=== PATIENT | female | born 1975 | race Caucasian/White ===

== ENCOUNTER → 2017-10-11 | Outpatient (CLI) | payer MEDICARE, MEDICAID | LOC: RAD 09:51 | PROVIDERS: ATTEND Nurse Practitioner Family | DX: Z12.31 Encounter for screening mammogram for malignant neoplasm of breast (principal) | CPT/HCPCS: 77067 ==

== ENCOUNTER → 2018-07-22 | Outpatient (CLI) | payer MEDICARE, MEDICAID ==
[~2018-07-22] MED LIST: ACHD5005 PO; METR500T PO
[2018-07-22 18:05] LABS: BASOPHILS % (AUTO) 0 % (0-10); EOSINOPHILS % (AUTO) 0 % (0-10); HEMATOCRIT 36 % (35-52); HEMOGLOBIN 12.6 G/DL (11.5-16.0); LYMPHOCYTES # (AUTO) 0.3 X 10^3 (1.0-4.0); LYMPHOCYTES % (AUTO) 6 % (12-44); MEAN CORPUSCULAR HEMOGLOBIN 31 PG (25-34); MEAN CORPUSCULAR HGB CONC 35 G/DL (32-36); MEAN CORPUSCULAR VOLUME 89 FL (80-99); MEAN PLATELET VOLUME 9.1 FL (7.4-10.4); MONOCYTES # (AUTO) 0.1 X 10^3 (0.0-1.0); MONOCYTES % (AUTO) 3 % (0-12); NEUTROPHILS # (AUTO) 4.3 X 10^3 (1.8-7.8); NEUTROPHILS % (AUTO) 91 % (42-75); PLATELET COUNT 385 10^3/uL (130-400); RED BLOOD COUNT 4.07 10^6/uL (4.35-5.85); RED CELL DISTRIBUTION WIDTH 13.8 % (10.0-14.5); WHITE BLOOD COUNT 4.7 10^3/uL (4.3-11.0)
[2018-07-22 18:24] LABS: ALANINE AMINOTRANSFERASE 38 U/L (0-55); ALBUMIN 3.5 GM/DL (3.2-4.5); ALKALINE PHOSPHATASE 68 U/L (40-136); AMYLASE 37 U/L (25-125); BILIRUBIN,TOTAL 0.4 MG/DL (0.1-1.0); BUN/CREATININE RATIO 10; CALCIUM 8.8 MG/DL (8.5-10.1); CARBON DIOXIDE 22 MMOL/L (21-32); CHLORIDE 104 MMOL/L (98-107); CREATININE SERUM 0.84 MG/DL (0.60-1.30); GFR ESTIMATED > 60; GLUCOSE 110 MG/DL (70-105); LIPASE 9 U/L (8-78); POTASSIUM 3.1 MMOL/L (3.6-5.0); SODIUM 137 MMOL/L (135-145); TOTAL PROTEIN 6.7 GM/DL (6.4-8.2)
[2018-07-22 18:52] LABS: EOSINOPHILS % (MANUAL) 0 %
[2018-07-22 18:53] LABS: BAND NEUTROPHILS 4 %; BASOPHILS % (MANUAL) 0 %; LYMPHOCYTES % (MANUAL) 5 %; MONOCYTES % (MANUAL) 1 %; NEUTROPHILS % (MANUAL) 90 %; RBC MORPH NORMAL
== END ==
LOC: LAB 17:44
PROVIDERS: ATTEND Nurse Practitioner Family
DX: R50.9 Fever, unspecified (principal); R10.11 Right upper quadrant pain
CPT/HCPCS: 36415; 80053; 82150; 83690; 85007; 85027; 87088

== ENCOUNTER 2018-07-23 19:12 | Emergency (ER) | payer MEDICARE, MEDICAID ==
[~2018-07-23] VITALS: Ht 157.5 cm; Wt 99.8 kg
--- OUTSIDE RECORDS SUMMARY | 2018-07-23 19:20 | XMS REPORT | Continuity of Care Document ---
Author Author [facility] Organization [facility] Address Unknown Phone Unavailable Allergies There is no data. Medications There is no data. Problems Date Dx Coded Attending Type Code Diagnosis Diagnosed By 05/07/2015 JEANA AUGUSTIN MUD CLEANER OPERATOR Ot V76.12 05/26/2015 JEANA AUGUSTIN MUD CLEANER OPERATOR Ot V76.12 10/01/2017 JEANA AUGUSTIN MUD CLEANER OPERATOR Ot Z12.31 ENCNTR SCREEN MAMMOGRAM FOR MALIGNANT NE 10/11/2017 JEANA AUGUSTIN MUD CLEANER OPERATOR Ot Z12.31 ENCNTR SCREEN MAMMOGRAM FOR MALIGNANT NE 10/11/2017 JEANA AUGUSTIN MUD CLEANER OPERATOR Ot Z12.31 ENCNTR SCREEN MAMMOGRAM FOR MALIGNANT NE 11/01/2017 JEANA AUGUSTIN MUD CLEANER OPERATOR Ot Z12.31 ENCNTR SCREEN MAMMOGRAM FOR MALIGNANT NE 11/13/2017 JEANA AUGUSTIN MUD CLEANER OPERATOR Ot Z12.31 ENCNTR SCREEN MAMMOGRAM FOR MALIGNANT NE Procedures There is no data. Results Test Result Range Bacterial urine culture - 07/22/18 17:00 Bacterial urine culture SEE COMMEN NRG COLONY COUNT . NRG Complete blood count (CBC) with automated white blood cell (WBC) differential - 07/22/18 18:00 Blood leukocytes automated count (number/volume) 4.7 10*3/uL 4.3-11.0 Blood erythrocytes automated count (number/volume) 4.07 10*6/uL 4.35-5.85 Venous blood hemoglobin measurement (mass/volume) 12.6 g/dL 11.5-16.0 Blood hematocrit (volume fraction) 36 % 35-52 Automated erythrocyte mean corpuscular volume 89 [foz_us] 80-99 Automated erythrocyte mean corpuscular hemoglobin (mass per erythrocyte) 31 pg 25-34 Automated erythrocyte mean corpuscular hemoglobin concentration measurement ( mass/volume) 35 g/dL 32-36 Automated erythrocyte distribution width ratio 13.8 % 10.0-14.5 Automated blood platelet count (count/volume) 385 10*3/uL 130-400 Automated blood platelet mean volume measurement 9.1 [foz_us] 7.4-10.4 Automated blood neutrophils/100 leukocytes 91 % 42-75 Automated blood lymphocytes/100 leukocytes 6 % 12-44 Blood monocytes/100 leukocytes 3 % 0-12 Automated blood eosinophils/100 leukocytes 0 % 0-10 Automated blood basophils/100 leukocytes 0 % 0-10 Blood neutrophils automated count (number/volume) 4.3 10*3 1.8-7.8 Blood lymphocytes automated count (number/volume) 0.3 10*3 1.0-4.0 Blood monocytes automated count (number/volume) 0.1 10*3 0.0-1.0 Automated eosinophil count 0.0 10*3/uL 0.0-0.3 Automated blood basophil count (count/volume) 0.0 10*3/uL 0.0-0.1 Comprehensive metabolic panel - 07/22/18 18:00 Serum or plasma sodium measurement (moles/volume) 137 mmol/L 135-145 Serum or plasma potassium measurement (moles/volume) 3.1 mmol/L 3.6-5.0 Serum or plasma chloride measurement (moles/volume) 104 mmol/L 98-107 Carbon dioxide 22 mmol/L 21-32 Serum or plasma anion gap determination (moles/volume) 11 mmol/L 5-14 Serum or plasma urea nitrogen measurement (mass/volume) 8 mg/dL 7-18 Serum or plasma creatinine measurement (mass/volume) 0.84 mg/dL 0.60-1.30 Serum or plasma urea nitrogen/creatinine mass ratio 10 NRG Serum or plasma creatinine measurement with calculation of estimated glomerular filtration rate > NRG Serum or plasma glucose measurement (mass/volume) 110 mg/dL 70-105 Serum or plasma calcium measurement (mass/volume) 8.8 mg/dL 8.5-10.1 Serum or plasma total bilirubin measurement (mass/volume) 0.4 mg/dL 0.1-1.0 Serum or plasma alkaline phosphatase measurement (enzymatic activity/volume) 68 U/L 40-136 Serum or plasma aspartate aminotransferase measurement (enzymatic activity/ volume) 56 U/L 5-34 Serum or plasma alanine aminotransferase measurement (enzymatic activity/volume ) 38 U/L 0-55 Serum or plasma protein measurement (mass/volume) 6.7 g/dL 6.4-8.2 Serum or plasma albumin measurement (mass/volume) 3.5 g/dL 3.2-4.5 CALCIUM CORRECTED 9.2 mg/dL 8.5-10.1 Serum or plasma amylase measurement (enzymatic activity/volume) - 07/22/18 18: 00 Serum or plasma amylase measurement (enzymatic activity/volume) 37 U /L 25-125 Lipase - 07/22/18 18:00 Lipase 9 U/L 8-78 Blood manual differential performed detection - 07/22/18 18:00 Blood monocytes/100 leukocytes 1 % NRG Manual blood segmented neutrophils/100 leukocytes 90 % NRG Blood band neutrophils/100 leukocytes 4 % NRG Manual blood lymphocytes/100 leukocytes 5 % NRG Manual eosinophils/100 leukocytes in nose 0 % NRG Manual blood basophils/100 leukocytes 0 % NRG Blood erythrocyte morphology finding identification NORMAL NRG Encounters ACCT No. Visit Date/Time Discharge Status Pt. Type Provider Facility Loc./Unit Complaint [id number] 10/11/2017 09:51:00 10/11/2017 23:59:59 CLS Outpatient JEANA AUGUSTIN [facility] RAD SCREENING [id number] 04/16/2015 07:19:00 04/16/2015 23:59:59 CLS Outpatient JEANA AUGUSTIN [facility] RAD [id number] 07/23/2018 19:13:00 ACT Emergency REYMUNDO MENDOZA MD [facility] ER ABD PAIN [id number] 07/22/2018 17:44:00 ACT Outpatient CYNTHIA GUZMAN APRN [facility] LAB FEVER,ABD PAIN [id number] 04/16/2015 07:19:47 ACT Document Registration
--- OUTSIDE RECORDS SUMMARY | 2018-07-23 19:20 | XMS REPORT | CCD ---
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 Name Role Phone Mildred Saunders PP Unavailable CCM Unavailable Summary Purpose Interface Exchange Insurance Providers Payer name Policy type / Coverage type Covered democrat ID Effective Begin Date Effective End Date WPS Medicare Part B Medicare Part B [id number] 2012 Unknown [facility] Medicare Part B [id number] 2012 Unknown Family history Mother Diagnosis Age At Onset No Family Disease Entered N/A Father Diagnosis Age At Onset No Family Disease Entered N/A Brother Diagnosis Age At Onset No Family Disease Entered N/A Social History Social History Element Codes Description Effective Dates Living arrangements Unknown House 07/13/2011 Employment Unknown Currently employed [employer]) 07/06/[address]: 733691054 Nonsmoker 07/06/[address]: 390507179 Never drinks alcohol 07/06/2011 Has the patient ever used illegal drugs? Unknown Has never used illegal drugs 07/06/2011 Allergies, Adverse Reactions, Alerts Allergies, Adverse Reactions, Alerts data not found Past Medical History Illness Codes Condition Status Onset Date Resolved Date Cerebral palsy, unspecified ICD-9: 343.9 ICD-10: G80.9 Active 06/22/2017 Unknown Encounter for general adult medical examination without abnormal findings ICD-9: V70.0 ICD-10: Z00.00 Active 05/26/2014 Unknown Encounter for screening mammogram for malignant neoplasm of breast ICD-9: V76.10 ICD-10: Z12.31 Active 09/27/2017 Unknown Iliotibial band syndrome, left leg ICD-9: 728.89 ICD-10: M76.32 Active 06/22/2017 Unknown Acute pharyngitis due to other specified organisms ICD-9: 462 ICD-10: J02.8 Active 06/11/2017 Unknown Cough ICD-9: 786.2 ICD-10: R05 Active 06/11/2017 Unknown Enlarged lymph nodes, unspecified ICD-9: 785.6 ICD-10: R59.9 Active 06/11/2017 Unknown Other muscle spasm ICD -9: 728.85 ICD-10: M62.838 Active 04/11/2017 Unknown ROUTINE GYNE EXAM ICD- 9: V72.31 Active 05/20/2012 Unknown Encounter for long-term (current) use of other medications ICD-9: V58.69 Active 06/01/2014 Unknown Encounter for therapeutic drug level monitoring ICD-9: V58.83 Active 06/01/2014 Unknown Visit for TB skin test ICD-9: V74.1 Active 05/28/2014 Unknown Routine medical exam ICD-9: V70.0 Active 05/26/2014 Unknown Seizure disorder ICD-9 : 345.90 Active 05/26/2014 Unknown ACUTE SINUSITIS ICD-9 : 461.9 Active 08/07/2013 Unknown Acute maxillary sinusitis ICD-9: 461.0 Active 11/18/2012 Unknown BPPV (benign paroxysmal positional vertigo) ICD-9: 386.11 Active 11/18/2012 Unknown Chronic rhinitis ICD-9 : 472.0 Active 12/18/2011 Unknown COUGH ICD-9: 786.2 Active 12/18/2011 Unknown Muscle spasm, nocturnal ICD-9: 728.85 Active 07/10/2011 Unknown Cerebral palsy Unknown Active 07/06/2011 Unknown Seizures Unknown Active 07/06/2011 Unknown Problems Condition Codes Effective Dates Condition Status Cerebral palsy, unspecified ICD-9: 343.9 ICD-10: G80.9 06/22/2017 Active Encounter for general adult medical examination without abnormal findings ICD-9: V70.0 ICD-10: Z00.00 05/26/2014 Active Encounter for screening mammogram for malignant neoplasm of breast ICD-9: V76.10 ICD-10: Z12.31 09/27/2017 Active Iliotibial band syndrome, left leg ICD-9: 728.89 ICD-10: M76.32 06/22/2017 Active Acute pharyngitis due to other specified organisms ICD-9: 462 ICD-10: J02.8 06/11/2017 Active Cough ICD-9: 786.2 ICD-10: R05 06/11/2017 Active Enlarged lymph nodes, unspecified ICD-9: 785.6 ICD-10: R59.9 06/11/2017 Active Other muscle spasm ICD -9: 728.85 ICD-10: M62.838 04/11/2017 Active ROUTINE GYNE EXAM ICD- 9: V72.31 05/20/2012 Active Encounter for long-term (current) use of other medications ICD-9: V58.69 2013 Active Encounter for therapeutic drug level monitoring ICD-9: V58.83 06/01/2014 Active Visit for TB skin test ICD-9: V74.1 05/28/2014 Active Routine medical exam ICD-9: V70.0 05/26/2014 Active Seizure disorder ICD-9 : 345.90 05/26/2014 Active ACUTE SINUSITIS ICD-9 : 461.9 08/07/2013 Active Acute maxillary sinusitis ICD-9: 461.0 11/18/2012 Active BPPV (benign paroxysmal positional vertigo) ICD-9: 386.11 11/18/2012 Active Chronic rhinitis ICD-9 : 472.0 12/18/2011 Active COUGH ICD-9: 786.2 12/18/2011 Active Muscle spasm, nocturnal ICD-9: 728.85 07/10/2011 Active Cerebral palsy Unknown 07/06/2011 Active Seizures Unknown 07/06/2011 Active Medications Medication Codes Instructions Start Date Stop Date Status Fill Instructions Ortho Tri-Cyclen (28) 0.18 mg(7)/0.215 mg(7)/0.25 mg(7)-35 mcg tablet RxNorm: 918781 TAKE ONE TABLET BY MOUTH ONCE DAILY AT BEDTIME 11/12/2017 No Stop Date Active Zithromax Z-Juaquin 250 mg tablet RxNorm: 771611 1 Tablet(s) PO UD 10/16/2017 No Stop Date Active cephalexin 500 mg tablet RxNorm: 786679 1 Tablet(s) PO TID 06/17/2017 Inactive Keppra 500 mg tablet RxNorm: 427371 TAKE ONE-HALF TABLET BY MOUTH TWICE DAILY 05/21/2017 11/16/2017 Active Kenalog 40 mg/mL suspension for injection RxNorm: 0341761 Milliliter(s) Inj 04/11/2017 04/11/2017 Inactive Keppra 500 mg tablet RxNorm: 802428 TAKE ONE-HALF TABLET BY MOUTH TWICE DAILY 11/20/2016 05/18/2017 Inactive Ortho Tri-Cyclen (28) 0.18 mg(7)/0.215 mg(7)/0.25 mg(7)-35 mcg tablet RxNorm: 319916 TAKE ONE TABLET BY MOUTH ONCE DAILY AT BEDTIME 09/19/2016 11/11/2017 Inactive Ortho Tri-Cyclen (28) 0.18 mg(7)/0.215 mg(7)/0.25 mg(7)-35 mcg tablet RxNorm: 510891 1 Tablet(s) PO daily TAKE ONE TABLET BY MOUTH AT BEDTIME 04/03/2016 09/17/2016 Inactive Fill when patient requests a refill Keppra 500 mg tablet RxNorm: 277797 TAKE ONE-HALF TABLET BY MOUTH TWICE DAILY 02/07/2016 11/02/2016 Inactive Ortho Tri-Cyclen (28) 0.18 mg(7)/0.215 mg(7)/0.25 mg(7)-35 mcg tablet RxNorm: 093119 1 Tablet(s) PO daily TAKE ONE TABLET BY MOUTH AT BEDTIME 08/23/2015 04/02/2016 Inactive Calcium 500 + D 500 mg (1,250 mg)-200 unit tablet RxNorm: 648046 1 Tablet(s) PO BID 06/02/2015 No Stop Date Active Keppra 500 mg tablet RxNorm: 719862 Tablet(s) TAKE ONE-HALF TABLET BY MOUTH TWICE DAILY 05/13/2015 02/06/2016 Inactive Keppra 500 mg tablet RxNorm: 235286 Tablet(s) TAKE ONE-HALF TABLET BY MOUTH TWICE DAILY 02/25/2015 05/12/2015 Inactive [SAVINGS FOR NON-COVERED DRUGS -- BIN:[id number], PCN: [id number], Group: [id number], ID# [id number], Questions: . THIS IS NOT INSURANCE.] Ortho Tri-Cyclen (28) 0.18 mg(7)/0.215 mg(7)/0.25 mg(7)-35 mcg tablet RxNorm: 012113 TAKE ONE TABLET BY MOUTH AT BEDTIME 07/09/2014 08/22/2015 Inactive Keppra 500 mg tablet RxNorm: 290952 TAKE ONE-HALF TABLET BY MOUTH TWICE DAILY 06/08/2014 02/24/2015 Inactive azithromycin 500 mg tablet RxNorm: 166822 1 Tablet(s) PO 2013 No Stop Date Active give zpak as directed Kenalog 40 mg/mL suspension for injection RxNorm: 4038470 Milliliter(s) Inj 08/07/2013 08/07/2013 Inactive Ortho Tri-Cyclen (28) 0.18 mg(7)/0.215 mg(7)/0.25 mg(7)-35 mcg tablet RxNorm: 228512 Tablet(s) PO TAKE ONE TABLET BY MOUTH AT BEDTIME 201207/08/2014 Inactive Keppra 500 mg tablet RxNorm: 255392 Tablet(s) PO TAKE ONE-HALF TABLET BY MOUTH TWICE DAILY 05/13/2013 06/07/2014 Inactive fluticasone 50 mcg/actuation Nasal [place], Susp RxNorm: 8854905 1 [place] NASAL BID one spray in each nostril twice daily 11/18/2012 05/18/2013 Inactive azithromycin 500 mg tablet RxNorm: 537598 1 Tablet(s) PO daily 11/18/2012 11/27/2012 Inactive Ortho Tri-Cyclen (28) 0.18 mg(7)/0.215 mg(7)/0.25 mg(7)-35 mcg tablet RxNorm: 581483 1 Tablet(s) PO QHS 05/20/20122012 Inactive TAKE ONE TABLET BY MOUTH EVERY DAY Keppra 500 mg tablet RxNorm: 145987 1/2 Tablet(s) PO BID 201105/12/2013 Inactive Kenalog 40 mg/mL Susp for Injection RxNorm: 7289556 1 Milliliter(s) Inj 12/18/2011 12/18/2011 Inactive fluticasone 50 mcg/actuation Nasal [place], Susp RxNorm: 1526821 1 [place] NASAL BID one spray in each nostril twice daily 12/18/2011 04/15/2012 Inactive Ortho Tri-Cyclen (28) 0.18/0.215/0.25 mg-35 mcg(28) tablet RxNorm: 485709 Tablet(s ) PO 10/20/2011 05/19/2012 Inactive TAKE ONE TABLET BY MOUTH EVERY DAY Keppra 500 mg tablet RxNorm: 891409 1/2 Tablet(s) PO BID 201005/19/2012 Inactive multivitamin Oral RxNorm: Oral No Start Date Active Zithromax Z-Juaquin 250 mg tablet RxNorm: 917901 Tablet(s) PO UD No Start Date 04/08/2016 Inactive Keppra 500 mg Tab RxNorm: 094005 1/2 Tablet(s) PO BID No Start Date 08/27/2011 Inactive Ortho Tri-Cyclen (28) 0.18/0.215/0.25 mg-35 mcg(28) Tab RxNorm: 099340 1 Tablet(s ) PO daily No Start Date 10/19/2011 Inactive Zithromax Z-Juaquin 250 mg tablet RxNorm: 781508 1 Tablet(s) PO UD No Start Date 10/15/2017 Inactive Calcium 500 + D 500 mg (1,250 mg)-200 unit tablet RxNorm: 877581 1 Tablet(s) PO daily No Start Date 06/01/2015 Inactive Medication Administered Medication Codes Instructions Start Date Status Kenalog 40 mg/mL suspension for injection RxNorm: 0772273 Milliliter 04/11/2017 No longer Active Kenalog 40 mg/mL suspension for injection RxNorm: 4325901 Milliliter 08/07/2013 No longer Active Kenalog 40 mg/mL Susp for Injection RxNorm: 6019953 1Milliliter 12/18/2011 No longer Active Immunizations Vaccine Codes Date Status Influenza CVX: 141 07/02/2017 completed Influenza CVX: 141 05/21/2015 completed PPD Unknown 05/28/2014 completed Influenza CVX: 141 08/07/2013 completed Assessments Condition Codes Effective Dates Encounter for general adult medical examination without abnormal findings ICD-10: Z00.00 ICD-9: V70.0 09/27/2017 Encounter for screening mammogram for malignant neoplasm of breast ICD-10: Z12.31 ICD-9: V76.10 09/27/2017 Cerebral palsy, unspecified ICD-10: G80.9 ICD-9: 343.9 06/22/2017 Iliotibial band syndrome, left leg ICD-10: M76.32 ICD-9: 728.89 06/22/2017 Enlarged lymph nodes, unspecified ICD-10: R59.9 ICD-9: 785.6 06/11/2017 Cough ICD-10: R05 ICD-9: 786.2 06/11/2017 Acute pharyngitis due to other specified organisms ICD-10: J02.8 ICD-9: 462 06/11/2017 Other muscle spasm ICD-10: M62.838 ICD-9: 728.85 04/11/2017 EPILEPSY NOS, NOT INTRACT ICD-9: 345.90 04/09/2015 ROUTINE GYNE EXAM ICD-9: V72.31 2014 Encounter for therapeutic drug level monitoring ICD-9: V58.83 06/01/2014 Routine medical exam ICD-9: V70.0 2013 Encounter for long-term (current) use of other medications ICD-9: V58.69 06/01/2014 Visit for TB skin test ICD-9: V74.1 05/28 ACUTE SINUSITIS ICD-9: 461.9 08/07/2013 BPPV (benign paroxysmal positional vertigo) ICD-9: 386.11 11/18/2012 Acute maxillary sinusitis ICD-9: 461.0 CHRONIC RHINITIS ICD-9: 472.0 11/18/2012 COUGH ICD-9: 786.2 12/18/2011 Muscle spasm, nocturnal ICD-9: 728.85 Reason For Visit Reason For Visit Effective Dates Notes well woman exam (40-65 years) 09/27/2017 pain, limb 06/22/2017 lymph node enlargement/mass 06/11/2017 cough 04/11/2017 well woman exam (40-65 years) 04/10/2016 well woman exam (40-65 years) 04/09/2015 seizure 05/26/2014 cough 08/07/2013 seizure 05/19/2013 sinus congestion 11/18/2012 well woman exam (18-39 years) 05/20/2012 seizure 12/18/2011 pt has epilepsy, pt states she hasn't had any seizures seizure 07/10/2011 Results Observation Observation Code Item Item Code Result Date Levetiracetam (Keppra) S 982980 LEVETIRACETAM (KEPPRA) 3.7 ug/mL 10/02/2017 Comp Metabolic Vxd074 NA 142 mEq/L 10/01/2017 Comp Metabolic Qpt321 K 4.4 mEq/L 10/01/2017 Comp Metabolic Ung236 CL 108 mEq/L 10/01/2017 Comp Metabolic Axz646 CO2 27.0 mEq/L 10/01/2017 Comp Metabolic Gbe203 ANION GAP 11 10/01/2017 Comp Metabolic Xss038 GLUCOSE 82 mg/dL 10/01/2017 Comp Metabolic Uaz663 Creat 0.8 mg/dL 10/01/2017 Comp Metabolic Jtz583 eGFR 84 ml/min/1.73m2 10/01/2017 Comp Metabolic Alc299 BUN 12 mg/dL 10/01/2017 Comp Metabolic Xuu468 B/C Ratio 15.2 Ratio 10/01/2017 Comp Metabolic Zjy866 CALCIUM 8.5 mg/dL 10/01/2017 Comp Metabolic Rad918 ALK PHOS 50 U/L 10/01/2017 Comp Metabolic Bzc818 AST(SGOT) 13 U/L 10/01/2017 Comp Metabolic Trq764 ALT(SGPT) 15 U/L 10/01/2017 Comp Metabolic Ipl362 BILI T 0.4 mg/dL 10/01/2017 Comp Metabolic Uwm905 ALBUMIN 3.5 g/dL 10/01/2017 Comp Metabolic Ubc815 TPRO 5.9 g/dL 10/01/2017 Comp Metabolic Ddq622 GLOB 2.4 g/dL 10/01/2017 Comp Metabolic Qlc650 A/G Ratio 1.5 Ratio 10/01/2017 Comp Metabolic Svz988 Osmo 282 mOsmo 10/01/2017 Cbc With Differential Ord2 WBC 5.09 K/ul 10/01/2017 Cbc With Differential Ord2 RBC 4.11 M/ul 10/01/2017 Cbc With Differential Ord2 HGB 12.7 g/dl 10/01/2017 Cbc With Differential Ord2 HCT 38.9 % 10/01/2017 Cbc With Differential Ord2 Neut% 64.3 % 10/01/2017 Cbc With Differential Ord2 MCV 94.6 fl 10/01/2017 Cbc With Differential Ord2 Lymph% 20.4 % 10/01/2017 Cbc With Differential Ord2 MCH 30.9 pg 10/01/2017 Cbc With Differential Ord2 Sharkey% 10.4 % 10/01/2017 Cbc With Differential Ord2 Eos% 3.9 % 10/01/2017 Cbc With Differential Ord2 MCHC 32.6 pg 10/01/2017 Cbc With Differential Ord2 Baso% 1.0 % 10/01/2017 Cbc With Differential Ord2 PLT 422 K/ul 10/01/2017 Cbc With Differential Ord2 RDW 14.6 % 10/01/2017 Cbc With Differential Ord2 Neut ABS# 3.27 K/ul 10/01/2017 Cbc With Differential Ord2 Lymph ABS# 1.04 K/ul 10/01/2017 Cbc With Differential Ord2 Sharkey ABS# 0.5 K/ul 10/01/2017 Cbc With Differential Ord2 Eos ABS# 0.2 K/ul 10/01/2017 Cbc With Differential Ord2 Baso ABS# 0.1 K/ul 10/01/2017 Lipid Ord30 CHOL 153 mg/dL 10/01/2017 Lipid Ord30 HDL 55.0 mg/dl 10/01/2017 Lipid Ord30 TRIG 148 mg/dL 10/01/2017 Lipid Ord30 LDL 68 mg/dL 10/01/2017 Lipid Ord30 C/HDL 2.8 Ratio 10/01/2017 Tsh Ord6 hTSH II 1.25 uIU/mL 10/01/2017 C RAP A SC 5047124 Strep A Negative 06/11/2017 Comp Metabolic Rln609 NA 141 mEq/L 04/11/2017 Comp Metabolic Epy680 K 4.3 mEq/L 04/11/2017 Comp Metabolic Zun889 CL 107 mEq/L 04/11/2017 Comp Metabolic Tvn075 CO2 25.0 mEq/L 04/11/2017 Comp Metabolic Wrl485 ANION GAP 13 04/11/2017 Comp Metabolic Rrj313 GLUCOSE 74 mg/dL 04/11/2017 Comp Metabolic Yht922 Creat 0.7 mg/dL 04/11/2017 Comp Metabolic Nmy418 eGFR 94 ml/min/1.73m2 04/11/2017 Comp Metabolic Iol432 BUN 12 mg/dL 04/11/2017 Comp Metabolic Nhg641 B/C Ratio 16.7 Ratio 04/11/2017 Comp Metabolic Fnx330 CALCIUM 8.5 mg/dL 04/11/2017 Comp Metabolic Dsu888 ALK PHOS 50 U/L 04/11/2017 Comp Metabolic Qnj928 AST(SGOT) 16 U/L 04/11/2017 Comp Metabolic Ldn982 ALT(SGPT) 18 U/L 04/11/2017 Comp Metabolic Jnw487 BILI T 0.2 mg/dL 04/11/2017 Comp Metabolic Eqo632 ALBUMIN 3.3 g/dL 04/11/2017 Comp Metabolic Rmz834 TPRO 5.9 g/dL 04/11/2017 Comp Metabolic Qch837 GLOB 2.6 g/dL 04/11/2017 Comp Metabolic Ijo917 A/G Ratio 1.3 Ratio 04/11/2017 Comp Metabolic Ueb885 Osmo 280 mOsmo 04/11/2017 Levetiracetam (Keppra) S 919556 LEVETIRACETAM (KEPPRA) 3.0 ug/mL 07/12/2016 Comp Metabolic Bjv676 NA 138 mEq/L 07/11/2016 Comp Metabolic Pma857 K 4.6 mEq/L 07/11/2016 Comp Metabolic Kgr693 CL 103 mEq/L 07/11/2016 Comp Metabolic Xsr659 CO2 30.0 mEq/L 07/11/2016 Comp Metabolic Cba693 ANION GAP 10 07/11/2016 Comp Metabolic Lqa977 GLUCOSE 83 mg/dL 07/11/2016 Comp Metabolic Bch556 Creat 0.8 mg/dL 07/11/2016 Comp Metabolic Tov220 eGFR 87 ml/min/1.73m2 07/11/2016 Comp Metabolic The506 BUN 14 mg/dL 07/11/2016 Comp Metabolic Ifh364 B/C Ratio 18.2 Ratio 07/11/2016 Comp Metabolic Jna802 CALCIUM 9.1 mg/dL 07/11/2016 Comp Metabolic Hjs956 ALK PHOS 52 U/L 07/11/2016 Comp Metabolic Mhr227 AST(SGOT) 15 U/L 07/11/2016 Comp Metabolic Zdv962 ALT(SGPT) 14 U/L 07/11/2016 Comp Metabolic Ijp091 BILI T 0.4 mg/dL 07/11/2016 Comp Metabolic Doq334 ALBUMIN 3.6 g/dL 07/11/2016 Comp Metabolic Sum761 TPRO 6.0 g/dL 07/11/2016 Comp Metabolic Xsy746 GLOB 2.5 g/dL 07/11/2016 Comp Metabolic Reu684 A/G Ratio 1.4 Ratio 07/11/2016 Comp Metabolic Azs604 Osmo 275 mOsmo 07/11/2016 Tsh Ord6 hTSH II 2.07 uIU/mL 07/11/2016 Cbc With Differential Ord2 WBC 6.56 K/ul 07/11/2016 Cbc With Differential Ord2 RBC 4.14 M/ul 07/11/2016 Cbc With Differential Ord2 HGB 12.7 g/dl 07/11/2016 Cbc With Differential Ord2 HCT 38.6 % 07/11/2016 Cbc With Differential Ord2 Neut% 70.4 % 07/11/2016 Cbc With Differential Ord2 MCV 93.2 fl 07/11/2016 Cbc With Differential Ord2 Lymph% 17.1 % 07/11/2016 Cbc With Differential Ord2 MCH 30.7 pg 07/11/2016 Cbc With Differential Ord2 Sharkey% 8.5 % 07/11/2016 Cbc With Differential Ord2 MCHC 32.9 pg 07/11/2016 Cbc With Differential Ord2 Eos% 3.4 % 07/11/2016 Cbc With Differential Ord2 Baso% 0.6 % 07/11/2016 Cbc With Differential Ord2 PLT 408 K/ul 07/11/2016 Cbc With Differential Ord2 RDW 14.5 % 07/11/2016 Cbc With Differential Ord2 Neut ABS# 4.62 K/ul 07/11/2016 Cbc With Differential Ord2 Lymph ABS# 1.12 K/ul 07/11/2016 Cbc With Differential Ord2 Sharkey ABS# 0.6 K/ul 07/11/2016 Cbc With Differential Ord2 Eos ABS# 0.2 K/ul 07/11/2016 Cbc With Differential Ord2 Baso ABS# 0.0 K/ul 07/11/2016 Lipid Ord30 CHOL 150 mg/dL 07/11/2016 Lipid Ord30 HDL 52.0 mg/dl 07/11/2016 Lipid Ord30 TRIG 179 mg/dL 07/11/2016 Lipid Ord30 LDL 62 mg/dL 07/11/2016 Lipid Ord30 C/HDL 2.9 Ratio 07/11/2016 Levetiracetam (Keppra) S 743445 LEVETIRACETAM (KEPPRA) 3.7 ug/mL 06/01/2015 Lipid Ord30 CHOL 146 mg/dL 05/31/2015 Lipid Ord30 HDL 51.0 mg/dl 05/31/2015 Lipid Ord30 TRIG 144 mg/dL 05/31/2015 Lipid Ord30 LDL 66 mg/dL 05/31/2015 Lipid Ord30 C/HDL 2.9 Ratio 05/31/2015 Cbc With Differential Ord2 WBC 5.8 K/uL 05/31/2015 Cbc With Differential Ord2 LYM 1.0 K/uL 05/31/2015 Cbc With Differential Ord2 LYM% 17.7 % 05/31/2015 Cbc With Differential Ord2 NEUT/GRAN 4.5 K/uL 05/31/2015 Cbc With Differential Ord2 NEUT/GRAN % 77.2 % 05/31/2015 Cbc With Differential Ord2 MID 0.3 K/uL 05/31/2015 Cbc With Differential Ord2 MID% 5.1 % 05/31/2015 Cbc With Differential Ord2 RBC 4.10 M/uL 05/31/2015 Cbc With Differential Ord2 HGB 12.3 g/dL 05/31/2015 Cbc With Differential Ord2 HCT 38.7 % 05/31/2015 Cbc With Differential Ord2 MCV 94 fL 05/31/2015 Cbc With Differential Ord2 MCH 30 pg 05/31/2015 Cbc With Differential Ord2 MCHC 32 g/dL 05/31/2015 Cbc With Differential Ord2 PLT 386 K/uL 05/31/2015 Cbc With Differential Ord2 RDW 13.7 % 05/31/2015 Tsh Ord6 hTSH II 1.15 uIU/mL 05/31/2015 Comp Metabolic Bwd318 NA 137 mEq/L 05/31/2015 Comp Metabolic Buh240 K 4.1 mEq/L 05/31/2015 Comp Metabolic Xjn316 CL 106 mEq/L 05/31/2015 Comp Metabolic Tay617 CO2 24.0 mEq/L 05/31/2015 Comp Metabolic Cqv630 ANION GAP 11 05/31/2015 Comp Metabolic Env704 GLUCOSE 77 mg/dL 05/31/2015 Comp Metabolic Qjb986 Creat 0.8 mg/dL 05/31/2015 Comp Metabolic Gif751 eGFR 84 ml/min/1.73m2 05/31/2015 Comp Metabolic Jtl001 BUN 13 mg/dL 05/31/2015 Comp Metabolic Uhk690 B/C Ratio 16.3 Ratio 05/31/2015 Comp Metabolic Kat580 CALCIUM 8.4 mg/dL 05/31/2015 Comp Metabolic Lbg716 ALK PHOS 40 U/L 05/31/2015 Comp Metabolic Qvp489 AST(SGOT) 12 U/L 05/31/2015 Comp Metabolic Val106 ALT(SGPT) 12 U/L 05/31/2015 Comp Metabolic Lxx771 BILI T 0.3 mg/dL 05/31/2015 Comp Metabolic Hwq298 ALBUMIN 3.3 g/dL 05/31/2015 Comp Metabolic Vnu430 TPRO 5.4 g/dL 05/31/2015 Comp Metabolic Rff275 GLOB 2.1 g/dL 05/31/2015 Comp Metabolic Ucv841 A/G Ratio 1.6 Ratio 05/31/2015 Comp Metabolic Svz583 Osmo 273 mOsmo 05/31/2015 LEVETIRACE 6448614 LEVETIRACE 4 mcg/mL 06/04/2014 CBC 8408909 WBC 7.4 10e9/L 06/01/2014 CBC 9578513 RBC 4.18 10e12/L 06/01/2014 CBC 9896612 HGB 13.2 g/dL 06/01/2014 CBC 3194020 HCT DET 39.5 % 06/01/2014 CBC 7672860 MCV 94.5 fL 06/01/2014 CBC 4585457 MCH 31.6 pg 06/01/2014 CBC 8764376 MCHC 33.4 g/dL 06/01/2014 CBC 5075819 PLT 378 10e9/L 06/01/2014 CBC 8968777 MPV 10.7 fL 06/01/2014 CBC 0683358 LYNETTE % 74.0 % 06/01/2014 CBC 3191201 LY % 15.0 % 06/01/2014 CBC 3480895 MON % 8.0 % 06/01/2014 CBC 8083936 EOS % 2.2 % 06/01/2014 CBC 9576652 BASO % 0.8 % 06/01/2014 CBC 1680046 RDW 13.0 % 06/01/2014 CBC 4298669 ABS LYNETTE 5.48 10e9/L 06/01/2014 CBC 6471294 ABS LYMPH 1.11 10e9/L 06/01/2014 CBC 3718745 ABS MONO 0.59 10e9/L 06/01/2014 CBC 8853310 ABS EOS 0.16 10e9/L 06/01/2014 CBC 0167201 ABS BASO 0.06 10e9/L 06/01/2014 CBC 5557365 RDW-SD 43.5 fL 06/01/2014 TSH 1829401 TSH 1.026 uIU/ML 06/01/2014 GFR CALC 5375501 GFR AA >60 ML/MIN 06/01/2014 GFR CALC 9018575 GFR NON-AA >60 ML/MIN 06/01/2014 CHEM 14 1563074 AST 12 U/L 06/01/2014 CHEM 14 20280418 ALT 13 IU/L 06/01/2014 CHEM 14 1713980 BUN 13 MG/DL 06/01/2014 CHEM 14 5957394 ALBUMIN 3.8 GM/DL 06/01/2014 CHEM 14 2993810 CHLORIDE 109 MMOL/L 06/01/2014 CHEM 14 8716249 BILI TOT 0.4 MG/DL 06/01/2014 CHEM 14 2154033 ALK PHOS 45 U/L 06/01/2014 CHEM 14 4969565 SODIUM 139 MMOL/L 06/01/2014 CHEM 14 2532777 CREATININE 0.81 MG/DL 06/01/2014 CHEM 14 5917569 CALCIUM 8.5 MG/DL 06/01/2014 CHEM 14 2309830 POTASSIUM 4.3 MMOL/L 06/01/2014 CHEM 14 6415112 PROT TOT 5.8 GM/DL 06/01/2014 CHEM 14 3112701 GLUCOSE 90 MG/DL 06/01/2014 CHEM 14 3259260 BICARB 25 MMOL/L 06/01/2014 CHEM 14 8419034 ANION GAP 5 MEQ/L 06/01/2014 LIPID GRP HDL TEST 51 MG/DL 06/01/2014 LIPID GRP TRIG 108 MG/DL 06/01/2014 LIPID GRP TEST LDL 75 MG/DL 06/01/2014 LIPID GRP CHOL 148 MG/DL 06/01/2014 LIPID GRP RCHOL/HDL 2.90 RATIO 06/01/2014 LIPID GRP NON-HDL CH 97 MG/DL 06/01/2014 LEVETIRACE 1865839 LEVETIRACE 3 mcg/mL 05/23/2013 CBC 5861915 WBC 6.9 10e9/L 05/20/2013 CBC 6103554 RBC 3.88 10e12/L 05/20/2013 CBC 5465752 HGB 12.2 g/dL 05/20/2013 CBC 2275546 HCT DET 35.8 % 05/20/2013 CBC 0709091 MCV 92.3 fL 05/20/2013 CBC 8554351 MCH 31.4 pg 05/20/2013 CBC 9390811 MCHC 34.1 g/dL 05/20/2013 CBC 4020602 PLT 381 10e9/L 05/20/2013 CBC 1816919 MPV 10.8 fL 05/20/2013 CBC 3834360 LYNETTE % 75.9 % 05/20/2013 CBC 7682456 LY % 13.1 % 05/20/2013 CBC 5475982 MON % 7.8 % 05/20/2013 CBC 3269546 EOS % 2.6 % 05/20/2013 CBC 3221365 BASO % 0.6 % 05/20/2013 CBC 3581375 RDW 13.1 % 05/20/2013 CBC 4283114 ABS LYNETTE 5.24 10e9/L 05/20/2013 CBC 1107586 ABS LYMPH 0.90 10e9/L 05/20/2013 CBC 0889728 ABS MONO 0.54 10e9/L 05/20/2013 CBC 1086605 ABS EOS 0.18 10e9/L 05/20/2013 CBC 8703592 ABS BASO 0.04 10e9/L 05/20/2013 CBC 0872223 RDW-SD 43.3 fL 05/20/2013 GFR CALC 4604628 GFR AA >60 ML/MIN 05/20/2013 GFR CALC 9027366 GFR NON-AA >60 ML/MIN 05/20/2013 LIPID GRP HDL TEST 51 MG/DL 05/20/2013 LIPID GRP TRIG 165 MG/DL 05/20/2013 LIPID GRP TEST LDL 67 MG/DL 05/20/2013 LIPID GRP CHOL 151 MG/DL 05/20/2013 LIPID GRP RCHOL/HDL 2.96 RATIO 05/20/2013 CHEM 14 6997691 AST 12 U/L 05/20/2013 CHEM 14 2704268 ALT 11 IU/L 05/20/2013 CHEM 14 5174159 BUN 13 MG/DL 05/20/2013 CHEM 14 2530921 ALBUMIN 3.6 GM/DL 05/20/2013 CHEM 14 4312721 CHLORIDE 110 MMOL/L 05/20/2013 CHEM 14 9925070 BILI TOT 0.4 MG/DL 05/20/2013 CHEM 14 1797874 ALK PHOS 35 U/L 05/20/2013 CHEM 14 3460280 SODIUM 139 MMOL/L 05/20/2013 CHEM 14 4705580 CREATININE 0.76 MG/DL 05/20/2013 CHEM 14 1397286 CALCIUM 8.4 MG/DL 05/20/2013 CHEM 14 3762177 POTASSIUM 4.1 MMOL/L 05/20/2013 CHEM 14 3713666 PROT TOT 5.9 GM/DL 05/20/2013 CHEM 14 5806971 GLUCOSE 79 MG/DL 05/20/2013 CHEM 14 3823647 BICARB 23 MMOL/L 05/20/2013 CHEM 14 1016109 ANION GAP 6 MEQ/L 05/20/2013 TSH 2362512 TSH 1.738 uIU/ML 05/20/2013 LEVETIRACE 4571837 LEVETIRACE 8 mcg/mL 05/23/2012 CHEM 14 0027002 AST 12 U/L 05/20/2012 CHEM 14 7708347 ALT 11 IU/L 05/20/2012 CHEM 14 2191411 BUN 12 MG/DL 05/20/2012 CHEM 14 1433969 ALBUMIN 4.1 GM/DL 05/20/2012 CHEM 14 9000598 CHLORIDE 104 MMOL/L 05/20/2012 CHEM 14 3729664 BILI TOT 0.4 MG/DL 05/20/2012 CHEM 14 2635891 ALK PHOS 46 U/L 05/20/2012 CHEM 14 2138409 SODIUM 138 MMOL/L 05/20/2012 CHEM 14 2006747 CREATININE 0.75 MG/DL 05/20/2012 CHEM 14 1283122 CALCIUM 9.1 MG/DL 05/20/2012 CHEM 14 7415830 POTASSIUM 4.1 MMOL/L 05/20/2012 CHEM 14 8167364 PROT TOT 6.6 GM/DL 05/20/2012 CHEM 14 4912700 GLUCOSE 77 MG/DL 05/20/2012 CHEM 14 1838229 BICARB 22 MMOL/L 05/20/2012 CHEM 14 1962820 ANION GAP 12 MEQ/L 05/20/2012 GFR CALC 5853519 GFR AA >60 ML/MIN 05/20/2012 GFR CALC 7063805 GFR NON-AA >60 ML/MIN 05/20/2012 LIPID GRP HDL TEST 61 MG/DL 05/20/2012 LIPID GRP TRIG 118 MG/DL 05/20/2012 LIPID GRP TEST LDL 76 MG/DL 05/20/2012 LIPID GRP CHOL 161 MG/DL 05/20/2012 LIPID GRP RCHOL/HDL 2.64 RATIO 05/20/2012 TSH 2874111 TSH 1.355 uIU/ML 05/20/2012 CBC 6849170 WBC 8.9 10e9/L 05/20/2012 CBC 2260133 RBC 4.34 10e12/L 05/20/2012 CBC 9511972 HGB 12.9 g/dL 05/20/2012 CBC 8688460 HCT DET 39.5 % 05/20/2012 CBC 9430993 MCV 91.0 fL 05/20/2012 CBC 9102832 MCH 29.7 pg 05/20/2012 CBC 5539180 MCHC 32.7 g/dL 05/20/2012 CBC 3485278 PLT 403 10e9/L 05/20/2012 CBC 9282407 MPV 10.4 fL 05/20/2012 CBC 0227746 LYNETTE % 86.0 % 05/20/2012 CBC 8124854 LY % 9.6 % 05/20/2012 CBC 2869200 MON % 3.6 % 05/20/2012 CBC 2693513 EOS % 0.4 % 05/20/2012 CBC 2033658 BASO % 0.4 % 05/20/2012 CBC 1839409 RDW 13.6 % 05/20/2012 CBC [id number] ABS LYNETTE 7.65 10e9/L 05/20/2012 CBC [id number] ABS LYMPH 0.85 10e9/L 05/20/2012 CBC [id number] ABS MONO 0.32 10e9/L 05/20/2012 CBC [id number] ABS EOS 0.04 10e9/L 05/20/2012 CBC [id number] ABS BASO 0.04 10e9/L 05/20/2012 CBC [id number] RDW-SD 43.8 fL 05/20/2012 Review of Systems System Result Effective Dates Constitutional No recent illness 2016 Constitutional No chills 09/27/2017 Constitutional No fever 09/27/2017 Constitutional No insomnia 09/27/2017 Eyes No vision change 09/27/2017 Ears/Nose/Throat/Neck No dizziness 2016 Ears/Nose/Throat/Neck No nasal allergies 09/27/2017 Ears/Nose/Throat/Neck No nasal discharge 09/27/2017 Ears/Nose/Throat/Neck No sore throat Cardiovascular No chest pain/pressure Cardiovascular No claudication 2016 Cardiovascular No dyspnea 09/27/2017 Respiratory No dyspnea 09/27/2017 Gastrointestinal No constipation 2016 Gastrointestinal No diarrhea 09/27/2017 Gastrointestinal No gastroesophageal reflux 09/27/2017 Gastrointestinal No nausea 09/27/2017 Genitourinary/Nephrology No urinary urgency 09/27/2017 Genitourinary/Nephrology No urinary frequency 09/27/2017 Musculoskeletal No stiffness 09/27/2017 Musculoskeletal No swelling 09/27/2017 Dermatologic No mole change 09/27/2017 Dermatologic No rash 09/27/2017 Dermatologic No sores 09/27/2017 Psychiatric No anxiety 09/27/2017 Psychiatric No depression 09/27/2017 Dermatologic callus 09/27/2017 Constitutional No recent illness 2016 Constitutional No anorexia 06/22/2017 Constitutional No night sweats 2016 Constitutional No chills 06/22/2017 Constitutional No diaphoresis 06/22/2017 Constitutional No fatigue 06/22/2017 Constitutional No fever 06/22/2017 Constitutional No insomnia 06/22/2017 Constitutional No malaise 06/22/2017 Constitutional No weight loss 06/22/2017 Constitutional No weight gain 06/22/2017 Musculoskeletal joint complaint 2016 Musculoskeletal muscle weakness 2016 Constitutional recent illness 06/11/2017 Constitutional fatigue 06/11/2017 Constitutional fever 06/11/2017 Constitutional malaise 06/11/2017 Ears/Nose/Throat/Neck facial pain 2016 Cardiovascular No exercise intolerance Cardiovascular fatigue 06/11/2017 Respiratory cough 06/11/2017 Ears/Nose/Throat/Neck sore throat 2016 Ears/Nose/Throat/Neck No nasal allergies 06/11/2017 Ears/Nose/Throat/Neck No hoarseness 06/11 Psychiatric No anxiety 06/11/2017 Psychiatric No depression 06/11/2017 Dermatologic No rash 06/11/2017 Dermatologic No sores 06/11/2017 Constitutional No recent illness 2016 Constitutional No chills 04/11/2017 Constitutional No fever 04/11/2017 Constitutional No insomnia 04/11/2017 Eyes No vision change 04/11/2017 Ears/Nose/Throat/Neck No dizziness 2016 Ears/Nose/Throat/Neck No nasal allergies 04/11/2017 Ears/Nose/Throat/Neck No nasal discharge 04/11/2017 Ears/Nose/Throat/Neck No sore throat Cardiovascular No chest pain/pressure Cardiovascular No claudication 2016 Cardiovascular No dyspnea 04/11/2017 Respiratory No dyspnea 04/11/2017 Gastrointestinal No constipation 2016 Gastrointestinal No diarrhea 04/11/2017 Gastrointestinal No gastroesophageal reflux 04/11/2017 Gastrointestinal No nausea 04/11/2017 Genitourinary/Nephrology No urinary urgency 04/11/2017 Genitourinary/Nephrology No urinary frequency 04/11/2017 Musculoskeletal No stiffness 04/11/2017 Musculoskeletal No swelling 04/11/2017 Dermatologic No mole change 04/11/2017 Dermatologic No rash 04/11/2017 Dermatologic No sores 04/11/2017 Psychiatric No anxiety 04/11/2017 Psychiatric No depression 04/11/2017 Respiratory cough 04/11/2017 Constitutional No recent illness 2015 Constitutional No chills 04/10/2016 Constitutional No fever 04/10/2016 Constitutional No insomnia 04/10/2016 Eyes No vision change 04/10/2016 Ears/Nose/Throat/Neck No dizziness 2015 Ears/Nose/Throat/Neck No nasal allergies 04/10/2016 Ears/Nose/Throat/Neck No nasal discharge 04/10/2016 Ears/Nose/Throat/Neck No sore throat Cardiovascular No chest pain/pressure Cardiovascular No claudication 2015 Cardiovascular No dyspnea 04/10/2016 Respiratory No dyspnea 04/10/2016 Gastrointestinal No constipation 2015 Gastrointestinal No diarrhea 04/10/2016 Gastrointestinal No gastroesophageal reflux 04/10/2016 Gastrointestinal No nausea 04/10/2016 Genitourinary/Nephrology No urinary urgency 04/10/2016 Genitourinary/Nephrology No urinary frequency 04/10/2016 Musculoskeletal No stiffness 04/10/2016 Musculoskeletal No swelling 04/10/2016 Dermatologic No mole change 04/10/2016 Dermatologic No rash 04/10/2016 Dermatologic No sores 04/10/2016 Psychiatric No anxiety 04/10/2016 Psychiatric No depression 04/10/2016 Constitutional No recent illness 2014 Constitutional No anorexia 04/09/2015 Constitutional No night sweats 2014 Constitutional No chills 04/09/2015 Constitutional No diaphoresis 04/09/2015 Constitutional No fatigue 04/09/2015 Constitutional No fever 04/09/2015 Constitutional No insomnia 04/09/2015 Constitutional No malaise 04/09/2015 Constitutional No weight loss 04/09/2015 Constitutional No weight gain 04/09/2015 Eyes No eye discharge 04/09/2015 Eyes No eye erythema 04/09/2015 Ears/Nose/Throat/Neck No dizziness 2014 Ears/Nose/Throat/Neck headache 2014 Cardiovascular No chest pain/pressure Cardiovascular No dyspnea 04/09/2015 Respiratory No cough 04/09/2015 Gastrointestinal No abdominal pain 2014 Gastrointestinal No constipation 2014 Gastrointestinal No diarrhea 04/09/2015 Genitourinary/Nephrology No dysuria 04/09 Musculoskeletal No joint complaint 2014 Dermatologic rash 04/09/2015 Neurologic No alteration of consciousness 04/09/2015 Neurologic seizure 04/09/2015 Endocrine No dry or coarse skin 2014 Constitutional No recent illness 2013 Constitutional No anorexia 05/26/2014 Constitutional No night sweats 2013 Constitutional No chills 05/26/2014 Constitutional No diaphoresis 05/26/2014 Constitutional No fatigue 05/26/2014 Constitutional No fever 05/26/2014 Constitutional No insomnia 05/26/2014 Constitutional No malaise 05/26/2014 Constitutional No weight loss 05/26/2014 Constitutional No weight gain 05/26/2014 Eyes No eye discharge 05/26/2014 Eyes No eye erythema 05/26/2014 Ears/Nose/Throat/Neck No dizziness 2013 Ears/Nose/Throat/Neck No headache 2013 Cardiovascular No chest pain/pressure 09/2014 Respiratory No cough 05/26/2014 Gastrointestinal No abdominal pain 2013 Gastrointestinal No constipation 2013 Gastrointestinal No diarrhea 05/26/2014 Genitourinary/Nephrology No dysuria 05/26 Musculoskeletal No joint complaint 2013 Dermatologic No rash 05/26/2014 Dermatologic No acne rosacea 05/26/2014 Neurologic No alteration of consciousness 05/26/2014 Constitutional No chills 08/07/2013 Constitutional No fever 08/07/2013 Eyes No eye erythema 08/07/2013 Eyes No eye discharge 08/07/2013 Ears/Nose/Throat/Neck No nasal discharge 08/07/2013 Ears/Nose/Throat/Neck facial pain 2012 Ears/Nose/Throat/Neck No otalgia 2012 Ears/Nose/Throat/Neck sinus congestion Ears/Nose/Throat/Neck headache 2012 Ears/Nose/Throat/Neck sore throat 2012 Cardiovascular No chest pain/pressure Respiratory chest tightness 08/07/2013 Respiratory chest congestion 08/07/2013 Respiratory dyspnea 08/07/2013 Gastrointestinal No vomiting 08/07/2013 Gastrointestinal No nausea 08/07/2013 Gastrointestinal No diarrhea 08/07/2013 Gastrointestinal No constipation 2012 Gastrointestinal No abdominal pain 2012 Genitourinary/Nephrology No dysuria 08/07 Dermatologic No rash 08/07/2013 Dermatologic No sores 08/07/2013 Constitutional No recent illness 2012 Constitutional No chills 05/19/2013 Constitutional No fever 05/19/2013 Constitutional No insomnia 05/19/2013 Eyes No vision change 05/19/2013 Cardiovascular No chest pain/pressure 02/2013 Cardiovascular No claudication 2012 Cardiovascular No dyspnea 05/19/2013 Respiratory cough 05/19/2013 Respiratory No dyspnea 05/19/2013 Gastrointestinal No constipation 2012 Gastrointestinal No diarrhea 05/19/2013 Gastrointestinal No gastroesophageal reflux 05/19/2013 Gastrointestinal No nausea 05/19/2013 Genitourinary/Nephrology No urinary urgency 05/19/2013 Genitourinary/Nephrology No urinary frequency 05/19/2013 Musculoskeletal No stiffness 05/19/2013 Musculoskeletal No swelling 05/19/2013 Dermatologic No mole change 05/19/2013 Dermatologic No rash 05/19/2013 Dermatologic No sores 05/19/2013 Ears/Nose/Throat/Neck No dizziness 2012 Ears/Nose/Throat/Neck No nasal allergies 05/19/2013 Ears/Nose/Throat/Neck No nasal discharge 05/19/2013 Ears/Nose/Throat/Neck No sore throat 02/2013 Psychiatric No anxiety 05/19/2013 Psychiatric No depression 05/19/2013 Constitutional No recent illness 2012 Constitutional No chills 11/18/2012 Constitutional No fatigue 11/18/2012 Constitutional No fever 11/18/2012 Constitutional No insomnia 11/18/2012 Constitutional No malaise 11/18/2012 Psychiatric No anxiety 11/18/2012 Psychiatric No depression 11/18/2012 Neurologic dizziness 11/18/2012 Neurologic dyskinesia or tremor 2012 Neurologic seizure 11/18/2012 Cardiovascular No chest pain/pressure 01/2013 Cardiovascular No dyspnea 11/18/2012 Cardiovascular No edema 11/18/2012 Cardiovascular No exercise intolerance Cardiovascular No fatigue 11/18/2012 Cardiovascular No near-syncope/dizziness 11/18/2012 Respiratory No chest tightness 2012 Respiratory No cigarette smoking 2012 Respiratory No cough 11/18/2012 Respiratory No dyspnea 11/18/2012 Respiratory No pedal edema 11/18/2012 Respiratory No snoring 11/18/2012 Respiratory No wheezing 11/18/2012 Gastrointestinal No hemorrhoids 2012 Gastrointestinal No abdominal pain 2012 Gastrointestinal No constipation 2012 Gastrointestinal No diarrhea 11/18/2012 Gastrointestinal No gastroesophageal reflux 11/18/2012 Gastrointestinal No melena 11/18/2012 Gastrointestinal No nausea 11/18/2012 Gastrointestinal No vomiting 11/18/2012 Musculoskeletal No stiffness 11/18/2012 Musculoskeletal No swelling 11/18/2012 Musculoskeletal No muscle weakness 2012 Musculoskeletal No myalgias 11/18/2012 Genitourinary/Nephrology No dysuria 11/18 Genitourinary/Nephrology No nocturia 01/2013 Genitourinary/Nephrology No urinary incontinence 11/18/2012 Dermatologic No rash 11/18/2012 Dermatologic No scar 11/18/2012 Genitourinary/Nephrology No menopausal symptoms 05/20/2012 Genitourinary/Nephrology No menstrual irregularity 05/20/2012 Genitourinary/Nephrology No Pap smear abnormality 05/20/2012 Genitourinary/Nephrology No pelvic pain 05/20/2012 Genitourinary/Nephrology No urinary incontinence 05/20/2012 Genitourinary/Nephrology No vaginal discharge 05/20/2012 Dermatologic No rash 05/20/2012 Constitutional No chills 05/20/2012 Constitutional No fever 05/20/2012 Constitutional No recent illness 2011 Eyes No eye discharge 05/20/2012 Eyes No eye erythema 05/20/2012 Ears/Nose/Throat/Neck No headache 2011 Ears/Nose/Throat/Neck No nasal discharge 05/20/2012 Ears/Nose/Throat/Neck No sore throat 03/2012 Cardiovascular No chest pain/pressure 03/2012 Cardiovascular No dyspnea 05/20/2012 Cardiovascular No fatigue 05/20/2012 Cardiovascular No syncope 05/20/2012 Respiratory No chest congestion 2011 Respiratory No chest tightness 2011 Respiratory No cough 05/20/2012 Respiratory No dyspnea 05/20/2012 Respiratory No dyspnea on exertion 2011 Gastrointestinal No abdominal pain 2011 Gastrointestinal No constipation 2011 Gastrointestinal No diarrhea 05/20/2012 Genitourinary/Nephrology No breast complaint 05/20/2012 Genitourinary/Nephrology No dysuria 05/20 Genitourinary/Nephrology No genital lesion 05/20/2012 Genitourinary/Nephrology No hematuria 03/2012 Constitutional No fever 12/18/2011 Constitutional No chills 12/18/2011 Constitutional No insomnia 12/18/2011 Constitutional No recent illness 2011 Eyes No vision change 12/18/2011 Cardiovascular No chest pain/pressure 02/2012 Cardiovascular No claudication 2011 Cardiovascular No dyspnea 12/18/2011 Respiratory No dyspnea 12/18/2011 Respiratory cough 12/18/2011 Gastrointestinal No constipation 2011 Gastrointestinal No diarrhea 12/18/2011 Gastrointestinal No nausea 12/18/2011 Gastrointestinal No gastroesophageal reflux 12/18/2011 Genitourinary/Nephrology No urinary frequency 12/18/2011 Genitourinary/Nephrology No urinary urgency 12/18/2011 Musculoskeletal No stiffness 12/18/2011 Musculoskeletal No swelling 12/18/2011 Dermatologic No rash 12/18/2011 Dermatologic No sores 12/18/2011 Dermatologic No mole change 12/18/2011 Psychiatric No anxiety 07/10/2011 Psychiatric No depression 07/10/2011 Constitutional No night sweats 2010 Constitutional No chills 07/10/2011 Constitutional No fever 07/10/2011 Eyes No vision change 07/10/2011 Cardiovascular No chest pain/pressure Gastrointestinal No constipation 2010 Gastrointestinal No diarrhea 07/10/2011 Gastrointestinal No nausea 07/10/2011 Gastrointestinal No vomiting 07/10/2011 Constitutional No malaise 07/10/2011 Ears/Nose/Throat/Neck No dizziness 2010 Ears/Nose/Throat/Neck No dysphagia 2010 Respiratory No cough 07/10/2011 Respiratory No chest tightness 2010 Musculoskeletal No swelling 07/10/2011 Musculoskeletal No arthralgia(s) 2010 Dermatologic No rash 07/10/2011 Physical Exam Exam Name System Name Item Name Status Result Effective Dates Notes Full Exam - General 1994 Constitutional general appearance Overall: well developed 09/27/2017 None Full Exam - General 1994 Constitutional general appearance Overall: in no acute distress 09/27/2017 None Full Exam - General 1994 Constitutional general appearance Overall: well nourished 09/27/2017 None Full Exam - General 1994 Eyes pupils and irises Overall: pupils equal, round, reactive to light and accomodation 09/27/2017 None Full Exam - General 1994 Ears/Nose/Throat external ear Overall: normal appearance 09/27/2017 None Full Exam - General 1994 Ears/Nose/Throat external nose Overall: benign appearance 09/27/2017 None Full Exam - General 1994 Ears/Nose/Throat external nose Overall: no masses 09/27/2017 None Full Exam - General 1994 Ears/Nose/Throat external nose Overall: non-tender 09/27/2017 None Full Exam - General 1994 Ears/Nose/Throat otoscopic exam Overall: external auditory canals clear 09/27/2017 None Full Exam - General 1994 Ears/Nose/Throat otoscopic exam Overall: tympanic membranes clear 09/27/2017 None Full Exam - General 1994 Ears/Nose/Throat internal nose Overall: septum midline 09/27/2017 None Full Exam - General 1994 Ears/Nose/Throat internal nose Overall: no sinus tenderness 09/27/2017 None Full Exam - General 1994 Ears/Nose/Throat lips/teeth/gingiva Overall: benign lips 09/27/2017 None Full Exam - General 1994 Ears/Nose/Throat lips/teeth/gingiva Overall: normal dentition 09/27/2017 None Full Exam - General 1994 Ears/Nose/Throat lips/teeth/gingiva Overall: benign gingiva 09/27/2017 None Full Exam - General 1994 Ears/Nose/Throat lips/teeth/gingiva Overall: no masses 09/27/2017 None Full Exam - General 1994 Ears/Nose/Throat oral cavity/pharynx/larynx Overall: oral mucosa clear 09/27/2017 None Full Exam - General 1994 Ears/Nose/Throat oral cavity/pharynx/larynx Overall: oropharyngeal mucosa clear 09/27/2017 None Full Exam - General 1994 Ears/Nose/Throat oral cavity/pharynx/larynx Overall: no masses 09/27/2017 None Full Exam - General 1994 Respiratory palpation of chest Overall: normal excursion, no pain 09/27/2017 None Full Exam - General 1994 Respiratory auscultation Overall: breath sounds clear bilaterally 09/27/2017 None Full Exam - General 1994 Respiratory respiratory effort/rhythm Overall: no retractions 09/27/2017 None Full Exam - General 1994 Respiratory respiratory effort/rhythm Overall: normal rate 09/27/2017 None Full Exam - General 1994 Cardiovascular auscultation of heart Overall: regular rate 09/27/2017 None Full Exam - General 1994 Cardiovascular auscultation of heart Overall: normal heart sounds 09/27/2017 None Full Exam - General 1994 Cardiovascular auscultation of heart Overall: no murmurs 09/27/2017 None Full Exam - General 1994 Abdomen abdominal exam Overall: no tenderness 09/27/2017 None Full Exam - General 1994 Abdomen abdominal exam Overall: normal bowel sounds 09/27/2017 None Full Exam - General 1994 Musculoskeletal spine, ribs and pelvis Overall: spine benign 09/27/2017 None Full Exam - General 1994 Musculoskeletal spine, ribs and pelvis Overall: sacroiliac joint benign 09/27/2017 None Full Exam - General 1994 Musculoskeletal spine, ribs and pelvis Overall: good posture 09/27/2017 None Full Exam - General 1994 Neurologic cranial nerves Overall: crainial nerves 2 - 12 grossly intact 09/27/2017 None Full Exam - General 1994 Psychiatric orientation/consciousness Overall: oriented to person, place and time 09/27/2017 None Full Exam - General 1994 Psychiatric mood and affect Overall: normal mood and affect 09/27/2017 None Full Exam - General 1994 Psychiatric mood and affect Mood: happy 09/27/2017 None Full Exam - General 1994 Integument inspection of skin Location: left foot 09/27/2017 None Full Exam - General 1994 Integument inspection of skin Rash/Lesions: wart 09/27/2017 None Full Exam - Orthopedics Constitutional general appearance Overall: well nourished 06/22/2017 None Full Exam - Orthopedics Constitutional general appearance Overall: well developed 06/22/2017 None Full Exam - Orthopedics Constitutional general appearance Overall: in no acute distress 06/22/2017 None Full Exam - Orthopedics Psychiatric orientation/consciousness Overall: oriented to person, place and time 06/22/2017 None Full Exam - Orthopedics MS: left lower extremity insp & palp - LLE Thigh: tenderness 06/22/2017 over iliotibial band Full Exam - Orthopedics MS: spine/rib/pelvis insp & palp - S/R/P Ribs/trunk inspection: pelvic obliquity 06/22/2017 None Full Exam - Orthopedics Cardiovascular examination of vasculature Overall: no clubbing, cyanosis, edema 06/22/2017 None Full Exam - Orthopedics Respiratory auscultation Overall: breath sounds clear bilaterally 06/22/2017 None Full Exam - Orthopedics Respiratory respiratory effort/rhythm Overall: no retractions 06/22/2017 None Full Exam - Orthopedics Respiratory respiratory effort/rhythm Overall: normal rate 06/22/2017 None Full Exam - Orthopedics Respiratory respiratory effort/rhythm Overall: normal , symmetric chest expansion 06/22/2017 None Full Exam - General 1994 Constitutional general appearance Overall: well nourished 06/11/2017 None Full Exam - General 1994 Constitutional general appearance Overall: well developed 06/11/2017 None Full Exam - General 1994 Constitutional general appearance Overall: in no acute distress 06/11/2017 None Full Exam - General 1994 Eyes pupils and irises Overall: pupils equal, round, reactive to light and accomodation 06/11/2017 None Full Exam - General 1994 Ears/Nose/Throat otoscopic exam Overall: tympanic membranes clear 06/11/2017 None Full Exam - General 1994 Ears/Nose/Throat otoscopic exam Overall: external auditory canals clear 06/11/2017 None Full Exam - General 1994 Ears/Nose/Throat oral cavity/pharynx/larynx Overall: oral mucosa clear 06/11/2017 None Full Exam - General 1994 Ears/Nose/Throat oral cavity/pharynx/larynx Oropharynx: erythema 06/11/2017 along left tonsilar pillar Full Exam - General 1994 Neck inspection of neck Overall: normal appearance 06/11/2017 None Full Exam - General 1994 Neck inspection of neck Overall: normal size 06/11/2017 None Full Exam - General 1994 Respiratory auscultation Overall: breath sounds clear bilaterally 06/11/2017 None Full Exam - General 1994 Respiratory respiratory effort/rhythm Overall: normal rate 06/11/2017 None Full Exam - General 1994 Respiratory respiratory effort/rhythm Overall: no retractions 06/11/2017 None Full Exam - General 1994 Cardiovascular auscultation of heart Overall: regular rate 06/11/2017 None Full Exam - General 1994 Cardiovascular auscultation of heart Overall: normal heart sounds 06/11/2017 None Full Exam - General 1994 Cardiovascular auscultation of heart Overall: no murmurs 06/11/2017 None Full Exam - General 1994 Cardiovascular extremities Overall: no clubbing 06/11/2017 None Full Exam - General 1994 Lymphatic neck nodes Overall: shotty lymphadenopathy 06/11/2017 worse on left than right Full Exam - General 1994 Psychiatric orientation/consciousness Overall: oriented to person, place and time 06/11/2017 None Full Exam - General 1994 Psychiatric mood and affect Mood: happy 06/11/2017 None Full Exam - General 1994 Psychiatric mood and affect Overall: normal mood and affect 06/11/2017 None Full Exam - General 1994 Constitutional general appearance Overall: well developed 04/11/2017 None Full Exam - General 1994 Constitutional general appearance Overall: in no acute distress 04/11/2017 None Full Exam - General 1994 Constitutional general appearance Overall: well nourished 04/11/2017 None Full Exam - General 1994 Eyes pupils and irises Overall: pupils equal, round, reactive to light and accomodation 04/11/2017 None Full Exam - General 1994 Ears/Nose/Throat external ear Overall: normal appearance 04/11/2017 None Full Exam - General 1994 Ears/Nose/Throat external nose Overall: benign appearance 04/11/2017 None Full Exam - General 1994 Ears/Nose/Throat external nose Overall: no masses 04/11/2017 None Full Exam - General 1994 Ears/Nose/Throat external nose Overall: non-tender 04/11/2017 None Full Exam - General 1994 Ears/Nose/Throat otoscopic exam Overall: external auditory canals clear 04/11/2017 None Full Exam - General 1994 Ears/Nose/Throat otoscopic exam Overall: tympanic membranes clear 04/11/2017 None Full Exam - General 1994 Ears/Nose/Throat internal nose Overall: septum midline 04/11/2017 None Full Exam - General 1994 Ears/Nose/Throat internal nose Overall: no sinus tenderness 04/11/2017 None Full Exam - General 1994 Ears/Nose/Throat internal nose Turbinates: erythema 04/11/2017 None Full Exam - General 1994 Ears/Nose/Throat internal nose Nasal cavity: mucosal edema 04/11/2017 None Full Exam - General 1994 Ears/Nose/Throat lips/teeth/gingiva Overall: benign lips 04/11/2017 None Full Exam - General 1994 Ears/Nose/Throat lips/teeth/gingiva Overall: normal dentition 04/11/2017 None Full Exam - General 1994 Ears/Nose/Throat lips/teeth/gingiva Overall: benign gingiva 04/11/2017 None Full Exam - General 1994 Ears/Nose/Throat lips/teeth/gingiva Overall: no masses 04/11/2017 None Full Exam - General 1994 Ears/Nose/Throat oral cavity/pharynx/larynx Overall: oral mucosa clear 04/11/2017 None Full Exam - General 1994 Ears/Nose/Throat oral cavity/pharynx/larynx Overall: oropharyngeal mucosa clear 04/11/2017 None Full Exam - General 1994 Ears/Nose/Throat oral cavity/pharynx/larynx Overall: no masses 04/11/2017 None Full Exam - General 1994 Respiratory palpation of chest Overall: normal excursion, no pain 04/11/2017 None Full Exam - General 1994 Respiratory auscultation Overall: breath sounds clear bilaterally 04/11/2017 None Full Exam - General 1994 Respiratory respiratory effort/rhythm Overall: no retractions 04/11/2017 None Full Exam - General 1994 Respiratory respiratory effort/rhythm Overall: normal rate 04/11/2017 None Full Exam - General 1994 Cardiovascular auscultation of heart Overall: regular rate 04/11/2017 None Full Exam - General 1994 Cardiovascular auscultation of heart Overall: normal heart sounds 04/11/2017 None Full Exam - General 1994 Cardiovascular auscultation of heart Overall: no murmurs 04/11/2017 None Full Exam - General 1994 Abdomen abdominal exam Overall: no tenderness 04/11/2017 None Full Exam - General 1994 Abdomen abdominal exam Overall: normal bowel sounds 04/11/2017 None Full Exam - General 1994 Musculoskeletal spine, ribs and pelvis Overall: spine benign 04/11/2017 None Full Exam - General 1994 Musculoskeletal spine, ribs and pelvis Overall: sacroiliac joint benign 04/11/2017 None Full Exam - General 1994 Musculoskeletal spine, ribs and pelvis Overall: good posture 04/11/2017 None Full Exam - General 1994 Neurologic cranial nerves Overall: crainial nerves 2 - 12 grossly intact 04/11/2017 None Full Exam - General 1994 Psychiatric orientation/consciousness Overall: oriented to person, place and time 04/11/2017 None Full Exam - General 1994 Psychiatric mood and affect Overall: normal mood and affect 04/11/2017 None Full Exam - General 1994 Psychiatric mood and affect Mood: happy 04/11/2017 None Full Exam - General 1994 Constitutional general appearance Overall: well developed 04/10/2016 None Full Exam - General 1994 Constitutional general appearance Overall: in no acute distress 04/10/2016 None Full Exam - General 1994 Constitutional general appearance Overall: well nourished 04/10/2016 None Full Exam - General 1994 Eyes pupils and irises Overall: pupils equal, round, reactive to light and accomodation 04/10/2016 None Full Exam - General 1994 Ears/Nose/Throat external ear Overall: normal appearance 04/10/2016 None Full Exam - General 1994 Ears/Nose/Throat external nose Overall: benign appearance 04/10/2016 None Full Exam - General 1994 Ears/Nose/Throat external nose Overall: no masses 04/10/2016 None Full Exam - General 1994 Ears/Nose/Throat external nose Overall: non-tender 04/10/2016 None Full Exam - General 1994 Ears/Nose/Throat otoscopic exam Overall: external auditory canals clear 04/10/2016 None Full Exam - General 1994 Ears/Nose/Throat otoscopic exam Overall: tympanic membranes clear 04/10/2016 None Full Exam - General 1994 Ears/Nose/Throat internal nose Overall: septum midline 04/10/2016 None Full Exam - General 1994 Ears/Nose/Throat internal nose Overall: no sinus tenderness 04/10/2016 None Full Exam - General 1994 Ears/Nose/Throat internal nose Turbinates: erythema 04/10/2016 None Full Exam - General 1994 Ears/Nose/Throat internal nose Nasal cavity: mucosal edema 04/10/2016 None Full Exam - General 1994 Ears/Nose/Throat lips/teeth/gingiva Overall: benign lips 04/10/2016 None Full Exam - General 1994 Ears/Nose/Throat lips/teeth/gingiva Overall: normal dentition 04/10/2016 None Full Exam - General 1994 Ears/Nose/Throat lips/teeth/gingiva Overall: benign gingiva 04/10/2016 None Full Exam - General 1994 Ears/Nose/Throat lips/teeth/gingiva Overall: no masses 04/10/2016 None Full Exam - General 1994 Ears/Nose/Throat oral cavity/pharynx/larynx Overall: oral mucosa clear 04/10/2016 None Full Exam - General 1994 Ears/Nose/Throat oral cavity/pharynx/larynx Overall: oropharyngeal mucosa clear 04/10/2016 None Full Exam - General 1994 Ears/Nose/Throat oral cavity/pharynx/larynx Overall: no masses 04/10/2016 None Full Exam - General 1994 Neck inspection of neck Overall: normal size 04/10/2016 None Full Exam - General 1994 Neck inspection of neck Overall: normal appearance 04/10/2016 None Full Exam - General 1994 Neck inspection of neck Overall: no masses 04/10/2016 None Full Exam - General 1994 Neck inspection of neck Overall: absence of swelling 04/10/2016 None Full Exam - General 1994 Respiratory palpation of chest Overall: normal excursion, no pain 04/10/2016 None Full Exam - General 1994 Respiratory auscultation Overall: breath sounds clear bilaterally 04/10/2016 None Full Exam - General 1994 Respiratory respiratory effort/rhythm Overall: no retractions 04/10/2016 None Full Exam - General 1994 Respiratory respiratory effort/rhythm Overall: normal rate 04/10/2016 None Full Exam - General 1994 Cardiovascular auscultation of heart Overall: regular rate 04/10/2016 None Full Exam - General 1994 Cardiovascular auscultation of heart Overall: normal heart sounds 04/10/2016 None Full Exam - General 1994 Cardiovascular auscultation of heart Overall: no murmurs 04/10/2016 None Full Exam - General 1994 Abdomen abdominal exam Overall: no tenderness 04/10/2016 None Full Exam - General 1994 Abdomen abdominal exam Overall: normal bowel sounds 04/10/2016 None Full Exam - General 1994 Musculoskeletal spine, ribs and pelvis Overall: spine benign 04/10/2016 None Full Exam - General 1994 Musculoskeletal spine, ribs and pelvis Overall: sacroiliac joint benign 04/10/2016 None Full Exam - General 1994 Musculoskeletal spine, ribs and pelvis Overall: good posture 04/10/2016 None Full Exam - General 1994 Neurologic cranial nerves Overall: crainial nerves 2 - 12 grossly intact 04/10/2016 None Full Exam - General 1994 Psychiatric orientation/consciousness Overall: oriented to person, place and time 04/10/2016 None Full Exam - General 1994 Psychiatric mood and affect Overall: normal mood and affect 04/10/2016 None Full Exam - General 1994 Psychiatric mood and affect Mood: happy 04/10/2016 None Full Exam - Genitourinary/Female Constitutional general appearance Overall: well nourished 04/09/2015 None Full Exam - Genitourinary/Female Constitutional general appearance Overall: well developed 04/09/2015 None Full Exam - Genitourinary/Female Constitutional general appearance Overall: in no acute distress 04/09/2015 None Full Exam - Genitourinary/Female Eyes conjunctiva/eyelids Overall: conjunctiva clear 04/09/2015 None Full Exam - Genitourinary/Female Eyes pupils and irises Overall: pupils equal, round, reactive to light and accomodation 04/09/2015 None Full Exam - Genitourinary/Female Ears/Nose/Throat otoscopic exam Overall: external auditory canals clear 04/09/2015 None Full Exam - Genitourinary/Female Ears/Nose/Throat otoscopic exam Overall: tympanic membranes clear 04/09/2015 None Full Exam - Genitourinary/Female Ears/Nose/Throat oral cavity/pharynx/larynx Overall: oral mucosa clear 04/09/2015 None Full Exam - Genitourinary/Female Neck thyroid Overall: normal size 04/09/2015 None Full Exam - Genitourinary/Female Neck thyroid Overall: normal consistency 04/09/2015 None Full Exam - Genitourinary/Female Neck inspection of neck Overall: normal size 04/09/2015 None Full Exam - Genitourinary/Female Respiratory auscultation Overall: breath sounds clear bilaterally 04/09/2015 None Full Exam - Genitourinary/Female Respiratory respiratory effort/rhythm Overall: no retractions 04/09/2015 None Full Exam - Genitourinary/Female Respiratory respiratory effort/rhythm Overall: normal rate 04/09/2015 None Full Exam - Genitourinary/Female Cardiovascular auscultation of heart Overall: regular rate 04/09/2015 None Full Exam - Genitourinary/Female Cardiovascular auscultation of heart Overall: normal heart sounds 04/09/2015 None Full Exam - Genitourinary/Female Cardiovascular auscultation of heart Overall: no murmurs 04/09/2015 None Full Exam - Genitourinary/Female Chest/Breast breast inspection and palpation Overall: normal chest shape 04/09/2015 None Full Exam - Genitourinary/Female Abdomen abdominal exam Overall: non tender, non distended 04/09/2015 None Full Exam - Genitourinary/Female Abdomen abdominal exam Overall: normal bowel sounds 04/09/2015 None Full Exam - Genitourinary/Female Abdomen abdominal exam Overall: no mass lesions 04/09/2015 None Full Exam - Genitourinary/Female Genitourinary breast inspection & palpation Overall: breasts symmetric and without lesions 04/09/2015 None Full Exam - Genitourinary/Female Genitourinary breast inspection & palpation Overall: breasts non-tender, no mass lesions 04/09/2015 None Full Exam - Genitourinary/Female Genitourinary breast inspection & palpation Overall: no nipple discharge 04/09/2015 None Full Exam - Genitourinary/Female Genitourinary external genitalia Overall: normal hair distribution 04/09/2015 None Full Exam - Genitourinary/Female Genitourinary external genitalia Overall: no discharge 04/09/2015 None Full Exam - Genitourinary/Female Genitourinary external genitalia Overall: no lesions 04/09/2015 None Full Exam - Genitourinary/Female Genitourinary bladder Overall: no tenderness 04/09/2015 None Full Exam - Genitourinary/Female Genitourinary bladder Overall: no mass lesions 04/09/2015 None Full Exam - Genitourinary/Female Genitourinary vagina Overall: no discharge 04/09/2015 None Full Exam - Genitourinary/Female Genitourinary vagina Overall: no lesions 04/09/2015 None Full Exam - Genitourinary/Female Genitourinary vagina Overall: normal tone 04/09/2015 None Full Exam - Genitourinary/Female Genitourinary vagina Overall: normal pelvic support 04/09/2015 None Full Exam - Genitourinary/Female Genitourinary vagina Introitus: normal appearance 04/09/2015 None Full Exam - Genitourinary/Female Genitourinary cervix Inspection: normal os 04/09/2015 None Full Exam - Genitourinary/Female Genitourinary uterus Overall: normal size 04/09/2015 None Full Exam - Genitourinary/Female Genitourinary uterus Overall: normal contour 04/09/2015 None Full Exam - Genitourinary/Female Genitourinary uterus Overall: normal shape 04/09/2015 None Full Exam - Genitourinary/Female Genitourinary uterus Overall: normal mobility 04/09/2015 None Full Exam - Genitourinary/Female Genitourinary uterus Overall: non tender 04/09/2015 None Full Exam - Genitourinary/Female Genitourinary uterus Overall: no mass 04/09/2015 None Full Exam - Genitourinary/Female Lymphatic inspection and palpation of nodes Overall: anterior cervical chain benign 04/09/2015 None Full Exam - Genitourinary/Female Lymphatic inspection and palpation of nodes Overall: posterior cervical chain benign 04/09/2015 None Full Exam - Genitourinary/Female Musculoskeletal head and neck Overall: head atraumatic 04/09/2015 None Full Exam - Genitourinary/Female Integument inspection and palpation of skin Overall: no rash, lesions 04/09/2015 None Full Exam - Genitourinary/Female Integument inspection and palpation of skin Overall: no induration, no tenderness 04/09/2015 None Full Exam - Genitourinary/Female Neurologic mood and affect Overall: normal mood 04/09/2015 None Full Exam - Genitourinary/Female Neurologic mood and affect Overall: normal affect 04/09/2015 None Full Exam - Genitourinary/Female Psychiatric orientation/consciousness Overall: oriented to person, place and time 04/09/2015 None Full Exam - General 1994 Constitutional general appearance Overall: well developed 05/26/2014 None Full Exam - General 1994 Constitutional general appearance Overall: in no acute distress 05/26/2014 None Full Exam - General 1994 Constitutional general appearance Overall: well nourished 05/26/2014 None Full Exam - General 1994 Eyes pupils and irises Overall: pupils equal, round, reactive to light and accomodation 05/26/2014 None Full Exam - General 1994 Ears/Nose/Throat external ear Overall: normal appearance 05/26/2014 None Full Exam - General 1994 Ears/Nose/Throat external nose Overall: benign appearance 05/26/2014 None Full Exam - General 1994 Ears/Nose/Throat external nose Overall: no masses 05/26/2014 None Full Exam - General 1994 Ears/Nose/Throat external nose Overall: non-tender 05/26/2014 None Full Exam - General 1994 Ears/Nose/Throat otoscopic exam Overall: external auditory canals clear 05/26/2014 None Full Exam - General 1994 Ears/Nose/Throat otoscopic exam Overall: tympanic membranes clear 05/26/2014 None Full Exam - General 1994 Ears/Nose/Throat internal nose Overall: septum midline 05/26/2014 None Full Exam - General 1994 Ears/Nose/Throat internal nose Overall: no sinus tenderness 05/26/2014 None Full Exam - General 1994 Ears/Nose/Throat lips/teeth/gingiva Overall: benign lips 05/26/2014 None Full Exam - General 1994 Ears/Nose/Throat lips/teeth/gingiva Overall: normal dentition 05/26/2014 None Full Exam - General 1994 Ears/Nose/Throat lips/teeth/gingiva Overall: benign gingiva 05/26/2014 None Full Exam - General 1994 Ears/Nose/Throat lips/teeth/gingiva Overall: no masses 05/26/2014 None Full Exam - General 1994 Ears/Nose/Throat oral cavity/pharynx/larynx Overall: oral mucosa clear 05/26/2014 None Full Exam - General 1994 Ears/Nose/Throat oral cavity/pharynx/larynx Overall: oropharyngeal mucosa clear 05/26/2014 None Full Exam - General 1994 Ears/Nose/Throat oral cavity/pharynx/larynx Overall: no masses 05/26/2014 None Full Exam - General 1994 Neck inspection of neck Overall: normal size 05/26/2014 None Full Exam - General 1994 Neck inspection of neck Overall: normal appearance 05/26/2014 None Full Exam - General 1994 Neck inspection of neck Overall: no masses 05/26/2014 None Full Exam - General 1994 Neck inspection of neck Overall: absence of swelling 05/26/2014 None Full Exam - General 1994 Respiratory palpation of chest Overall: normal excursion, no pain 05/26/2014 None Full Exam - General 1994 Respiratory auscultation Overall: breath sounds clear bilaterally 05/26/2014 None Full Exam - General 1994 Respiratory respiratory effort/rhythm Overall: no retractions 05/26/2014 None Full Exam - General 1994 Respiratory respiratory effort/rhythm Overall: normal rate 05/26/2014 None Full Exam - General 1994 Cardiovascular auscultation of heart Overall: regular rate 05/26/2014 None Full Exam - General 1994 Cardiovascular auscultation of heart Overall: normal heart sounds 05/26/2014 None Full Exam - General 1994 Cardiovascular auscultation of heart Overall: no murmurs 05/26/2014 None Full Exam - General 1994 Abdomen abdominal exam Overall: no tenderness 05/26/2014 None Full Exam - General 1994 Abdomen abdominal exam Overall: normal bowel sounds 05/26/2014 None Full Exam - General 1994 Musculoskeletal spine, ribs and pelvis Overall: spine benign 05/26/2014 None Full Exam - General 1994 Musculoskeletal spine, ribs and pelvis Overall: sacroiliac joint benign 05/26/2014 None Full Exam - General 1994 Musculoskeletal spine, ribs and pelvis Overall: good posture 05/26/2014 None Full Exam - General 1994 Neurologic cranial nerves Overall: crainial nerves 2 - 12 grossly intact 05/26/2014 None Full Exam - General 1994 Psychiatric orientation/consciousness Overall: oriented to person, place and time 05/26/2014 None Full Exam - General 1994 Psychiatric mood and affect Overall: normal mood and affect 05/26/2014 None Full Exam - General 1994 Psychiatric mood and affect Mood: happy 05/26/2014 None Full Exam - General 1994 Constitutional general appearance Overall: well nourished 08/07/2013 None Full Exam - General 1994 Constitutional general appearance Overall: well developed 08/07/2013 None Full Exam - General 1994 Constitutional general appearance Overall: in no acute distress 08/07/2013 None Full Exam - General 1994 Eyes pupils and irises Overall: pupils equal, round, reactive to light and accomodation 08/07/2013 None Full Exam - General 1994 Eyes conjunctiva /eyelids Overall: conjunctiva clear 08/07/2013 None Full Exam - General 1994 Eyes conjunctiva /eyelids Overall: eyelids normal 08/07/2013 None Full Exam - General 1994 Eyes conjunctiva /eyelids Overall: cornea clear 08/07/2013 None Full Exam - General 1994 Ears/Nose/Throat oral cavity/pharynx/larynx Overall: no masses 08/07/2013 None Full Exam - General 1995 Ears/Nose/Throat oral cavity/pharynx/larynx Overall: oral mucosa clear 08/07/2013 None Full Exam - General 1994 Ears/Nose/Throat otoscopic exam Overall: tympanic membranes clear 08/07/2013 None Full Exam - General 1995 Ears/Nose/Throat otoscopic exam Overall: external auditory canals clear 08/07/2013 None Full Exam - General 1994 Ears/Nose/Throat oral cavity/pharynx/larynx Posterior Pharynx: clear post nasal drainage 08/07/2013 None Full Exam - General 1995 Ears/Nose/Throat oral cavity/pharynx/larynx Oropharynx: erythema 08/07/2013 None Full Exam - General 1994 Respiratory respiratory effort/rhythm Overall: normal rate 08/07/2013 None Full Exam - General 1994 Respiratory respiratory effort/rhythm Overall: no retractions 08/07/2013 None Full Exam - General 1994 Respiratory auscultation Overall: breath sounds clear bilaterally 08/07/2013 None Full Exam - General 1994 Cardiovascular auscultation of heart Overall: regular rate 08/07/2013 None Full Exam - General 1994 Cardiovascular auscultation of heart Overall: normal heart sounds 08/07/2013 None Full Exam - General 1994 Cardiovascular auscultation of heart Overall: no murmurs 08/07/2013 None Full Exam - General 1994 Abdomen abdominal exam Overall: no tenderness 08/07/2013 None Full Exam - General 1994 Abdomen abdominal exam Overall: normal bowel sounds 08/07/2013 None Full Exam - General 1994 Psychiatric orientation/consciousness Overall: oriented to person, place and time 08/07/2013 None Full Exam - General 1994 Lymphatic neck nodes Overall: anterior cervical chain benign 08/07/2013 None Full Exam - General 1994 Lymphatic neck nodes Overall: posterior cervical chain benign 08/07/2013 None Full Exam - General 1994 Constitutional general appearance Overall: well developed 05/19/2013 None Full Exam - General 1994 Constitutional general appearance Overall: in no acute distress 05/19/2013 None Full Exam - General 1994 Constitutional general appearance Overall: well nourished 05/19/2013 None Full Exam - General 1994 Ears/Nose/Throat external ear Overall: normal appearance 05/19/2013 None Full Exam - General 1994 Ears/Nose/Throat external nose Overall: benign appearance 05/19/2013 None Full Exam - General 1994 Ears/Nose/Throat external nose Overall: no masses 05/19/2013 None Full Exam - General 1994 Ears/Nose/Throat external nose Overall: non-tender 05/19/2013 None Full Exam - General 1994 Ears/Nose/Throat otoscopic exam Overall: external auditory canals clear 05/19/2013 None Full Exam - General 1995 Ears/Nose/Throat otoscopic exam Overall: tympanic membranes clear 05/19/2013 None Full Exam - General 1994 Ears/Nose/Throat internal nose Overall: septum midline 05/19/2013 None Full Exam - General 1994 Ears/Nose/Throat internal nose Overall: no sinus tenderness 05/19/2013 None Full Exam - General 1994 Ears/Nose/Throat internal nose Turbinates: erythema 05/19/2013 None Full Exam - General 1994 Ears/Nose/Throat internal nose Nasal cavity: mucosal edema 05/19/2013 None Full Exam - General 1995 Ears/Nose/Throat lips/teeth/gingiva Overall: benign lips 05/19/2013 None Full Exam - General 1995 Ears/Nose/Throat lips/teeth/gingiva Overall: normal dentition 05/19/2013 None Full Exam - General 1995 Ears/Nose/Throat lips/teeth/gingiva Overall: benign gingiva 05/19/2013 None Full Exam - General 1995 Ears/Nose/Throat lips/teeth/gingiva Overall: no masses 05/19/2013 None Full Exam - General 1995 Ears/Nose/Throat oral cavity/pharynx/larynx Overall: oral mucosa clear 05/19/2013 None Full Exam - General 1995 Ears/Nose/Throat oral cavity/pharynx/larynx Overall: oropharyngeal mucosa clear 05/19/2013 None Full Exam - General 1995 Ears/Nose/Throat oral cavity/pharynx/larynx Overall: no masses 05/19/2013 None Full Exam - General 1995 Neck inspection of neck Overall: normal size 05/19/2013 None Full Exam - General 1994 Neck inspection of neck Overall: normal appearance 05/19/2013 None Full Exam - General 1994 Neck inspection of neck Overall: no masses 05/19/2013 None Full Exam - General 1994 Neck inspection of neck Overall: absence of swelling 05/19/2013 None Full Exam - General 1994 Respiratory palpation of chest Overall: normal excursion, no pain 05/19/2013 None Full Exam - General 1994 Respiratory auscultation Overall: breath sounds clear bilaterally 05/19/2013 None Full Exam - General 1994 Respiratory respiratory effort/rhythm Overall: no retractions 05/19/2013 None Full Exam - General 1994 Respiratory respiratory effort/rhythm Overall: normal rate 05/19/2013 None Full Exam - General 1994 Cardiovascular auscultation of heart Overall: regular rate 05/19/2013 None Full Exam - General 1994 Cardiovascular auscultation of heart Overall: normal heart sounds 05/19/2013 None Full Exam - General 1994 Cardiovascular auscultation of heart Overall: no murmurs 05/19/2013 None Full Exam - General 1994 Abdomen abdominal exam Overall: no tenderness 05/19/2013 None Full Exam - General 1994 Abdomen abdominal exam Overall: normal bowel sounds 05/19/2013 None Full Exam - General 1994 Neurologic cranial nerves Overall: crainial nerves 2 - 12 grossly intact 05/19/2013 None Full Exam - General 1994 Psychiatric orientation/consciousness Overall: oriented to person, place and time 05/19/2013 None Full Exam - General 1994 Psychiatric mood and affect Overall: normal mood and affect 05/19/2013 None Full Exam - General 1994 Psychiatric mood and affect Mood: happy 05/19/2013 None Full Exam - General 1994 Eyes pupils and irises Overall: pupils equal, round, reactive to light and accomodation 05/19/2013 None Full Exam - General 1994 Musculoskeletal spine, ribs and pelvis Overall: good posture 05/19/2013 None Full Exam - General 1994 Musculoskeletal spine, ribs and pelvis Overall: sacroiliac joint benign 05/19/2013 None Full Exam - General 1995 Musculoskeletal spine, ribs and pelvis Overall: spine benign 05/19/2013 None Full Exam - General 1994 Constitutional general appearance Overall: well developed 11/18/2012 None Full Exam - General 1994 Constitutional general appearance Overall: in no acute distress 11/18/2012 None Full Exam - General 1994 Constitutional general appearance Overall: well nourished 11/18/2012 None Full Exam - General 1994 Ears/Nose/Throat external ear Overall: normal appearance 11/18/2012 None Full Exam - General 1994 Ears/Nose/Throat external nose Overall: benign appearance 11/18/2012 None Full Exam - General 1994 Ears/Nose/Throat external nose Overall: no masses 11/18/2012 None Full Exam - General 1994 Ears/Nose/Throat external nose Overall: non-tender 11/18/2012 None Full Exam - General 1994 Ears/Nose/Throat otoscopic exam Overall: external auditory canals clear 11/18/2012 None Full Exam - General 1994 Ears/Nose/Throat otoscopic exam Overall: tympanic membranes clear 11/18/2012 None Full Exam - General 1994 Ears/Nose/Throat internal nose Overall: septum midline 11/18/2012 None Full Exam - General 1994 Ears/Nose/Throat internal nose Overall: no sinus tenderness 11/18/2012 None Full Exam - General 1994 Ears/Nose/Throat internal nose Nasal cavity: mucosal edema 11/18/2012 None Full Exam - General 1994 Ears/Nose/Throat lips/teeth/gingiva Overall: benign lips 11/18/2012 None Full Exam - General 1995 Ears/Nose/Throat lips/teeth/gingiva Overall: normal dentition 11/18/2012 None Full Exam - General 1995 Ears/Nose/Throat lips/teeth/gingiva Overall: benign gingiva 11/18/2012 None Full Exam - General 1995 Ears/Nose/Throat lips/teeth/gingiva Overall: no masses 11/18/2012 None Full Exam - General 1995 Ears/Nose/Throat oral cavity/pharynx/larynx Overall: oral mucosa clear 11/18/2012 None Full Exam - General 1995 Ears/Nose/Throat oral cavity/pharynx/larynx Overall: oropharyngeal mucosa clear 11/18/2012 None Full Exam - General 1994 Ears/Nose/Throat oral cavity/pharynx/larynx Overall: no masses 11/18/2012 None Full Exam - General 1994 Neck inspection of neck Overall: normal size 11/18/2012 None Full Exam - General 1995 Neck inspection of neck Overall: normal appearance 11/18/2012 None Full Exam - General 1994 Neck inspection of neck Overall: no masses 11/18/2012 None Full Exam - General 1994 Neck inspection of neck Overall: absence of swelling 11/18/2012 None Full Exam - General 1994 Respiratory palpation of chest Overall: normal excursion, no pain 11/18/2012 None Full Exam - General 1994 Respiratory auscultation Overall: breath sounds clear bilaterally 11/18/2012 None Full Exam - General 1994 Respiratory respiratory effort/rhythm Overall: no retractions 11/18/2012 None Full Exam - General 1994 Respiratory respiratory effort/rhythm Overall: normal rate 11/18/2012 None Full Exam - General 1994 Cardiovascular auscultation of heart Overall: regular rate 11/18/2012 None Full Exam - General 1994 Cardiovascular auscultation of heart Overall: normal heart sounds 11/18/2012 None Full Exam - General 1994 Cardiovascular auscultation of heart Overall: no murmurs 11/18/2012 None Full Exam - General 1994 Abdomen abdominal exam Overall: no tenderness 11/18/2012 None Full Exam - General 1994 Abdomen abdominal exam Overall: normal bowel sounds 11/18/2012 None Full Exam - General 1994 Neurologic cranial nerves Overall: crainial nerves 2 - 12 grossly intact 11/18/2012 None Full Exam - General 1994 Psychiatric orientation/consciousness Overall: oriented to person, place and time 11/18/2012 None Full Exam - General 1994 Psychiatric mood and affect Overall: normal mood and affect 11/18/2012 None Full Exam - General 1994 Psychiatric mood and affect Mood: happy 11/18/2012 None Full Exam - Genitourinary/Female Genitourinary breast inspection & palpation Overall: breasts symmetric and without lesions 05/20/2012 None Full Exam - Genitourinary/Female Genitourinary breast inspection & palpation Overall: breasts non-tender, no mass lesions 05/20/2012 None Full Exam - Genitourinary/Female Genitourinary breast inspection & palpation Overall: no nipple discharge 05/20/2012 None Full Exam - Genitourinary/Female Genitourinary external genitalia Overall: normal hair distribution 05/20/2012 None Full Exam - Genitourinary/Female Genitourinary external genitalia Overall: no discharge 05/20/2012 None Full Exam - Genitourinary/Female Genitourinary external genitalia Overall: no lesions 05/20/2012 None Full Exam - Genitourinary/Female Genitourinary bladder Overall: no tenderness 05/20/2012 None Full Exam - Genitourinary/Female Genitourinary bladder Overall: no mass lesions 05/20/2012 None Full Exam - Genitourinary/Female Genitourinary vagina Overall: no discharge 05/20/2012 None Full Exam - Genitourinary/Female Genitourinary vagina Overall: no lesions 05/20/2012 None Full Exam - Genitourinary/Female Genitourinary vagina Overall: normal tone 05/20/2012 None Full Exam - Genitourinary/Female Genitourinary vagina Overall: normal pelvic support 05/20/2012 None Full Exam - Genitourinary/Female Genitourinary vagina Introitus: normal appearance 05/20/2012 None Full Exam - Genitourinary/Female Genitourinary cervix Inspection: normal os 05/20/2012 None Full Exam - Genitourinary/Female Constitutional general appearance Overall: well nourished 05/20/2012 None Full Exam - Genitourinary/Female Constitutional general appearance Overall: well developed 05/20/2012 None Full Exam - Genitourinary/Female Cardiovascular auscultation of heart Overall: no murmurs 05/20/2012 None Full Exam - Genitourinary/Female Chest/Breast breast inspection and palpation Overall: normal chest shape 05/20/2012 None Full Exam - Genitourinary/Female Abdomen abdominal exam Overall: non tender, non distended 05/20/2012 None Full Exam - Genitourinary/Female Abdomen abdominal exam Overall: normal bowel sounds 05/20/2012 None Full Exam - Genitourinary/Female Abdomen abdominal exam Overall: no mass lesions 05/20/2012 None Full Exam - Genitourinary/Female Genitourinary uterus Overall: normal size 05/20/2012 None Full Exam - Genitourinary/Female Genitourinary uterus Overall: normal contour 05/20/2012 None Full Exam - Genitourinary/Female Genitourinary uterus Overall: normal shape 05/20/2012 None Full Exam - Genitourinary/Female Genitourinary uterus Overall: normal mobility 05/20/2012 None Full Exam - Genitourinary/Female Genitourinary uterus Overall: non tender 05/20/2012 None Full Exam - Genitourinary/Female Genitourinary uterus Overall: no mass 05/20/2012 None Full Exam - Genitourinary/Female Lymphatic inspection and palpation of nodes Overall: anterior cervical chain benign 05/20/2012 None Full Exam - Genitourinary/Female Lymphatic inspection and palpation of nodes Overall: posterior cervical chain benign 05/20/2012 None Full Exam - Genitourinary/Female Musculoskeletal head and neck Overall: head atraumatic 05/20/2012 None Full Exam - Genitourinary/Female Integument inspection and palpation of skin Overall: no rash, lesions 05/20/2012 None Full Exam - Genitourinary/Female Integument inspection and palpation of skin Overall: no induration, no tenderness 05/20/2012 None Full Exam - Genitourinary/Female Neurologic mood and affect Overall: normal mood 05/20/2012 None Full Exam - Genitourinary/Female Neurologic mood and affect Overall: normal affect 05/20/2012 None Full Exam - Genitourinary/Female Psychiatric orientation/consciousness Overall: oriented to person, place and time 05/20/2012 None Full Exam - Genitourinary/Female Constitutional general appearance Overall: in no acute distress 05/20/2012 None Full Exam - Genitourinary/Female Eyes conjunctiva/eyelids Overall: conjunctiva clear 05/20/2012 None Full Exam - Genitourinary/Female Eyes pupils and irises Overall: pupils equal, round, reactive to light and accomodation 05/20/2012 None Full Exam - Genitourinary/Female Ears/Nose/Throat otoscopic exam Overall: external auditory canals clear 05/20/2012 None Full Exam - Genitourinary/Female Ears/Nose/Throat otoscopic exam Overall: tympanic membranes clear 05/20/2012 None Full Exam - Genitourinary/Female Ears/Nose/Throat oral cavity/pharynx/larynx Overall: oral mucosa clear 05/20/2012 None Full Exam - Genitourinary/Female Neck thyroid Overall: normal size 05/20/2012 None Full Exam - Genitourinary/Female Neck thyroid Overall: normal consistency 05/20/2012 None Full Exam - Genitourinary/Female Neck inspection of neck Overall: normal size 05/20/2012 None Full Exam - Genitourinary/Female Respiratory auscultation Overall: breath sounds clear bilaterally 05/20/2012 None Full Exam - Genitourinary/Female Respiratory respiratory effort/rhythm Overall: no retractions 05/20/2012 None Full Exam - Genitourinary/Female Respiratory respiratory effort/rhythm Overall: normal rate 05/20/2012 None Full Exam - Genitourinary/Female Cardiovascular auscultation of heart Overall: regular rate 05/20/2012 None Full Exam - Genitourinary/Female Cardiovascular auscultation of heart Overall: normal heart sounds 05/20/2012 None Full Exam - General 1994 Constitutional general appearance Overall: well nourished 12/18/2011 None Full Exam - General 1994 Constitutional general appearance Overall: well developed 12/18/2011 None Full Exam - General 1994 Constitutional general appearance Overall: in no acute distress 12/18/2011 None Full Exam - General 1994 Ears/Nose/Throat external ear Overall: normal appearance 12/18/2011 None Full Exam - General 1994 Ears/Nose/Throat external nose Overall: benign appearance 12/18/2011 None Full Exam - General 1994 Ears/Nose/Throat external nose Overall: non-tender 12/18/2011 None Full Exam - General 1994 Ears/Nose/Throat external nose Overall: no masses 12/18/2011 None Full Exam - General 1994 Ears/Nose/Throat otoscopic exam Overall: tympanic membranes clear 12/18/2011 None Full Exam - General 1994 Ears/Nose/Throat otoscopic exam Overall: external auditory canals clear 12/18/2011 None Full Exam - General 1994 Ears/Nose/Throat internal nose Overall: septum midline 12/18/2011 None Full Exam - General 1994 Ears/Nose/Throat internal nose Overall: no sinus tenderness 12/18/2011 None Full Exam - General 1994 Ears/Nose/Throat internal nose Nasal cavity: mucosal edema 12/18/2011 None Full Exam - General 1994 Ears/Nose/Throat internal nose Turbinates: erythema 12/18/2011 None Full Exam - General 1994 Ears/Nose/Throat lips/teeth/gingiva Overall: benign gingiva 12/18/2011 None Full Exam - General 1995 Ears/Nose/Throat lips/teeth/gingiva Overall: no masses 12/18/2011 None Full Exam - General 1995 Ears/Nose/Throat lips/teeth/gingiva Overall: normal dentition 12/18/2011 None Full Exam - General 1995 Ears/Nose/Throat lips/teeth/gingiva Overall: benign lips 12/18/2011 None Full Exam - General 1995 Ears/Nose/Throat oral cavity/pharynx/larynx Overall: oropharyngeal mucosa clear 12/18/2011 None Full Exam - General 1994 Ears/Nose/Throat oral cavity/pharynx/larynx Overall: no masses 12/18/2011 None Full Exam - General 1995 Ears/Nose/Throat oral cavity/pharynx/larynx Overall: oral mucosa clear 12/18/2011 None Full Exam - General 1994 Neck inspection of neck Overall: normal appearance 12/18/2011 None Full Exam - General 1994 Neck inspection of neck Overall: absence of swelling 12/18/2011 None Full Exam - General 1994 Neck inspection of neck Overall: no masses 12/18/2011 None Full Exam - General 1994 Neck inspection of neck Overall: normal size 12/18/2011 None Full Exam - General 1994 Respiratory palpation of chest Overall: normal excursion, no pain 12/18/2011 None Full Exam - General 1994 Respiratory auscultation Overall: breath sounds clear bilaterally 12/18/2011 None Full Exam - General 1994 Respiratory respiratory effort/rhythm Overall: normal rate 12/18/2011 None Full Exam - General 1994 Respiratory respiratory effort/rhythm Overall: no retractions 12/18/2011 None Full Exam - General 1994 Cardiovascular auscultation of heart Overall: regular rate 12/18/2011 None Full Exam - General 1994 Cardiovascular auscultation of heart Overall: normal heart sounds 12/18/2011 None Full Exam - General 1994 Cardiovascular auscultation of heart Overall: no murmurs 12/18/2011 None Full Exam - General 1994 Abdomen abdominal exam Overall: no tenderness 12/18/2011 None Full Exam - General 1994 Abdomen abdominal exam Overall: normal bowel sounds 12/18/2011 None Full Exam - General 1994 Psychiatric orientation/consciousness Overall: oriented to person, place and time 12/18/2011 None Full Exam - General 1994 Psychiatric mood and affect Mood: happy 12/18/2011 None Full Exam - General 1994 Psychiatric mood and affect Overall: normal mood and affect 12/18/2011 None Full Exam - General 1994 Neurologic cranial nerves Overall: crainial nerves 2 - 12 grossly intact 12/18/2011 None Full Exam - General 1994 Cardiovascular auscultation of heart Overall: regular rate 07/10/2011 None Full Exam - General 1994 Cardiovascular auscultation of heart Overall: normal heart sounds 07/10/2011 None Full Exam - General 1994 Cardiovascular auscultation of heart Overall: no murmurs 07/10/2011 None Full Exam - General 1995 Musculoskeletal head and neck Overall: head atraumatic 07/10/2011 None Full Exam - General 1994 Musculoskeletal head and neck Overall: cervical spine benign 07/10/2011 None Full Exam - General 1994 Musculoskeletal spine, ribs and pelvis Overall: good posture 07/10/2011 None Full Exam - General 1994 Neurologic deep tendon reflexes Overall: deep tendon reflexes intact 07/10/2011 None Full Exam - General 1994 Neurologic cranial nerves Overall: crainial nerves 2 - 12 grossly intact 07/10/2011 None Full Exam - General 1994 Psychiatric orientation/consciousness Overall: oriented to person, place and time 07/10/2011 None Full Exam - General 1994 Psychiatric mood and affect Overall: normal mood and affect 07/10/2011 None Full Exam - General 1994 Psychiatric appearance Overall: well-groomed, good eye contact 07/10/2011 None Full Exam - General 1994 Ears/Nose/Throat oral cavity/pharynx/larynx Overall: soft palate benign 07/10/2011 None Full Exam - General 1995 Ears/Nose/Throat oral cavity/pharynx/larynx Overall: base of tongue benign 07/10/2011 None Full Exam - General 1995 Ears/Nose/Throat oral cavity/pharynx/larynx Overall: tonsils benign 07/10/2011 None Full Exam - General 1994 Respiratory respiratory effort/rhythm Overall: no retractions 07/10/2011 None Full Exam - General 1995 Ears/Nose/Throat oral cavity/pharynx/larynx Overall: larynx benign 07/10/2011 None Full Exam - General 1995 Ears/Nose/Throat oral cavity/pharynx/larynx Overall: salivary glands benign 07/10/2011 None Full Exam - General 1995 Ears/Nose/Throat oral cavity/pharynx/larynx Overall: oropharyngeal mucosa clear 07/10/2011 None Full Exam - General 1995 Ears/Nose/Throat oral cavity/pharynx/larynx Overall: floor of mouth benign 07/10/2011 None Full Exam - General 1995 Ears/Nose/Throat oral cavity/pharynx/larynx Overall: hypopharynx benign 07/10/2011 None Full Exam - General 1995 Ears/Nose/Throat oral cavity/pharynx/larynx Overall: no masses 07/10/2011 None Full Exam - General 1995 Ears/Nose/Throat oral cavity/pharynx/larynx Overall: hard palate benign 07/10/2011 None Full Exam - General 1995 Ears/Nose/Throat oral cavity/pharynx/larynx Overall: mobile tongue benign 07/10/2011 None Full Exam - General 1995 Ears/Nose/Throat oral cavity/pharynx/larynx Overall: oral mucosa clear 07/10/2011 None Full Exam - General 1994 Respiratory auscultation Overall: breath sounds clear bilaterally 07/10/2011 None Full Exam - General 1994 Respiratory respiratory effort/rhythm Overall: normal rate 07/10/2011 None Full Exam - General 1994 Constitutional general appearance Overall: well nourished 07/10/2011 None Full Exam - General 1994 Constitutional general appearance Overall: well developed 07/10/2011 None Full Exam - General 1994 Constitutional general appearance Overall: in no acute distress 07/10/2011 None Full Exam - General 1994 Eyes pupils and irises Overall: pupils equal, round, reactive to light and accomodation 07/10/2011 None Full Exam - General 1994 Ears/Nose/Throat otoscopic exam Overall: tympanic membranes clear 07/10/2011 None Full Exam - General 1995 Ears/Nose/Throat otoscopic exam Overall: external auditory canals clear 07/10/2011 None Full Exam - General 1995 Ears/Nose/Throat lips/teeth/gingiva Overall: benign gingiva 07/10/2011 None Full Exam - General 1994 Ears/Nose/Throat lips/teeth/gingiva Overall: no masses 07/10/2011 None Full Exam - General 1995 Ears/Nose/Throat lips/teeth/gingiva Overall: normal dentition 07/10/2011 None Full Exam - General 1995 Ears/Nose/Throat lips/teeth/gingiva Overall: benign lips 07/10/2011 None Full Exam - General 1995 Ears/Nose/Throat oral cavity/pharynx/larynx Overall: retromolar trigone benign 07/10/2011 None Procedures Procedure Codes Date THER/PROPH/DIAG INJ SC/IM CPT-4: 82845 04/11/2017 TRIAMCINOLONE ACET INJ NOS CPT-4: J3301 04/11/2017 ROUTINE VENIPUNCTURE CPT-4: 05262 06/01/2014 TB INTRADERMAL TEST (includes injection fee) CPT-4: 72561 05/26/2014 TRIAMCINOLONE ACET INJ NOS CPT-4: J3301 08/07/2013 PRESCRIP TRANSMIT VIA ERX SY CPT-4: G8553 08/07/2013 ROUTINE VENIPUNCTURE CPT-4: 60998 05/20/2013 PRESCRIP TRANSMIT VIA ERX SY CPT-4: G8553 11/18/2012 ROUTINE VENIPUNCTURE CPT-4: 66580 05/20/2012 CA SCREEN;PELVIC/BREAST EXAM CPT-4: G0101 05/20/2012 OBTAINING SCREEN PAP SMEAR CPT-4: Q0091 05/20/2012 PPPS, SUBSEQ VISIT CPT -4: G0439 05/20/2012 TRIAMCINOLONE ACET INJ NOS CPT-4: J3301 12/18/2011 PRESCRIP TRANSMIT VIA ERX SY CPT-4: G8553 12/18/2011 Vital Signs Date Vital 09/27/2017 Blood Pressure 1: 144/88 Code : 8480-6 BMI: 39.0 Code : 10150-3 Heart Rate 1 : 80 bpm Height: 5'3" SpO2: 98% Weight: 220 lbs 06/22/2017 Blood Pressure 1: 128/78 Code : 8480-6 BMI: 37.9 Code : 99424-5 Heart Rate 1 : 77 bpm Height: 5'3" SpO2: 98% Weight: 214 lbs 06/11/2017 Blood Pressure 1: 124/86 Code : 8480-6 BMI: 37.9 Code : 35037-7 Heart Rate 1 : 94 bpm Height: 5'3" SpO2: 99% Weight: 214 lbs 04/11/2017 Blood Pressure 1: 130/70 Code : 8480-6 BMI: 37.7 Code : 74347-9 Heart Rate 1 : 76 bpm Height: 5'3" SpO2: 96% Temperature: 36.4 (C) / 97.6 (F) Weight: 213 lbs 04/10/2016 Blood Pressure 1: 132/88 Code : 8480-6 BMI: 35.8 Code : 72083-3 Heart Rate 1 : 67 bpm Height: 5'3" SpO2: 98% Weight: 202 lbs 04/09/2015 Blood Pressure 1: 132/74 Code : 8480-6 BMI: 34.7 Code : 12698-5 Heart Rate 1 : 80 bpm Height: 5'3" SpO2: 96% Weight: 196 lbs 05/26/2014 Blood Pressure 1: 118/72 Code : 8480-6 BMI: 35.1 Code : 82642-8 Heart Rate 1 : 60 bpm Height: 5'3" Weight: 198 lbs 08/07/2013 Blood Pressure 1: 98/60 Code : 8480-6 BMI: 34.9 Code : 09237-5 Heart Rate 1 : 104 bpm Height: 5'3" Temperature: 36.6 (C) / 97.8 (F) Weight: 197 lbs 05/19/2013 Blood Pressure 1: 108/70 Code : 8480-6 BMI: 34.7 Code : 25494-0 Heart Rate 1 : 72 bpm Height: 5'3" Weight: 196 lbs 11/18/2012 Blood Pressure 1: 128/78 Code : 8480-6 Heart Rate 1: 80 bpm Weight: 188 lbs 05/20/2012 Blood Pressure 1: 98/68 Code : 8480-6 Heart Rate 1: 72 bpm Respiratory Rate : 16 bpm Weight: 186 lbs 12/18/2011 Blood Pressure 1: 108/80 Code : 8480-6 BMI: 32.3 Code : 35976-1 Heart Rate 1 : 100 bpm Height: 5'3" Respiratory Rate: 16 bpm Weight: 182 lbs 8 oz 07/10/2011 Blood Pressure 1: 100/76 Code : 8480-6 BMI: 34.3 Code : 50222-1 Heart Rate 1 : 72 bpm Height: 5'3" Respiratory Rate: 20 bpm Weight: 193 lbs 8 oz Functional Status No Functional Status data History of Present Illness Symptom Name Status Result Effective Date Notes well woman exam (40-65 years) Lifestyle normal sleep patterns 09/27/2017 None well woman exam (40-65 years) Control regular use 09/27/2017 None well woman exam (40-65 years) Nutrition and Exercise overweight 09/27/2017 None well woman exam (40-65 years) Health Guidance baseline mammogram 09/27/2017 None well woman exam (40-65 years) Sexual Activity is not sexually active 09/27/2017 None well woman exam (40-65 years) Lifestyle regular seatbelt use 09/27/2017 None well woman exam (40-65 years) Nutrition and Exercise moderate exercise 09/27/2017 None well woman exam (40-65 years) Cardiovascular Risk Factors obesity 09/27/2017 None well woman exam (40-65 years) Pap Smear normal results 09/27/20172014 well woman exam (40-65 years) Obstetrical History 0 total pregnancies 09/27/2017 None pain, limb Location on the left leg 06/22/2017 None pain, limb Quality worsening 06/22/2017 None pain, limb Onset and Resolution sudden in onset 06/22/2017 None pain, limb Onset of Symptom 2 weeks ago 06/22/2017 None pain, limb Frequency of Episodes daily 06/22/2017 None pain, limb Triggers rest 06/22/2017 None pain, limb Alleviating Factors activity 06/22/2017 None lymph node enlargement/mass Location in the right post-auricular 06/11/2017 None lymph node enlargement/mass Quality acute 06/11/2017 None lymph node enlargement/mass Quality worsening 06/11/2017 None lymph node enlargement/mass Onset and Resolution sudden in onset 06/11/2017 None lymph node enlargement/mass Pertinent Findings edema 06/11/2017 None lymph node enlargement/mass Pertinent Findings Denies nausea 06/11/2017 None lymph node enlargement/mass Pertinent Findings Denies recent immunizations 06/11/2017 None lymph node enlargement/mass Pertinent Findings Denies URI symptoms 06/11/2017 None lymph node enlargement/mass Pertinent Findings Denies cough 06/11/2017 None cough Location in the throat 04/11/2017 None cough Quality productive 04/11/2017 None cough Onset and Resolution sudden in onset 04/11/2017 None cough Pertinent Findings Denies chest discomfort 04/11/2017 None cough Pertinent Findings dyspnea 04/11/2017 None cough Pertinent Findings Denies fever 04/11/2017 None well woman exam (40-65 years) Lifestyle normal sleep patterns 04/11/2017 None well woman exam (40-65 years) Nutrition and Exercise overweight 04/11/2017 None well woman exam (40-65 years) Sexual Activity is not sexually active 04/11/2017 None well woman exam (40-65 years) Lifestyle normal sleep patterns 04/10/2016 None well woman exam (40-65 years) Nutrition and Exercise overweight 04/10/2016 None well woman exam (40-65 years) Health Guidance baseline mammogram 04/10/2016 None well woman exam (40-65 years) Sexual Activity is not sexually active 04/10/2016 None well woman exam (40-65 years) Control regular use 04/10/2016 None well woman exam (40-65 years) Pap Smear normal results 04/09/20152011 well woman exam (40-65 years) Menstrual History regular menses 04/09/2015 None well woman exam (40-65 years) Control none 04/09/2015 None well woman exam (40-65 years) Nutrition and Exercise overweight 04/09/2015 None well woman exam (40-65 years) Lifestyle normal sleep patterns 04/09/2015 None well woman exam (40-65 years) Health Guidance baseline mammogram 04/09/2015 None well woman exam (40-65 years) Sexual Activity is not sexually active 04/09/2015 None seizure Quality chronic 05/26/2014 None seizure Quality stable 05/26/2014 None seizure Onset and Resolution resolved 05/26/2014 None seizure Onset of Symptom during adulthood 05/26/2014 None seizure Significant Medical Conditions known seizure disorder 05/26/2014 None seizure Significant Medications oral contraceptives 05/26/2014 None seizure Significant Medications antiepileptic medications 05/26/2014 None seizure Triggers no known associated factors 05/26/2014 None seizure Alleviating Factors medication 05/26/2014 None seizure Pertinent Findings Denies anxiety 05/26/2014 None seizure Pertinent Findings Denies confusion 05/26/2014 None seizure Pertinent Findings Denies dizziness 05/26/2014 None seizure Pertinent Findings Denies lightheadedness 05/26/2014 None seizure Pertinent Findings Denies nausea 05/26/2014 None seizure Frequency of Episodes unchanged 05/26/2014 last seizure september 2013 cough Quality acute None cough Onset and Resolution sudden in onset 08/07/2013 None cough Onset of Symptom 2 days ago 08/07/2013 None cough Quality productive 08/07/2013 None cough Pertinent Findings sputum production 08/07/2013 None cough Pertinent Findings nasal congestion 08/07/2013 complains of pressure underneath eyes. cough Alleviating Factors OTC medications 08/07/2013 taking OTC allergy pills, no relief. cough Limitation on Activities does not limit activities 08/07/2013 None cough Frequency of Episodes increasing 08/07/2013 None cough Triggers no known associated factors 08/07/2013 None seizure Quality chronic 05/19/2013 None seizure Quality stable 05/19/2013 None seizure Onset and Resolution resolved 05/19/2013 None seizure Onset of Symptom during adulthood 05/19/2013 None seizure Significant Medical Conditions known seizure disorder 05/19/2013 None seizure Significant Medications oral contraceptives 05/19/2013 None seizure Significant Medications antiepileptic medications 05/19/2013 None seizure Triggers no known associated factors 05/19/2013 None seizure Alleviating Factors medication 05/19/2013 None seizure Pertinent Findings Denies anxiety 05/19/2013 None seizure Pertinent Findings Denies confusion 05/19/2013 None seizure Pertinent Findings Denies dizziness 05/19/2013 None seizure Pertinent Findings Denies lightheadedness 05/19/2013 None seizure Pertinent Findings Denies nausea 05/19/2013 None sinus congestion Pertinent Findings Denies cough 11/18/2012 None sinus congestion Quality acute 11/18/2012 None sinus congestion Onset of Symptom 2 weeks ago 11/18/2012 complains of headache due to congestion sinus congestion Triggers no known associated factors 11/18/2012 None sinus congestion Exacerbating Factors nasal infection 11/18/2012 None well woman exam (18-39 years) Control oral contraceptives 05/20/2012 None well woman exam (18-39 years) Cardiovascular Risk Factors lifestyle 05/20/2012 None well woman exam (18-39 years) Health Guidance control options 05/20/2012 None well woman exam (18-39 years) Health Guidance self-breast exam 05/20/2012 None well woman exam (18-39 years) Health Guidance tobacco, drugs and alcohol avoidance 05/20/2012 None well woman exam (18-39 years) Lifestyle dissatisfactory marriage/partner relationship 05/20/2012 None well woman exam (18-39 years) Lifestyle satisfactory marriage/partner relationship 05/20/2012 None well woman exam (18-39 years) Menstrual History regular menses 05/20/2012 None well woman exam (18-39 years) Nutrition and Exercise minimal exercise 05/20/2012 None well woman exam (18-39 years) Nutrition and Exercise moderate exercise 05/20/2012 None well woman exam (18-39 years) Nutrition and Exercise no exercise 05/20/2012 None well woman exam (18-39 years) Nutrition and Exercise normal weight 05/20/2012 None well woman exam (18-39 years) Sexual Activity is not sexually active 05/20/2012 None well woman exam (18-39 years) Control regular use 05/20/2012 None well woman exam (18-39 years) Pap Smear normal results 05/20/2012 None sore throat Quality scratchy 12/18/2011 None sore throat Onset of Symptom 1 weeks ago 12/18/2011 None seizure Significant Medical Conditions known seizure disorder 12/18/2011 None seizure Frequency of Episodes decreasing 12/18/2011 has not had a seizure for several months sore throat Frequency of Episodes unchanged 12/18/2011 started taking OTC claritin 1 week ago sore throat Length of Episodes 1 weeks 12/18/2011 None sore throat Timing of Episodes at night 12/18/2011 coughing more at night seizure Onset of Symptom 6 months ago 12/18/2011 None seizure Limitation on Activities does not limit activities 12/18/2011 None seizure Onset of Symptom during adulthood 07/10/2011 None seizure Onset of Symptom 4 weeks ago 07/10/2011 None seizure Length of Episodes 1 minutes 07/10/2011 None seizure Timing of Episodes at night 07/10/2011 None seizure Significant Medical Conditions known seizure disorder 07/10/2011 None seizure Significant Medications oral contraceptives 07/10/2011 None seizure Triggers exertion 07/10/2011 Pt. states when she gets tired and doesn't rest, she will get a headache and a seizure follows seizure Alleviating Factors rest 07/10/2011 None seizure Quality single event 07/10/2011 None seizure Quality in a generalized area 07/10/2011 in right upper medial thigh Advance Directives No Advance Directive data Encounters Encounter Performer Location Codes Date ([id number]) [id number] EST. PATIENT, LEVEL IV Diagnosis: Encounter for general adult medical examination without abnormal findings[ICD10: Z00.00] Diagnosis: Encounter for screening mammogram for malignant neoplasm of breast[ ICD10: Z12.31] [facility] CPT-4: 35978 09/27/2017 [id number]) 02568 EST. PATIENT, LEVEL III Diagnosis: Iliotibial band syndrome, left leg[ICD10: M76.32] Diagnosis: Cerebral palsy, unspecified[ICD10: G80.9] [facility] CPT-4: 25355 06/22/2017 [id number]) 02127 EST. PATIENT, LEVEL III Diagnosis: Acute pharyngitis due to other specified organisms[ICD10: J02.8] Diagnosis: Cough[ICD10: R05] [facility] CPT-4: 41563 06/11/2017 ([id number]) 30497 EST. PATIENT, LEVEL IV Diagnosis: Encounter for general adult medical examination without abnormal findings[ICD10: Z00.00] Diagnosis: Other muscle spasm[ICD10: M62.838] Mildred Saunders MD, [facility] CPT-4: 32098 04/11/2017 ([id number]) 13264 EST. PATIENT, LEVEL IV Diagnosis: Encounter for general adult medical examination without abnormal findings[ICD10: Z00.00] Mildred Saunders MD, [facility] CPT-4: 78444 04/10/2016 ([id number]) 39053 EST. PATIENT, LEVEL IV Diagnosis: ROUTINE GYNE EXAM[ICD9: V72.31] Diagnosis: EPILEPSY NOS, NOT INTRACT[ICD9: 345.90] Vivian Saunders MD, [facility] CPT-4: 33866 04/09/2015 ([id number]) Miscellaneous no charge Diagnosis: Visit for TB skin test[ICD9: V74.1] Mildred Saunders MD, [facility] CPT-4: 95704 05/28/2014 ([id number]) 63761 EST. PATIENT, LEVEL IV Diagnosis: Seizure disorder[ICD9: 345.90] Diagnosis: Routine medical exam[ICD9: V70.0] Diagnosis: Encounter for PPD test[ICD9: V74.1] Vivian Saunders MD, [facility] CPT-4: 97883 05/26/2014 ([id number]) 71261 EST. PATIENT, LEVEL III Diagnosis: ACUTE SINUSITIS[ICD9: 461.9] Vivian Saunders MD, [facility] CPT-4: 54422 08/07/2013 ([id number]) 72253 EST. PATIENT, LEVEL IV Diagnosis: EPILEPSY NOS, NOT INTRACT[ICD9: 345.90] Diagnosis: Encounter for therapeutic drug level monitoring[ICD9: V58.83] Diagnosis: Routine medical exam[ICD9: V70.0] Mildred Saunders MD, [facility] CPT-4: 92760 05/19/2013 ([id number]) 88522 EST. PATIENT, LEVEL III Diagnosis: Acute maxillary sinusitis[ICD9: 461.0] Diagnosis: CHRONIC RHINITIS[ICD9: 472.0] Diagnosis: BPPV (benign paroxysmal positional vertigo)[ICD9: 386.11] [facility] CPT-4: 77595 11/18/2012 ([id number]) 06974 EST. PATIENT, LEVEL IV Diagnosis: EPILEPSY NOS, NOT INTRACT[ICD9: 345.90] Diagnosis: COUGH[ICD9: 786.2] [facility] CPT-4: 58303 12/18/2011 [id number] EST. PATIENT, LEVEL IV Diagnosis: Muscle spasm, nocturnal[ICD9: 728.85] Diagnosis: Seizure disorder[ICD9: 345.90] [facility] CPT- 4: 29868 07/10/2011 Plan of Care Planned Activity Notes Codes Status Date Visit Plan: Well Adult - pt was counseled about diet, exercise, and encouraged to follow a heart healthy diet and increase activity level. The patient was instructed to RTC yearly for well adult exams and PRN for acute illnesses. The pt was also instructed to have yearly labs for check of cholesterol, thyroid, chem panel, CBC, and renal functioning. Wart-left foot- sanded with dremmel today in the office-patient verbalized pain relief following 09/27/2017 Appointment: Vivian Lindsey WPtel: [address] [place] [address] Well Woman 09/27/2017 Patient Education: Patient Medication Summary Completed 09/27/2017 Visit Plan: Cerebral Palsy-left leg pain-gait instability- Iliotibial band syndrome- recommended use of anti-inflammatories and refer for PT to evaluate and treat. RX sent to [facility]. 06/22/2017 Appointment: Vivian Lindsey WPtel: [phone] (30 min) Complex 06/22/2017 Patient Education: Patient Medication Summary Completed 06/22/2017 Patient Education: Obesity Completed 06/22/2017 Visit Plan: URI -Cough - Throat pain - Pt advised to increase fluids, vitamin C. Discussed natural and expected course of this diagnosis and need to alert me if symptoms do not follow expected course, or if any worse. RX sent to patient's pharmacy. 06/11/2017 Appointment: Mildred Saunders WPtel: [facility] (15 min) Moderate 06/11/2017 Patient Education: Patient Medication Summary Completed 06/11/2017 Patient Education: Obesity Completed 06/11/2017 Appointment: Vivian Lindsey WPtel: [phone] Well Woman 04/13/2017 Visit Plan: Well Adult - pt was counseled about diet, exercise, and encouraged to follow a heart healthy diet and increase activity level. The patient was instructed to RTC yearly for well adult exams and PRN for acute illnesses. The pt was also instructed to have yearly labs for check of cholesterol, thyroid, chem panel, CBC, and renal functioning. Cough - suspect allergies - shot of kenalog today - zatador eye drops and flonase. 04/11/2017 Visit Plan: Well Adult - pt was counseled about diet, exercise, and encouraged to follow a heart healthy diet and increase activity level. The patient was instructed to RTC yearly for well adult exams and PRN for acute illnesses. The pt was also instructed to have yearly labs for check of cholesterol, thyroid, chem panel, CBC, and renal functioning. Cough - suspect allergies - shot of kenalog today - zatador eye drops and flonase. 04/11/2017 Appointment: Mildred Saunders WPtel: [facility] (15 min) Moderate 04/11/2017 Appointment: Mildred Saunders WPtel: [facility] (15 min) Moderate 04/11/2017 Patient Education: Patient Medication Summary Completed 04/11/2017 Care Plan: Comp Metabolic Pending 04/11/2017 Visit Plan: Well Adult - pt was counseled about diet, exercise, and encouraged to follow a heart healthy diet and increase activity level. The patient was instructed to RTC yearly for well adult exams and PRN for acute illnesses. The pt was also instructed to have yearly labs for check of cholesterol, thyroid, chem panel, CBC, and renal functioning. 04/10/2016 Visit Plan: Well Adult - pt was counseled about diet, exercise, and encouraged to follow a heart healthy diet and increase activity level. The patient was instructed to RTC yearly for well adult exams and PRN for acute illnesses. The pt was also instructed to have yearly labs for check of cholesterol, thyroid, chem panel, CBC, and renal functioning. 04/10/2016 Patient Education: Patient Medication Summary Completed 04/10/2016 Visit Plan: Well Adult Female - exam completed. Pap and gc/ chlamydia and breast exam completed. Pt will be called with results of her testing. She was advised to continue with exams as directed.Call if any abnormal gynecologic issues during the next year, otherwise, RTC yearly or prn. Well Adult Female - exam completed. Pap and gc/chlamydia and breast exam completed. Pt will be called with results of her testing. She was advised to continue with yearly annual exams. Safe sex practices discussed during office visit today. Call if any abnormal gynecologic issues during the next year, otherwise, RTC yearly or prn. 04/09/2015 Visit Plan: Well Adult Female - exam completed. Pap and gc/ chlamydia and breast exam completed. Pt will be called with results of her testing. She was advised to continue with exams as directed.Call if any abnormal gynecologic issues during the next year, otherwise, RTC yearly or prn. Well Adult Female - exam completed. Pap and gc/chlamydia and breast exam completed. Pt will be called with results of her testing. She was advised to continue with yearly annual exams. Safe sex practices discussed during office visit today. Call if any abnormal gynecologic issues during the next year, otherwise, RTC yearly or prn. 04/09/2015 Appointment: [facility] [phone] [phone] [facility] Woman 04/09/2015 Patient Education: Patient Medication Summary Completed 04/09/2015 Care Plan[facility] Ordered 04/09/2015 Care Plan: PAP Pending 04/09/2015 Appointment: Well Woman 04/02/2015 Patient Education: Patient Medication Summary Completed 06/01/2014 Appointment: Mildred Saunders [facility]Ptel[facility] [phone] [id number] Nurse Visit 05/28/2014 Patient Education: Patient Medication Summary Completed 05/28/2014 Visit Plan: Well Adult - pt was counseled about diet, exercise, and encouraged to follow a heart healthy diet and increase acrtivity level. The patient was instructed to RTC yearly for well adult exams and PRN for acute illnesses. The pt was also instructed to have yearly labs for check of cholesterol, thyroid, chem panel, CBC, and renal functioning. Chronic medication use for epilepsy - check keppra levels. well woman exam in 1-2 years 05/26/2014 Appointment: Follow up 05/26/2014 Patient Education: Patient Medication Summary Completed 05/26/2014 Visit Plan: Sinusitis - Pt has acute infection - pain in face, maxillary region, Pt informed to use decongestant, RX given to patient, sinus rinses also recommended. Call if symptoms do not show improvement. Kenalog injection today in the office. 08/07/2013 Patient Education: Patient Medication Summary Completed 08/07/2013 Appointment: Mildred Saunders WPtel[facility] [phone] [id number] [facility] Lab Draw 05/20/2013 Patient Education: Patient Medication Summary Completed 05/20/2013 Visit Plan: Well Adult - pt was counseled about diet, exercise, and encouraged to follow a heart healthy diet and increase acrtivity level. The patient was instructed to RTC yearly for well adult exams and PRN for acute illnesses. The pt was also instructed to have yearly labs for check of cholesterol, thyroid, chem panel, CBC, and renal functioning. Chronic medication use for epilepsy - check keppra levels. well woman exam in 2-3 years. 05/19/2013 Appointment: Mildred Saunders WPtel: [phone] [facility] Follow up 05/19/2013 Patient Education: Patient Medication Summary Completed 05/19/2013 Visit Plan: Sinusitis - Pt has acute infection - pain in face, maxillary region, Pt informed to use decongestant, RX given to patient, sinus rinses also recommended. Call if symptoms do not show improvement. Allergies - chronic - recommended pt to use allergy medication as prescribed. Pt has been counseled as the the appropriate use of the medication. Pt to call if allergy symptoms are not controlled with the medication. If using nasal spray , instructions as follows: Nasal spray- use twice daily, one spray per nostril twice daily, after 30 minutes, rinse out nose with saline spray.. Use opposite hand per nostril to spray in the nasal steroid allergy spray. BPPV - Benign Paroxysmal Positional Vertigo - discussed diagnosis with the patient, offered the pt the appropriate additional information in hand-out. Pt instructed in home exercises to help alleviate and prevent future recurrent episodes of vertigo. Pt informed that if symptoms worsen, call the office for further instructions/medication interventions. 11/18/2012 Appointment: Mildred Saunders WPtel: [facility] Established Patient Preventative visit 11/18/2012 Patient Education: Patient Medication Summary Completed 11/18/2012 Patient Education: .Amazing charts Paroxysmal positional vertigo Completed 01/2013 Visit Plan: Well Adult Female - exam completed. Pap and gc/ chlamydia and breast exam completed. Pt will be called with results of her testing. She was advised to continue with yearly annual exams. Safe sex practices discussed during office visit today. Call if any abnormal gynecologic issues during the next year, otherwise, RTC yearly or prn. 05/20/2012 Appointment: Mildred Saunders WPtel: [facility] Well Woman 05/20/2012 Patient Education: Patient Medication Summary Completed 05/20/2012 Visit Plan: Allergies - chronic - recommended pt to use allergy medication as prescribed. Pt has been counseled as the the appropriate use of the medication. Pt to call if allergy symptoms are not controlled with the medication. Epilepsy- no change in current medication.. Pt has had no seizures since the start of the keppra. 12/18/2011 Appointment: Mildred Saunders WPtel: [facility] [address] Other 12/18/2011 Patient Education: Patient Medication Summary Completed 12/18/2011 Visit Plan: Muscle spams- recommend to take 1/2 bannana and skim milk before bed. By the description of event, it does not appear that Xochitl had a seizure. She is to keep on her current dose of keppra and report any symptoms to the office. She is to report of the extra potassium and calcium in her diet before bed does not improve her symptoms. Xochitl has weakness on her right side from trauma and cerebral palsy - when she is tired the right side weakens and I suspect this is the cause of her symptoms. 07/10/2011 Appointment: Mildred Saunders WPtel: [phone] [facility] Other 07/10/2011 Patient Education: Patient Medication Summary Completed 07/10/2011 Instructions Comment . Well Adult - pt was counseled about diet, exercise, and encouraged to follow a heart healthy diet and increase activity level. The patient was instructed to RTC yearly for well adult exams and PRN for acute illnesses. The pt was also instructed to have yearly labs for check of cholesterol, thyroid, chem panel, CBC, and renal functioning. Wart-left foot-sanded with dremmel today in the office-patient verbalized pain relief following . Muscle spams- recommend to take 1/2 bannana and skim milk before bed. By the description of event, it does not appear that Xochitl had a seizure. She is to keep on her current dose of keppra and report any symptoms to the office. She is to report of the extra potassium and calcium in her diet before bed does not improve her symptoms. Xochitl has weakness on her right side from trauma and cerebral palsy - when she is tired the right side weakens and I suspect this is the cause of her symptoms. . Allergies - chronic - recommended pt to use allergy medication as prescribed. Pt has been counseled as the the appropriate use of the medication. Pt to call if allergy symptoms are not controlled with the medication. Epilepsy- no change in current medication.. Pt has had no seizures since the start of the keppra. Nasal spray- use twice daily, one spray per nostril twice daily, after 30 minutes, rinse out nose with saline spray.. Use opposite hand per nostril to spray in the nasal steroid allergy spray .flonase nasal spray zatador eye drops - use twice a day x 3 days then every day prn eye irritation tonic water - with quinine 4 ounces with 2 ounce of orange juice - drink before bed . Well Adult - pt was counseled about diet, exercise, and encouraged to follow a heart healthy diet and increase activity level. The patient was instructed to RTC yearly for well adult exams and PRN for acute illnesses. The pt was also instructed to have yearly labs for check of cholesterol, thyroid, chem panel, CBC, and renal functioning. Cough - suspect allergies - shot of kenalog today - zatador eye drops and flonase. Nasal spray- use twice daily, one spray per nostril twice daily, after 30 minutes, rinse out nose with saline spray.. Use opposite hand per nostril to spray in the nasal steroid allergy spray .flonase nasal spray zatador eye drops - use twice a day x 3 days then every day prn eye irritation tonic water - with quinine 4 ounces with 2 ounce of orange juice - drink before bed . Well Adult - pt was counseled about diet, exercise, and encouraged to follow a heart healthy diet and increase activity level. The patient was instructed to RTC yearly for well adult exams and PRN for acute illnesses. The pt was also instructed to have yearly labs for check of cholesterol, thyroid, chem panel, CBC, and renal functioning. Cough - suspect allergies - shot of kenalog today - zatador eye drops and flonase. Nasal spray- use twice daily, one spray per nostril twice daily, after 30 minutes, rinse out nose with saline spray.. Use opposite hand per nostril to spray in the nasal steroid allergy spray.. Sinusitis - Pt has acute infection - pain in face, maxillary region, Pt informed to use decongestant, RX given to patient, sinus rinses also recommended. Call if symptoms do not show improvement. Allergies - chronic - recommended pt to use allergy medication as prescribed. Pt has been counseled as the the appropriate use of the medication. Pt to call if allergy symptoms are not controlled with the medication. If using nasal spray, instructions as follows: Nasal spray- use twice daily, one spray per nostril twice daily, after 30 minutes, rinse out nose with saline spray.. Use opposite hand per nostril to spray in the nasal steroid allergy spray. BPPV - Benign Paroxysmal Positional Vertigo - discussed diagnosis with the patient, offered the pt the appropriate additional information in hand-out. Pt instructed in home exercises to help alleviate and prevent future recurrent episodes of vertigo. Pt informed that if symptoms worsen, call the office for further instructions/medication interventions. TB skin for class LTD Return Sunday for labs . Well Adult - pt was counseled about diet, exercise, and encouraged to follow a heart healthy diet and increase acrtivity level. The patient was instructed to RTC yearly for well adult exams and PRN for acute illnesses. The pt was also instructed to have yearly labs for check of cholesterol, thyroid, chem panel, CBC, and renal functioning. Chronic medication use for epilepsy - check keppra levels. well woman exam in 1-2 years . Well Adult - pt was counseled about diet, exercise, and encouraged to follow a heart healthy diet and increase activity level. The patient was instructed to RTC yearly for well adult exams and PRN for acute illnesses. The pt was also instructed to have yearly labs for check of cholesterol, thyroid, chem panel, CBC, and renal functioning. . Well Adult - pt was counseled about diet, exercise, and encouraged to follow a heart healthy diet and increase activity level. The patient was instructed to RTC yearly for well adult exams and PRN for acute illnesses. The pt was also instructed to have yearly labs for check of cholesterol, thyroid, chem panel, CBC, and renal functioning. Mammogram-Sunday as early as possible . Well Adult Female - exam completed. Pap and gc/chlamydia and breast exam completed. Pt will be called with results of her testing. She was advised to continue with exams as directed.Call if any abnormal gynecologic issues during the next year, otherwise, RTC yearly or prn. Well Adult Female - exam completed. Pap and gc/chlamydia and breast exam completed. Pt will be called with results of her testing. She was advised to continue with yearly annual exams. Safe sex practices discussed during office visit today. Call if any abnormal gynecologic issues during the next year, otherwise, RTC yearly or prn. Mammogram-Sunday morning as early as possible . Well Adult Female - exam completed. Pap and gc/chlamydia and breast exam completed. Pt will be called with results of her testing. She was advised to continue with exams as directed.Call if any abnormal gynecologic issues during the next year, otherwise, RTC yearly or prn. Well Adult Female - exam completed. Pap and gc/chlamydia and breast exam completed. Pt will be called with results of her testing. She was advised to continue with yearly annual exams. Safe sex practices discussed during office visit today. Call if any abnormal gynecologic issues during the next year, otherwise, RTC yearly or prn. . Cerebral Palsy-left leg pain-gait instability-Iliotibial band syndrome- recommended use of anti-inflammatories and refer for PT to evaluate and treat. RX sent to [place] or [facility] - take three times daily while taking antibiotic . URI -Cough - Throat pain - Pt advised to increase fluids, vitamin C. Discussed natural and expected course of this diagnosis and need to alert me if symptoms do not follow expected course, or if any worse. RX sent to patient's pharmacy. . Well Adult Female - exam completed. Pap and gc/ chlamydia and breast exam completed. Pt will be called with results of her testing. She was advised to continue with yearly annual exams. Safe sex practices discussed during office visit today. Call if any abnormal gynecologic issues during the next year, otherwise, RTC yearly or prn. . Sinusitis - Pt has acute infection - pain in face, maxillary region, Pt informed to use decongestant, RX given to patient, sinus rinses also recommended. Call if symptoms do not show improvement. Kenalog injection today in the office. . Well Adult - pt was counseled about diet, exercise, and encouraged to follow a heart healthy diet and increase acrtivity level. The patient was instructed to RTC yearly for well adult exams and PRN for acute illnesses. The pt was also instructed to have yearly labs for check of cholesterol, thyroid, chem panel, CBC, and renal functioning. Chronic medication use for epilepsy - check keppra levels. well woman exam in 2-3 years.
[2018-07-23] MEDS ORDERED: NS IV 1000 ML 1,000 ML IV SCH (19:27)
[2018-07-23] MEDS ORDERED: KETOROLAC 30 MG/ML VIAL IVP ONE (19:30)
[2018-07-23] MEDS ORDERED: PIPERACILLIN SODIUM/TAZOBACTAM 4.5 GM in NS (IVPB) 100 ML IV ONE (19:30)
--- NOTE | 2018-07-23 19:39 | ED Abdominal Pain ---
General Stated Complaint: ABD PAIN Source of Information: Patient Exam Limitations: No Limitations History of Present Illness Date Seen by Provider: Jul 23, 2018 Time Seen by Provider: 19:24 Initial Comments The patient presents to the ER by private conveyance with her brother and mother and chief complaint she's been having some abdominal pain for about a week now and is progressively gotten worse. It seems to be mostly in her left upper quadrant but radiates all over. She's also been having some nonbloody diarrhea without nausea or vomiting. She's had no fevers until Sunday when she had 103.9. She's been using Tylenol rotated with ibuprofen with modest relief of her pain. She does not have a history of diverticulosis or any abdominal surgeries or trauma that she is aware of. She is on control to help regulate her periods. She has a history of cerebral palsy. She also uses Keppra for history of seizure activity. She did not have any shortness breath, cough, chest pain, rash. Allergies and Home Medications Allergies Coded Allergies: codeine (Verified Allergy, Unknown, psych, 07/23/18) Patient Home Medication List Home Medication List Reviewed: Yes Review of Systems Review of Systems Constitutional: chills, fever, malaise EENTM: No Blurred Vision, No Double Vision Respiratory: Denies Cough, Denies Shortness of Air Cardiovascular: Denies Chest Pain, Denies Lightheadedness Gastrointestinal: See HPI, Abdomen Distended, Abdominal Pain; Denies Blood Streaked Stools, Denies Constipated; Diarrhea; Denies Difficulty Swallowing, Denies Nausea; Poor Appetite; Denies Vomiting Genitourinary: Denies Burning, Denies Discharge Musculoskeletal: No back pain, No joint pain Skin: No pruritus, No rash Psychiatric/Neurological: Denies Headache, Denies Numbness, Denies Paresthesia Past Cqlvruh-Bjwvyd-Ddljfe Hx Patient Social History Alcohol Use: Denies Use Recreational Drug Use: No Smoking Status: Never a Smoker Recent Foreign Travel: No Contact w/Someone Who Travel: No Physical Exam Vital Signs Vital Signs - First Documented 07/23/18 19:21 Temp 99.6 Pulse 116 Resp 18 B/P (MAP) 151/98 (115) Pulse Ox 98 O2 Delivery Room Air Capillary Refill : Height/Weight/BMI Height: '" Weight: lbs. oz. kg; BMI Method: General Appearance: moderate distress, obese HEENT: PERRL/EOMI, normal ENT inspection, TMs normal, pharynx normal Neck: non-tender, full range of motion, supple, normal inspection Respiratory: chest non-tender, lungs clear, normal breath sounds, no respiratory distress, no accessory muscle use Cardiovascular: normal peripheral pulses, regular rate, rhythm Peripheral Pulses: 2+ Radial Pulses (R), 2+ Radial Pulses (L) Gastrointestinal: normal bowel sounds, guarding; No rebound; tenderness (. 4 quadrants) Extremities: normal range of motion, non-tender, normal capillary refill Neurologic/Psychiatric: alert, normal mood/affect, oriented x 3 Skin: normal color, warm/dry Focused Exam Lactate Level 07/23/18 19:40: Lactic Acid Level 1.34 Lactic Acid Level Laboratory Tests Test 07/23/18 19:40 Lactic Acid Level 1.34 MMOL/L (0.50-2.00) Progress/Results/Core Measures Results/Orders Lab Results Laboratory Tests Test 07/23/18 19:40 07/23/18 20:59 Range/Units White Blood Count 4.0 L 4.3-11.0 10^3/uL Red Blood Count 4.08 L 4.35-5.85 10^6/uL Hemoglobin 12.1 11.5-16.0 G/DL Hematocrit 36 35-52 % Mean Corpuscular Volume 89 80-99 FL Mean Corpuscular Hemoglobin 30 25-34 PG Mean Corpuscular Hemoglobin Concent 33 32-36 G/DL Red Cell Distribution Width 13.8 10.0-14.5 % Platelet Count 436 H 130-400 10^3/uL Mean Platelet Volume 9.4 7.4-10.4 FL Neutrophils (%) (Auto) 72 42-75 % Lymphocytes (%) (Auto) 14 12-44 % Monocytes (%) (Auto) 11 0-12 % Eosinophils (%) (Auto) 3 0-10 % Basophils (%) (Auto) 0 0-10 % Neutrophils # (Auto) 2.9 1.8-7.8 X 10^3 Lymphocytes # (Auto) 0.5 L 1.0-4.0 X 10^3 Monocytes # (Auto) 0.4 0.0-1.0 X 10^3 Eosinophils # (Auto) 0.1 0.0-0.3 10^3/uL Basophils # (Auto) 0.0 0.0-0.1 10^3/uL Prothrombin Time 13.4 12.2-14.7 SEC INR Comment 1.0 0.8-1.4 Activated Partial Thromboplast Time 28 24-35 SEC Sodium Level 140 135-145 MMOL/L Potassium Level 3.3 L 3.6-5.0 MMOL/L Chloride Level 106 98-107 MMOL/L Carbon Dioxide Level 22 21-32 MMOL/L Anion Gap 12 5-14 MMOL/L Blood Urea Nitrogen 9 7-18 MG/DL Creatinine 0.83 0.60-1.30 MG/DL Estimat Glomerular Filtration Rate > 60 BUN/Creatinine Ratio 11 Glucose Level 119 H 70-105 MG/DL Lactic Acid Level 1.34 0.50-2.00 MMOL/L Calcium Level 8.5 8.5-10.1 MG/DL Corrected Calcium 9.0 8.5-10.1 MG/DL Total Bilirubin 0.3 0.1-1.0 MG/DL Aspartate Amino Transf (AST/SGOT) 54 H 5-34 U/L Alanine Aminotransferase (ALT/SGPT) 46 0-55 U/L Alkaline Phosphatase 84 40-136 U/L Total Protein 6.5 6.4-8.2 GM/DL Albumin 3.4 3.2-4.5 GM/DL Lipase 41 8-78 U/L Serum Test, Qualitative NEGATIVE NEGATIVE Urine Color YELLOW Urine Clarity CLEAR Urine pH 6 5-9 Urine Specific [place] 1.015 L 1.016-1.022 Urine Protein 3+ H NEGATIVE Urine Glucose (UA) NEGATIVE NEGATIVE Urine Ketones NEGATIVE NEGATIVE Urine Nitrite NEGATIVE NEGATIVE Urine Bilirubin NEGATIVE NEGATIVE Urine Urobilinogen NORMAL NORMAL MG/DL Urine Leukocyte Esterase 1+ H NEGATIVE Urine RBC (Auto) 4+ H NEGATIVE Urine RBC 0-2 /HPF Urine WBC 2-5 /HPF Urine Squamous Epithelial Cells 10-25 H /HPF Urine Crystals NONE /LPF Urine Bacteria FEW H /HPF Urine Casts NONE /LPF Urine Mucus NEGATIVE /LPF Urine Culture Indicated NO My Orders Orders - REYMUNDO MENDOZA Ct Abdomen/Pelvis W (07/23/18 19:27) Saline Lock/Iv-Start (07/23/18 19:27) Cbc With Automated Diff (07/23/18 19:27) Comprehensive Metabolic Panel (07/23/18 19:27) Blood Culture (07/23/18) Sputum Culture (07/23/18) Urinalysis (07/23/18) Urine Culture (07/23/18) Protime With Inr (07/23/18) Partial Thromboplastin Time (07/23/18) Chest 1 View, Ap/Pa Only (07/23/18) Saline Lock/Iv-Start (07/23/18) Saline Lock/Iv-Start (07/23/18) Vital Signs Adult Sepsis Patie Q15M (07/23/18) O2 (07/23/18:) Remove Rings In Anticipation O (07/23/18) Lactic Acid Analyzer (07/23/18) Ns Iv 1000 Ml (Sodium Chloride 0.9%) (07/23/18:) Piperacillin Sodium/Tazobactam (Zosyn Vi (07/23/18 19:30) Ketorolac Injection (Toradol Injection) (07/23/18 19:30) Lipase (07/23/18 19:46) Iohexol Injection (Omnipaque 350 Mg/Ml 1 (07/23/18 20:00) Ns (Ivpb) (Sodium Chloride 0.9%) (07/23/18 20:00) Hcg,Qualitative Serum (07/23/18 20:09) Medications Given in ED Current Medications Medications Dose Ordered Sig/Linda Route Start Time Stop Time Status Last Admin Dose Admin Iohexol 100 ml ONCE ONCE IV 07/23/18 20:00 07/23/18 20:05 DC 07/23/18 20:44 100 ML Sodium Chloride 250 ml ONCE ONCE IV 07/23/18 20:00 07/23/18 20:05 DC 07/23/18 20:44 80 ML Vital Signs/I&O 07/23/18 19:21 Temp 99.6 Pulse 116 Resp 18 B/P (MAP) 151/98 (115) Pulse Ox 98 O2 Delivery Room Air Progress Progress Note : Time: 19:40 Progress Note Toradol, 2 L of fluid which is more than 20 cc/kg with an estimated weight of [address] of the abdomen pelvis with contrast, septic workup. Diagnostic Imaging Diagonstic Imaging: CT (with contrast) Plain Films/CT/US/NM/MRI: abdomen, pelvis Comments VIA [facility]. [place] NAME: ANH SIMON [facility] REC#: [id number] PT STATUS: REG ER : 1975 PHYSICIAN: REYMUNDO MENDOZA MD ADMIT DATE: 07/23/18/ER Draft Date of Exam:07/23/18 CT ABDOMEN/PELVIS W PROCEDURE: CT abdomen and pelvis with contrast. TECHNIQUE: Multiple contiguous axial images were obtained through the abdomen and pelvis after administration of intravenous contrast. INDICATION: Abdominal pain. Nausea and vomiting. COMPARISON: None available. FINDINGS: Lower chest: The lung bases are clear. No pericardial or pleural effusion. Peritoneum: No free intraperitoneal air or fluid. Liver and biliary system: The liver is normal. The gallbladder is normal. No biliary duct dilation. Spleen and Pancreas: Spleen is normal. The pancreas enhances normally without mass lesion or peripancreatic inflammatory changes. Adrenals: Normal. tract: The kidneys enhance normally without suspicious mass or obstruction. Urinary bladder is distended without wall thickening. Uterus and ovaries are normal in appearance. A dominant right ovarian follicle measures 2.1 x 2.1 cm. GI tract: Stomach is decompressed. In the right lower quadrant, the terminal ileum has abnormal low-attenuation wall thickening. Additionally, stranding is present in the right lower quadrant mesentery which appears to result in central traction upon the abnormally thickened ileal loops. There is no resultant bowel obstruction. Vasculature and Lymph nodes: Normal caliber aorta. No abdominal or pelvic lymphadenopathy. Musculoskeletal: No concerning osseous lesion. IMPRESSION: 1. Abnormal low-attenuation wall thickening of the terminal ileum is likely due to chronic inflammatory process, potentially Crohn's disease. There is central stranding in the mesentery around the abnormal terminal ileum, this is likely from adherent scar tissue between bowel loops. However, there is no bowel obstruction. There is a possibility this soft tissue attenuation in the right lower quadrant mesentery could represent a mesenteric carcinoid tumor. If outside imaging is not available for comparison, a follow-up CT in 3 months is advised for reassessment. Dictated on workstation # [id number] Dict: 07/23/182121 Trans: 07/23/182128 [facility] [id number] Interpreted by: RADHA MCDONALD MD Electronically signed by: Reviewed: Reviewed by Me Diagonstic Imaging: Xray Comments VIA [facility]. [place] NAME: ANH SIMON [facility] REC#: [id number] PT STATUS: REG ER : 1975 PHYSICIAN: REYMUNDO MENDOZA MD ADMIT DATE: 07/23/18/ER Draft Date of Exam:07/23/18 CHEST 1 VIEW, AP/PA ONLY CHEST 1 VIEW, AP/PA ONLY INDICATION: Upper abdominal pain and nausea. COMPARISON: None available. FINDINGS: No focal airspace disease in the visualized lungs. Please note that the posterior lower lobes are poorly evaluated by portable radiography. No pleural effusion or pneumothorax. Normal cardiomediastinal silhouette. No pneumoperitoneum on pseudo upright imaging. Impression: No acute cardiopulmonary process by portable radiography. Dictated on workstation # [id number] Dict: 07/23/182038 Trans: 07/23/182050 [facility] [id number] Interpreted by: RADHA MCDONALD MD Electronically signed by: Departure Impression Primary Impression: Colitis Disposition: 01 HOME, SELF-CARE Condition: Improved Departure-Patient Inst. Decision time for Depature: 22:09 Referrals: DARON GOVEA MD (PCP/Family) Primary Care Physician MARCIO HERRERA DO Patient Instructions: [id number] Add. 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 Drink plenty of fluids and go on a full liquid diet for the next 2 days. If you have nausea you can take one tablet of Zofran every 6 hours. If you have pain you can take the Tylenol 1000 g every 8 hours in addition to ibuprofen 800 mg every 8 hours and finally the hydrocodone one tablet every 6 hours as needed for breakthrough pain. Tomorrow morning call Dr. Herrera and request an appointment to be seen. Scripts Metronidazole (Flagyl) 500 Mg Tablet 500 MG PO Q8H for 7 Days, #21 TAB 0 Refills Prov: REYMUNDO MENDOZA 07/23/18 Copy Copies To 1: MARCIO HERRERA TITUS J Jul 23, 2018 19:39
[2018-07-23 19:55] LABS: BASOPHILS % (AUTO) 0 % (0-10); EOSINOPHILS # (AUTO) 0.1 10^3/uL (0.0-0.3); EOSINOPHILS % (AUTO) 3 % (0-10); HEMATOCRIT 36 % (35-52); HEMOGLOBIN 12.1 G/DL (11.5-16.0); LYMPHOCYTES # (AUTO) 0.5 X 10^3 (1.0-4.0); LYMPHOCYTES % (AUTO) 14 % (12-44); MEAN CORPUSCULAR HEMOGLOBIN 30 PG (25-34); MEAN CORPUSCULAR HGB CONC 33 G/DL (32-36); MEAN CORPUSCULAR VOLUME 89 FL (80-99); MEAN PLATELET VOLUME 9.4 FL (7.4-10.4); MONOCYTES # (AUTO) 0.4 X 10^3 (0.0-1.0); MONOCYTES % (AUTO) 11 % (0-12); NEUTROPHILS # (AUTO) 2.9 X 10^3 (1.8-7.8); NEUTROPHILS % (AUTO) 72 % (42-75); PLATELET COUNT 436 10^3/uL (130-400); RED BLOOD COUNT 4.08 10^6/uL (4.35-5.85); RED CELL DISTRIBUTION WIDTH 13.8 % (10.0-14.5)
[2018-07-23] MEDS ORDERED: IOHEXOL 350 MG/ML 100 ML (OMNIPAQUE 350) VIAL IV ONE (20:00)
[2018-07-23] MEDS ORDERED: NS 250 ML (IVPB) BAG IV ONE (20:00)
[2018-07-23 20:13] LABS: ALANINE AMINOTRANSFERASE 46 U/L (0-55); ALBUMIN 3.4 GM/DL (3.2-4.5); ALKALINE PHOSPHATASE 84 U/L (40-136); BILIRUBIN,TOTAL 0.3 MG/DL (0.1-1.0); BUN/CREATININE RATIO 11; CALCIUM 8.5 MG/DL (8.5-10.1); CARBON DIOXIDE 22 MMOL/L (21-32); CHLORIDE 106 MMOL/L (98-107); CREATININE SERUM 0.83 MG/DL (0.60-1.30); GFR ESTIMATED > 60; GLUCOSE 119 MG/DL (70-105); LIPASE 41 U/L (8-78); POTASSIUM 3.3 MMOL/L (3.6-5.0); SODIUM 140 MMOL/L (135-145); TOTAL PROTEIN 6.5 GM/DL (6.4-8.2)
[2018-07-23 20:15] LABS: PROTHROMBIN TIME PATIENT 13.4 SEC (12.2-14.7)
--- NOTE | 2018-07-23 20:52 | Diagnostic Imaging Report ---
CHEST 1 VIEW, AP/PA ONLY INDICATION: Upper abdominal pain and nausea. COMPARISON: None available. FINDINGS: No focal airspace disease in the visualized lungs. Please note that the posterior lower lobes are poorly evaluated by portable radiography. No pleural effusion or pneumothorax. Normal cardiomediastinal silhouette. No pneumoperitoneum on pseudo upright imaging. Impression: No acute cardiopulmonary process by portable radiography. Dictated by: Dictated on workstation # [id number]
[2018-07-23 21:25] LABS: BILIRUBIN,URINE NEGATIVE (NEGATIVE); COLOR,URINE YELLOW; GLUCOSE, URINE (UA) NEGATIVE (NEGATIVE); KETONES,URINE NEGATIVE (NEGATIVE); LEUKOCYTE ESTERASE ,URINE 1+ (NEGATIVE); NITRITE,URINE NEGATIVE (NEGATIVE); PH,URINE 6 (5-9); PROTEIN,URINE 3+ (NEGATIVE); UROBILINOGEN,URINE NORMAL (NORMAL)
--- NOTE | 2018-07-23 21:30 | Diagnostic Imaging Report ---
PROCEDURE: CT abdomen and pelvis with contrast. TECHNIQUE: Multiple contiguous axial images were obtained through the abdomen and pelvis after administration of intravenous contrast. INDICATION: Abdominal pain. Nausea and vomiting. COMPARISON: None available. FINDINGS: Lower chest: The lung bases are clear. No pericardial or pleural effusion. Peritoneum: No free intraperitoneal air or fluid. Liver and biliary system: The liver is normal. The gallbladder is normal. No biliary duct dilation. Spleen and Pancreas: Spleen is normal. The pancreas enhances normally without mass lesion or peripancreatic inflammatory changes. Adrenals: Normal. tract: The kidneys enhance normally without suspicious mass or obstruction. Urinary bladder is distended without wall thickening. Uterus and ovaries are normal in appearance. A dominant right ovarian follicle measures 2.1 x 2.1 cm. GI tract: Stomach is decompressed. In the right lower quadrant, the terminal ileum has abnormal low-attenuation wall thickening. Additionally, stranding is present in the right lower quadrant mesentery which appears to result in central traction upon the abnormally thickened ileal loops. There is no resultant bowel obstruction. Vasculature and Lymph nodes: Normal caliber aorta. No abdominal or pelvic lymphadenopathy. Musculoskeletal: No concerning osseous lesion. IMPRESSION: 1. Abnormal low-attenuation wall thickening of the terminal ileum is likely due to chronic inflammatory process, potentially Crohn's disease. There is central stranding in the mesentery around the abnormal terminal ileum, this is likely from adherent scar tissue between bowel loops. However, there is no bowel obstruction. There is a possibility this soft tissue attenuation in the right lower quadrant mesentery could represent a mesenteric carcinoid tumor. If outside imaging is not available for comparison, a follow-up CT in 3 months is advised for reassessment. Dictated by: Dictated on workstation # [id number]
[2018-07-23 21:36] LABS: BACTERIA,URINE FEW /HPF; CLARITY,URINE CLEAR; RBC,URINE 0-2 /HPF
[2018-07-23] MEDS ORDERED: METR500T PO (22:13)
[2018-07-23] MEDS ORDERED: metroNIDAZOLE 500 MG (FLAGYL) TAB PO ONE (22:15)
[2018-07-23] MEDS ORDERED: KETOROLAC 30 MG/ML VIAL ONE (22:24)
[2018-07-23] MEDS ORDERED: PIPERACILLIN/TAZO 4.5 GM VIAL (ZOSYN) IV ONE (22:24)
[2018-07-23 23:50] VITALS: BP 139/89
[2018-07-23] MEDS ORDERED: ACHD5005 PO (23:55)
== END 2018-07-24 00:02 | disposition home or self-care (01) ==
LOC: EDUNIT# 19:12 → ER 19:13
DX: K52.9 Noninfective gastroenteritis and colitis, unspecified (principal); G80.9 Cerebral palsy, unspecified; Z88.5 Allergy status to narcotic agent
CPT/HCPCS: 36415; 71045; 74177; 80053; 81000; 83605; 83690; 84703; 85025; 85610; 85730; 87040; 87088

== ENCOUNTER → 2018-11-08 | Outpatient (CLI) | payer MEDICARE, MEDICAID ==
[~2018-11-08] MED LIST changes: +NS 100 ML (IVPB) BAG IV ONE; +RECEIVED CONTRAST (Hold Metformin) IV SCH
[2018-11-08 11:56] LABS: HEMOGLOBIN 11.3 G/DL (11.5-16.0); MEAN PLATELET VOLUME 9.2 FL (7.4-10.4); RED BLOOD COUNT 4.08 10^6/uL (4.35-5.85); RED CELL DISTRIBUTION WIDTH 14.2 % (10.0-14.5); WHITE BLOOD COUNT 10.3 10^3/uL (4.3-11.0)
[2018-11-08 12:17] LABS: ALANINE AMINOTRANSFERASE 17 U/L (0-55); ALBUMIN 3.5 GM/DL (3.2-4.5); ALKALINE PHOSPHATASE 78 U/L (40-136); BILIRUBIN,TOTAL 0.5 MG/DL (0.1-1.0); BUN/CREATININE RATIO 10; CALCIUM 8.8 MG/DL (8.5-10.1); CARBON DIOXIDE 23 MMOL/L (21-32); CHLORIDE 105 MMOL/L (98-107); CREATININE SERUM 0.88 MG/DL (0.60-1.30); GFR ESTIMATED > 60; GLUCOSE 90 MG/DL (70-105); POTASSIUM 3.7 MMOL/L (3.6-5.0); SODIUM 139 MMOL/L (135-145); TOTAL PROTEIN 7.1 GM/DL (6.4-8.2)
[2018-11-08] MEDS: IOHEXOL 350 MG/ML 100 ML (OMNIPAQUE 350) VIAL IV ONE (12:24)
--- NOTE | 2018-11-08 13:11 | Diagnostic Imaging Report ---
PROCEDURE: CT abdomen and pelvis with contrast. TECHNIQUE: Multiple contiguous axial images were obtained through the abdomen and pelvis after administration of intravenous contrast. DATE: November 08, 2018. COMPARISON: July 23, 2018. INDICATION: 43-year-old female, left upper quadrant abdominal pain. FINDINGS: The visualized portions of the lung bases are clear. The heart is not enlarged. There is no identified pericardial effusion. The liver is normal in size and contour. There is no identified liver lesion. The gallbladder is unremarkable. There is no intrahepatic or extrahepatic bile duct dilation. The main pancreatic duct is not abnormally dilated. Unremarkable appearance of the pancreatic parenchyma. The spleen is normal in size. The adrenal glands are unremarkable. Unremarkable appearance of the renal parenchyma. The urinary collecting systems are not distended. There is no identified renal or ureteral stone. The urinary bladder is underdistended but grossly unremarkable in appearance. There is prominent abnormal wall thickening of small bowel segments in the right lower quadrant best seen on axial image 51 and adjacent sequential images. There is distortion and tethering in this region perhaps best illustrated on axial image 52 and adjacent sequential images there is a gas and fluid containing focus which appears to be most likely extraluminal on axial image 42 and measures approximately 1.7 x 1.8 cm in axial dimension. There is a subjacent focal area of gas and fluid on axial image 44 which measures 1.3 x 1.1 cm in size and may also be extraluminal in location. These areas of abnormality do extend adjacent to small bowel segments. There is also abnormal soft tissue attenuation and stranding centered in this region. There is known prominent dilation of bowel proximal to the area of abnormality or otherwise noted gross distention of the intestinal tract. The appendix is best identified on axial image 55 and adjacent sequential images. There is no evidence of acute appendicitis. The small bowel wall thickening and abnormal findings appear to be centered in the region of the terminal ileum and distal ileum. There is no additional identified bowel wall thickening. There is a small amount of free pelvic fluid. There is no free intraperitoneal air. There are mildly prominent mesenteric lymph nodes such as on axial image 43 measuring up to approximately 8 mm in short axis and an additional adjacent lymph node on axial image 46 which measures 10 mm in short axis. There is no additional identified abnormally enlarged lymph node within the abdomen or pelvis. There is transitional lumbosacral anatomy. If spinal intervention is to be performed in the future, recommend careful correlation with levels. There are bilateral L5 pars interarticularis defects with grade 1 anterolisthesis of L5 on S1 measuring 6.7 mm. There is severe disc height loss at L5-S1. IMPRESSION: CT ABDOMEN AND PELVIS. 1. Prominent abnormal wall thickening of small bowel segments in the right lower quadrant involving the terminal ileum and distal ileum with distortion of small bowel segments in this area and central areas of gas and fluid attenuation as well as abnormal soft tissue attenuation. There is present on prior exam although the current findings do appear more prominent. Differential diagnostic considerations would include findings relating to an infectious or inflammatory enteritis with interloop abscess formation. A carcinoid tumor would also be in the differential diagnosis. Further evaluation for definitive diagnosis recommended. 2. No free intraperitoneal air. 3. No evidence of bowel obstruction. 4. Bilateral L5 pars interarticularis defects with grade 1 anterolisthesis of L5 on S1. 5. Small amount of free pelvic fluid. Report faxed to TEJA Helms at 1:11 p.m. 11/08/2018/piper Dictated by: Dictated on workstation # [id number]
== END ==
LOC: RAD 11:45
PROVIDERS: ATTEND Nurse Practitioner Family
DX: K63.89 Other specified diseases of intestine (principal); M43.17 Spondylolisthesis, lumbosacral region; R10.12 Left upper quadrant pain
CPT/HCPCS: 36415; 74177; 80053; 85027

== ENCOUNTER → 2018-12-17 | Outpatient (CLI) | payer MEDICARE, MEDICAID ==
[~2018-12-17] MED LIST changes: +DIATRIZOATE MEGLUM/SODIUM 37% 120 ML (GASTROGRAFIN) PO ONE; -NS 100 ML (IVPB) BAG IV ONE; -RECEIVED CONTRAST (Hold Metformin) IV SCH
--- NOTE | 2018-12-17 12:48 | Diagnostic Imaging Report ---
INDICATION: Abnormal recent CT scan. Study is performed for further evaluation. COMPARISON: Correlation is made with prior CT from 11/08/2018. TECHNIQUE: Patient was administered 120 mL of Gastrografin contrast with 120 mL of water and serial radiographs of the abdomen were obtained. FINDINGS: Preliminary radiograph of the abdomen does show some mildly prominent gas-filled central small bowel loops. There is gas throughout the colon. Postingestion images demonstrate normal progression of contrast through the small bowel. Contrast does appear to reach the colon at 45 minutes. Therefore, no complete obstruction is seen. No mass lesion is identified. Right colon has a normal appearance. IMPRESSION: No evidence of small bowel obstruction. Dictated by: Dictated on workstation # [id number]
== END ==
LOC: RAD 07:53
PROVIDERS: ATTEND Surgery
DX: R19.7 Diarrhea, unspecified (principal)
CPT/HCPCS: 74250

== ENCOUNTER 2018-12-30 10:45 | Outpatient (CLI) | payer MEDICARE, MEDICAID ==
[~2018-12-30] VITALS: Ht 157.5 cm; Wt 90.7 kg
[~2018-12-30 10:45] MED LIST changes: -DIATRIZOATE MEGLUM/SODIUM 37% 120 ML (GASTROGRAFIN) PO ONE
[2018-12-30] MEDS ORDERED: LEVE500T99 PO (11:01)
[2018-12-30] MEDS ORDERED: NORG1TAB15 PO (11:01)
[2018-12-30] MEDS ORDERED: NORG1TAB7 PO (13:34)
== END 2018-12-30 11:06 ==
LOC: PREOP 10:45
PROVIDERS: ATTEND Surgery
DX: Z01.818 Encounter for other preprocedural examination (principal)

== ENCOUNTER 2019-01-01 08:40 | Inpatient (IN) | payer MEDICARE, MEDICAID ==
--- NOTE | 2018-12-30 13:35 | NUR ---
MEDICATIONS WERE ENTERED BY PREOP NURSE, I CALLED [facility] TO VERIFY STRENGTHS AND FILL DATES. [facility] FILLED: 11-15-18 KEPPRA 500MG 1/2 BID #90 10-16-18 ORTHO TRI CYCLEN DAILY #84
[~2019-01-01] VITALS: Ht 157.5 cm; Wt 90.7 kg
[~2019-01-01 08:40] MED LIST changes: +LEVE500T99 PO; +NORG1TAB15 PO; +NORG1TAB7 PO
[2019-01-01 09:00] VITALS: BP 135/84
[2019-01-01] MEDS ORDERED: ceFAZolin 2 GM IV Premixed 50 ML IV ONE ×2 (09:00→14:30)
[2019-01-01] MEDS ORDERED: metroNIDAZOLE 500MG/100ML IVPB 100 ML IV ONE ×2 (09:00→14:45)
[2019-01-01] MEDS ORDERED: BUP/EPI 0.5% 1:200,000 (SENSORCAINE) 30 ML VIAL ONE (09:23)
[2019-01-01] MEDS: LACTATED RINGERS 1,000 ML IV PRN ×3 (09:45→13:20)
[2019-01-01 09:58] LABS: BASOPHILS # (AUTO) 0.1 10^3/uL (0.0-0.1); BASOPHILS % (AUTO) 1 % (0-10); EOSINOPHILS # (AUTO) 0.1 10^3/uL (0.0-0.3); EOSINOPHILS % (AUTO) 2 % (0-10); HEMATOCRIT 37 % (35-52); HEMOGLOBIN 12.1 G/DL (11.5-16.0); LYMPHOCYTES # (AUTO) 0.6 X 10^3 (1.0-4.0); LYMPHOCYTES % (AUTO) 11 % (12-44); MEAN CORPUSCULAR HEMOGLOBIN 29 PG (25-34); MEAN CORPUSCULAR HGB CONC 33 G/DL (32-36); MEAN CORPUSCULAR VOLUME 87 FL (80-99); MEAN PLATELET VOLUME 9.6 FL (7.4-10.4); MONOCYTES # (AUTO) 0.3 X 10^3 (0.0-1.0); MONOCYTES % (AUTO) 6 % (0-12); NEUTROPHILS # (AUTO) 4.8 X 10^3 (1.8-7.8); NEUTROPHILS % (AUTO) 81 % (42-75); PLATELET COUNT 478 10^3/uL (130-400); RED CELL DISTRIBUTION WIDTH 16.8 % (10.0-14.5); WHITE BLOOD COUNT 5.9 10^3/uL (4.3-11.0)
--- NOTE | 2019-01-01 09:59 | Progress Note-Pre Operative ---
Pre-Operative Progress Note H&P Reviewed The H&P was reviewed, patient examined and no changes noted. Date Seen by Provider: Dec 12, 2018 Time Seen by Provider: 11:20 Date H&P Reviewed: Jan 01, 2019 Time H&P Reviewed: 09:00 Pre-Operative Diagnosis: mass of small bowel RAMÓN ANNE MD Jan 01, 2019 09:59
[2019-01-01] MEDS ORDERED: ROCURONIUM 10 MG/ML 5 ML SYRINGE IV ONE ×2 (10:09→12:51)
[2019-01-01] MEDS ORDERED: fentaNYL INJECTION 100 MCG/2 ML AMP ONE ×3 (10:09→13:17)
[2019-01-01] MEDS ORDERED: MIDAZOLAM 2 MG/2 ML (VERSED) VIAL ONE (10:09)
[2019-01-01] MEDS ORDERED: ONDANSETRON 4 MG/2 ML (SDV) Z0FRAN ONE (10:09)
[2019-01-01] MEDS ORDERED: proPOfol 200 MG/20 ML (DIPRIVAN) VIAL IV ONE (10:09)
[2019-01-01] MEDS ORDERED: LIDOCAINE PF 2% 5 ML (XYLOCAINE) VIAL ONE (10:09)
[2019-01-01] MEDS ORDERED: SEVOFLURANE (ULTANE) 15 ML INHAL SOLN ONE ×17 (10:12→14:15)
[2019-01-01] MEDS ORDERED: NEOSTIGMINE 1 MG/ML 5 ML SYRINGE ONE (13:38)
[2019-01-01] MEDS ORDERED: GLYCOPYRROLATE 0.2 MG/ML (ROBINUL) 2 ML VIAL ONE (13:38)
[2019-01-01] MEDS ORDERED: BUPIVACAINE 0.5% 30 ML (SENSORCAINE) VIAL ONE (14:08)
[2019-01-01] MEDS ORDERED: metroNIDAZOLE 500MG/100ML IVPB 100 ML ONE (14:28)
[2019-01-01] MEDS ORDERED: ceFAZolin INJECTION 2,000 MG ONE (14:28)
--- NOTE | 2019-01-01 14:31 | Operative Report ---
Operative Report Date of Procedure/Surgery Jan 01, 2019 Surgeon (s) RAMÓN ANNE MD Purse Framer (s): Karla Morales (Med Student III) Post-Operative Diagnosis Mass of terminal ileum with proximal small bowel dilatation, possible Crohn's disease stricture. Thickened and fat wrapped small bowel mesentery Procedure Performed Robotic assisted, converted to open right hemicolectomy with anastomosis Description of Procedure Anesthesia Type: General Estimated blood loss (mL): 50 mL Specimen(s) collected/removed Distal small bowel and right colon Description of the Procedure Indication for the procedure: Evaluation for 3 months history of lower abdominal pain and altered bowel habits, revealed a mass involving the distal small bowel with thickening of the bowel wall, concerning for an inflammatory stricture. Due to ongoing symptoms, it is felt reasonable to proceed with resection, using minimally invasive technique. The potential for conversion to an open technique was also highlighted. With regard to the operative procedure , expected recovery, complications of postoperative wound infection, anastomotic leak and cardiorespiratory dysfunction were discussed with her and her family. Informed consent was obtained. Description of the procedure: She was placed supine on the operative table and general anesthesia induced. 2 g of Ancef and 500 mg of Flagyl were administered intravenously as prophylaxis against wound infection. Sequential compression devices were placed around her legs, to minimize the risk of venous thrombosis. A Saldana catheter was placed to monitor the urine output during the perioperative period. Abdomen was prepared and draped in the usual sterile manner. Pneumoperitoneum was established using a Veress needle introduced inferior lateral to the umbilicus, along the left side. Intra-abdominal pressure was maintained at 17 mmHg. A 12 mm trocar was placed and anatomy visualized using the high definition, 3-dimensional laparoscope, associated with da Ruby system. A diffuse mass involving the distal small bowel was identified. Under direct view , I placed a 12 mm trocar to facilitate using the robotic stapler over the left side of the abdomen, followed by an 8 mm trocar over the suprapubic region. An additional 8 mm trocar was placed over the epigastric region, to facilitate using the third robotic arm. The patient was turned and slight Trendelenburg position, with the right side tilted up and the robotic system docked in place. The mass involving the small bowel was gently using the vessel sealing device, leading to dilated proximal small bowel. The mass was densely adherent to the cecum and therefore resecting with a standard right colectomy colectomy was felt to be reasonable. Adequate progress could not be made using laparoscopic approach due to the dense nature of the small bowel mesentery and therefore, I elected to convert to an open procedure. A midline incision was made. Right colon was mobilized along the congenital white line of Toldt, protecting the duodenum. The mass appeared to involving the distal ileum, for about 18 inches in length. There was considerable thickening of the mesentery. In addition, the proximal ileum was slightly dilated, due to impending partial small bowel obstruction. The proximal transverse colon was isolated and transected using a MAGDA, 75 mm stapler. The staple line had excellent blood supply. Mid ileum was transected using the same device, just proximal to the dilated small bowel. The mesentery of the involved ileum was controlled using Harmonic scalpel and 0 silk ties. The right colic artery was preserved, ileocolic vessel being taken down. The specimen was sent fresh for pathological examination. A [id number] anastomosis was created within the small bowel and the proximal transverse colon using an Endo MAGDA, 75 mm stapler. The common enterotomy was closed using a TA 60 stapler. A 3-0 suture was placed along the crotch of the staple line to wide tension. The staple line along the enterotomy was reinforced with Ligaclips and interrupted 3-0 silk sutures. There was no tension and perfusion appeared to be adequate. Abdomen was irrigated with 2 L of warm saline and the fascia closed using #2 Prolene. Subcutaneous tissues approximated using 3-0 Vicryl and skin using 4-0 Vicryl, in a subcutaneous fashion. By the trocar incisions were closed using 4- 0 Vicryl, in a subcutaneous tumor fashion. At the end of the procedure, our anesthesia team performed a TAP block to facilitate postoperative pain management. She tolerated the procedure well, was extubated in the operative room and taken to the recovery room in a stable condition. Findings of the Procedure See operative report Allergies and Home Medications Allergies Coded Allergies: codeine (Verified Allergy, Severe, psych, 12/30/18) Home Medications Levetiracetam 500 Mg Tablet, 250 MG PO BID, (Reported) TAKES 1/2 (500MG) TABLET Norgestimate-Ethinyl Estradiol 1 Each Tablet, 1 TAB PO DAILY, (Reported) Patient Home Medication List Home Medication List Reviewed: Yes RAMÓN ANNE MD Jan 01, 2019 14:31
[2019-01-01] MEDS ORDERED: LACTATED RINGERS 1,000 ML IV PRN (14:32)
[2019-01-01] MEDS ORDERED: NS IV 1000 ML 1,000 ML IV SCH (14:32)
[2019-01-01] MEDS ORDERED: ONDANSETRON 4 MG/2 ML (SDV) Z0FRAN IV PRN (14:45)
[2019-01-01] MEDS ORDERED: ONDANSETRON 4 MG/2 ML (SDV) Z0FRAN IVP PRN ×2 (14:45→15:30)
[2019-01-01] MEDS ORDERED: diphenhydrAMINE 50 MG/ML INJ (BENADRYL) IV PRN (14:45)
[2019-01-01] MEDS ORDERED: fentaNYL INJECTION 1,000 MCG in NS (IVPB) 80 ML IV SCH (14:45)
[2019-01-01] MEDS ORDERED: METOCLOPRAMIDE INJ 10 MG/2 ML (REGLAN) IV PRN (14:45)
[2019-01-01] MEDS ORDERED: NALOXONE 0.4 MG/ML 1 ML (NARCAN) VIAL IV PRN (14:45)
[2019-01-01] MEDS ORDERED: PROMETHAZINE INJ 25 MG/ML (PHENERGAN) AMP IVP ONE (15:30)
[2019-01-01] MEDS ORDERED: HYDROmorphone 2 MG/ML VIAL (DILAUDID) IV ONE (15:30)
[2019-01-01] MEDS ORDERED: morphine INJ 10 MG/ML 1ML (SYR OR VIAL) IVP ONE (15:30)
[2019-01-01] MEDS ORDERED: MEPERIDINE (DEMEROL) INJ 50 MG/ML IVP ONE (15:30)
[2019-01-01] MEDS ORDERED: morphine INJ 10 MG/ML 1ML (SYR OR VIAL) ONE (15:37)
--- NOTE | 2019-01-01 16:20 | NUR ---
ANH SIMON admitted to room 418-1, with an admitting diagnosis of s/p bowel surgery, on 01/01/19 from PACU via bed, accompanied by staff and mother.ANH SIMON/mother introduced to surroundings, call light, bed controls, phone, TV, temperature control, lights, meal times, smoking policy, visitor policy, side rail policy, bathrooms and showers. Patient Rights given to patient in the handbook. ANH SIMON verbalizes understanding that [facility] is not responsible for the loss or damage to any personal effects or valuables that are kept in the patients posession during their hospitalization. The Patient's Care Plans were discussed with the patient as well as Discharge Planning. ANH SIMON verbalizes understanding of Interdisciplinary Patient Education. Patient and/or family were informed about the Rapid Response Team and its purpose.
[2019-01-01 16:25] VITALS: BP 144/81
[2019-01-01] MEDS ORDERED: CATHETER FLUSH 10 ML SYR IV PRN (17:15)
[2019-01-01] MEDS ORDERED: PATIENT MAY USE OWN MEDS, ALL MC SCH (18:30)
[2019-01-01 19:56] VITALS: BP 125/75
[2019-01-01] MEDS ORDERED: LEVETIRACETAM 500 MG (KEPPRA) TAB PO SCH (21:00)
[2019-01-01] MEDS ORDERED: LEVETIRACETAM 250 MG PO SCH (21:00)
[2019-01-01] MEDS: LEVETIRACETAM 500 MG (KEPPRA) TAB PO SCH (21:08)
[2019-01-02] VITALS (7 sets, daily range): BP systolic 103–133; BP diastolic 65–79
[2019-01-02] MEDS: ceFAZolin INJECTION 1,000 MG in WATER (STERILE) FOR INJECTION 10 ML IV SCH ×2 (00:28→08:08)
[2019-01-02] MEDS: metroNIDAZOLE 500MG/100ML IVPB 100 ML IV SCH ×2 (00:49→08:09)
[2019-01-02 06:13] LABS: BASOPHILS % (AUTO) 0 % (0-10); EOSINOPHILS % (AUTO) 0 % (0-10); HEMATOCRIT 32 % (35-52); HEMOGLOBIN 10.2 G/DL (11.5-16.0); LYMPHOCYTES # (AUTO) 0.5 X 10^3 (1.0-4.0); LYMPHOCYTES % (AUTO) 5 % (12-44); MEAN CORPUSCULAR HEMOGLOBIN 28 PG (25-34); MEAN CORPUSCULAR HGB CONC 32 G/DL (32-36); MEAN CORPUSCULAR VOLUME 89 FL (80-99); MEAN PLATELET VOLUME 10.2 FL (7.4-10.4); MONOCYTES # (AUTO) 1.2 X 10^3 (0.0-1.0); MONOCYTES % (AUTO) 11 % (0-12); NEUTROPHILS % (AUTO) 84 % (42-75); PLATELET COUNT 426 10^3/uL (130-400); WHITE BLOOD COUNT 10.7 10^3/uL (4.3-11.0)
[2019-01-02 07:02] LABS: LYMPHOCYTES % (MANUAL) 3 %; MONOCYTES % (MANUAL) 9 %; NEUTROPHILS % (MANUAL) 88 %
[2019-01-02] MEDS: SENNA W/DOCUSATE (SENOKOT S) TABLET PO SCH (08:08)
[2019-01-02] MEDS: LEVETIRACETAM 500 MG (KEPPRA) TAB PO SCH ×3 (08:08→20:07)
--- NOTE | 2019-01-02 08:14 | Consultation ---
History of Present Illness History of Present Illness Patient Consulted On(todd/time) 01/02/19 08:11 Date Seen by Provider: Jan 02, 2019 Time Seen by Provider: 08:11 Reason for Visit: RECURRENT ABDOMINAL PAIN WITH SMALL BOWEL STRICTURE History of Present Illness PT IS A 43 Y/O FEMALE WHO IS WELL KNOWN TO ME FROM CLINIC. SHE HAS BEEN HAVING RECURRENT ABDOMINAL PAIN - A SCAN REVEALED A SMALL BOWEL STRICTURE AND SHE WAS REFERRED TO DR. ANNE WHO RECOMMENDED SURGICAL INTERVENTION AND REMOVAL OF THE AFFECT PORTION OF SMALL BOWEL. ANH WAS TAKEN TO SURGERY YESTERDAY WITH SUCCESSFUL LESION REMOVAL AND REANASTOMOSIS. Allergies and Home Medications Allergies Coded Allergies: codeine (Verified Allergy, Severe, psych, 12/30/18) metoclopramide (Verified Adverse Reaction, Intermediate, RASH, 01/03/19) extrapyramidal symptoms - moderate Home Medications Levetiracetam 500 Mg Tablet, 250 MG PO BID, (Reported) TAKES 1/2 (500MG) TABLET Norgestimate-Ethinyl Estradiol 1 Each Tablet, 1 TAB PO DAILY, (Reported) Patient Home Medication List Home Medication List Reviewed: Yes Past [id number]-Uexmbp Hx Past Med/Social Hx: Reviewed Nursing Past Med/Soc Hx, Reviewed and Corrections made Patient Social History Alcohol Use: Denies Use Recreational Drug Use: No Smoking Status: Never a Smoker 2nd Hand Smoke Exposure: No Recent Foreign Travel: No Contact w/Someone Who Travel: No Recent Infectious Disease Expo: No Recent Hopitalizations: No Physical Abuse: No Sexual Abuse: No Mistreated: No Fear: No Immunizations Up To Date Date of Influenza Vaccine: Jul 22, 2018 Seasonal Allergies Seasonal Allergies: Yes (MILD) Past Medical History Surgeries: Yes (EYES, ANKLE/LEG FX WITH PLATES) Respiratory: Yes (CHRONIC COUGH) Cardiac: No Neurological: Yes (NO SEIZURES SINCE 2008) Cerebral Palsy, Seizure Disorder Female Reproductive Disorders: Menstrual Problems Sexually Transmitted Disease: No HIV/AIDS: No Genitourinary: No Gastrointestinal: No (COLON MASS) Musculoskeletal: No Endocrine: No HEENT: No (GLASSES) Loss of Vision: Bilateral Cancer: No Psychosocial: Yes (MILD DEVELOPMENTAL DELAY) Anxiety Integumentary: No Blood Disorders: No Adverse Reaction/Blood Tranf: No (N/A) Family Medical History Reviewed and Corrections made Patient reports no known family medical history. Hypertension Review of Systems-General Constitutional: No chills, No fever, No malaise, No weakness EENTM: No hoarseness, No throat pain Respiratory: No cough, No dyspnea on exertion, No short of breath Cardiovascular: No chest pain, No palpitations Gastrointestinal: abdominal pain (RLQ); No nausea, No vomiting Genitourinary: no symptoms reported Musculoskeletal: muscle stiffness Skin: no symptoms reported Psychiatric/Neurological: Anxiety All Other Systems Reviewed Negative Unless Noted: Yes Physical Exam-General Problems Physical Exam Vital Signs Vital Signs - First Documented 01/01/19 01/01/19 09:00 14:20 Temp 98.7 Pulse 106 Resp 16 B/P (MAP) 135/84 Pulse Ox 95 O2 Delivery Room Air O2 Flow Rate 2.00 Capillary Refill : General Appearance: WD/WN, no apparent distress Eyes: Bilateral Eye Normal Inspection, Bilateral Eye PERRL HEENT: other (left eye with lateral gaze) Neck: non-tender, full range of motion, supple, normal inspection Respiratory: chest non-tender, lungs clear, normal breath sounds, no respiratory distress, no accessory muscle use Cardiovascular: regular rate, rhythm, no edema, no gallop, no JVD, no murmur Gastrointestinal: normal bowel sounds, soft, other (ventral surgical site with dressing in place - small amount of blood dried on dressing) Extremities: non-tender, no pedal edema, no calf tenderness, normal capillary refill Neurologic/Psychiatric: can crimper II-XII nml as tested, alert, normal mood/affect, oriented x 3 Skin: warm/dry Assessment/Plan Assessment/Plan Admission Diagnosis/Plan SMALL BOWEL STRICTURE CROHN'S DISEASE ABDOMINAL PAIN CEREBRAL PALSY HX OF SEIZURE DISORDER SMALL BOWEL STRICTURE DUE TO CROHN'S DISEASE - DEFER TO DR. ANNE AT THIS TIME - SHE IS POST OP DAY #1 - DOING WELL, DRINKING WELL, WILL CONTINUE IN THE HOSPITAL FOR SEVERAL MORE DAYS WE INCREASE FOOD INTAKE AND WAIT FOR BOWEL FUNCTION TO RESUME. ABDOMINAL PAIN - STABLE WITH IV PAIN MEDICATION. CEREBRAL PALSY WITH HX OF SEIZURE DISORDER - RESUME KEPPRA - MONITOR SYMPTOMS. Admission Status: Inpatient Order (span 2 midnights) Reason for Inpatient Admission: SMALL BOWEL RESECTION WITH NEED FOR MONITORING FOR 48-72 HOURS PRIOR TO DISCHARGE TO HOME Clinical Quality Measures DVT/VTE Risk/Contraindication: Risk Factor Score Per Nursin RFS Level Per Nursing on Admit: 4+=Very High DARON GOVEA MD 21, 2019 08:14
[2019-01-02] MEDS: KETOROLAC 15 MG/ML VIAL IVP PRN ×2 (08:55→15:42)
--- NOTE | 2019-01-02 08:55 | Anesthesia-General Post-Op ---
General Patient Condition Mental Status/LOC: Same as Preop Cardiovascular: Satisfactory Nausea/Vomiting: Absent Respiratory: Satisfactory Pain: Controlled Complications: Absent Post Op Complications Complications None Follow Up Care/Instructions Patient Instructions None needed. Anesthesia/Patient Condition Patient Condition Patient is doing well, no complaints, stable vital signs, no apparent adverse anesthesia problems. No complications reported per nursing. DARRYL BRAY CRNA Jan 02, 2019 08:55
[2019-01-02] MEDS ORDERED: NORGESTIMATE-ETHINYL ESTRADIOL 1 EACH TABLET PO SCH (09:00)
--- NOTE | 2019-01-02 12:35 | Physical Therapy Evaluation ---
PT Evaluation-General Medical Diagnosis Admission Date Jan 01, 2019 at 08:40 Medical Diagnosis: Colon Mass Onset Date: Jan 01, 2019 Therapy Diagnosis Therapy Diagnosis: debility Height/Weight Height (Feet): 5 Height (Inches): 2.00 Weight (Pounds): 200 Weight (Ounces): 0.0 Precautions Precautions/Isolations: Standard Precautions Referral Physician: Nicky Reason for Referral: Evaluation/Treatment Medical History Additional Medical History cerebral palsy/seizure disorder Current History recurrent abdominal pain/ s/p bowel resection Reviewed History: Yes Prior/Core FIM Prior Level of Function Therapy Code Descriptions/Definitions Functional [place] Measure: 0=Not Assessed/NA 4=Minimal Assistance 1=Total Assistance 5=Supervision or Setup 2=Maximal Assistance 6=Modified [place] 3=Moderate Assistance 7=Complete [place] Therapy Quality Codes: 6 Independent with activity with or without an assistive device 5 Patient requires set up or clean up by helper. Patient completes activity by themselves 4 Supervision or touching assist (CGA). Harriet provide cues , steadying assist 3 The helper provides less than half the effort to complete the activity 2 The helper provides more than half the effort to complete the activity 1 Dependent. The helper does all the effort to complete an activity 7 Patient refused to complete or attempt activity 9 The patient did not perform the activity before the current illness or injury 88 Not attempted due to Medical conditions or safety concerns Functional Abilities and Goals: Independent: Patient completed the activities by him/herself, with or without an assistive device, with no assistance from a helper. Needed Some Help: Patient needed partial assistance from another person to complete activities. Dependent: A helper completed the activities for the patient. Unknown: Not Applicable: Bed Mobility: 7 Transfers (B,C,W/C) (FIM): 7 Gait: 7 Indoor Mobility (Ambulation): Independent Stairs: Needed Some Help Prior Devices Use: None PT Evaluation-Current Subjective Patient and family agree to PT. Pain Numeric Pain Scale: 5-Moderate Pain Location: Medial Location Body Site: Abdomen Pain Description: Pressure, Acute Objective Patient Orientation: Person, Place, Time, Situation Problem Solving: Fair Attachments: IV ROM/Strength ROM Lower Extremities bilateral LE WFL Strength Lower Extremities bilateral LE WFL Integumentary/Posture Integumentary refer to nursing notes Bowel Incontinence: No Bladder Incontinence: No Posture WFL Neuromuscular (Tone, Coordination, Reflexes) cerebral palsy Sensory Vision: Functional Hearing: Functional Sensation Right Lower Extremit: Intact Sensation Left Lower Extremity: Intact Transfers Therapy Code Descriptions/Definitions Functional [place] Measure: 0=Not Assessed/NA 4=Minimal Assistance 1=Total Assistance 5=Supervision or Setup 2=Maximal Assistance 6=Modified [place] 3=Moderate Assistance 7=Complete [place] Transfers (B, C, W/C) (FIM): 5 Scootin Sit to/from Stand: 5 Gait Mode of Locomotion: Walk Anticipated Mode of Locomotion: Walk Gait (FIM): 4 Distance (FIM): 3=150 ft Distance: 250' Gait Level of Assist: 4 Gait Persons Needed: 1 Gait Assistive Device: None Comments/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 female, will be seen short term by skilled PT to address functional mobility to improve current LOF and to return to home with family at maximum LOF. Rehab Potential: Good PT Short Term Goals Short Term Goals Time Frame: Jan 08, 2019 Transfers (B,C,W/C) (FIM): 6 Gait (FIM): 7 Distance (FIM): 3=150 ft Gait Distance Comment: 200' Gait Level of Assist: 7 Gait Assistive Device: None PT Plan Problem List Problem List: Activity Tolerance, Balance, Gait Treatment/Plan Treatment Plan: Continue Plan of Care Treatment Plan: Bed Mobility, Education, Functional Activity Dandy, Functional Strength, Gait, Safety, Therapeutic Exercise, Transfers Treatment Duration: Jan 08, 2019 Frequency: 6 times per week Estimated Hrs Per Day: .25 hour per day Patient and/or Family Agrees t: Yes Discharge Recommendations Therapy D/C Recommendations: Home w/ Family Support Time/GCodes Time In: 1140 Time Out: 1154 Total Billed Treatment Time: 14 Total Billed Treatment 1 visit EVLowC 14 min SUZANNE MOODY PT Jan 02, 2019 12:35
[2019-01-02] MEDS: HYDROcodone/APAP 5 MG/325 MG (LORTAB) TAB PO PRN ×2 (14:08→18:04)
--- NOTE | 2019-01-02 15:34 | Progress Note-Standard ---
Standard Progress Note Progress Notes/Assess & Plan Date Seen by a Provider: Jan 02, 2019 Time Seen by a Provider: 15:32 Progress/Assessment & Plan patient became tearful without any specific symptoms out coming. Afebrile and vital signs are stable. Pain control adequate. Incisions dry. Findings in the requirement to convert to open laparotomy revealed with the patient and the family. Final Diagnosis mass of the small bowel RAMÓN ANNE MD Jan 02, 2019 15:34
--- NOTE | 2019-01-02 16:09 | NUR ---
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
[2019-01-02] MEDS ORDERED: LORazepam 0.5 MG (ATIVAN) TABLET ONE (17:55)
[2019-01-02] MEDS ORDERED: ALPRAZolam 0.25 MG (XANAX) TAB ONE (18:00)
[2019-01-02] MEDS: ALPRAZolam 0.25 MG (XANAX) TAB PO PRN (18:04)
[2019-01-02] MEDS: ENOXAPARIN 40 MG/0.4 ML (LOVENOX) SYR SC SCH (18:04)
[2019-01-03 03:20] VITALS: BP 119/64
[2019-01-03] MEDS: HYDROcodone/APAP 5 MG/325 MG (LORTAB) TAB PO PRN ×3 (05:31→17:29)
[2019-01-03 08:00] VITALS: BP 117/80
[2019-01-03] MEDS ORDERED: METOCLOPRAMIDE INJ 10 MG/2 ML (REGLAN) IVP SCH (08:00)
[2019-01-03] MEDS: SENNA W/DOCUSATE (SENOKOT S) TABLET PO SCH (08:11)
[2019-01-03] MEDS: ALPRAZolam 0.25 MG (XANAX) TAB PO PRN ×2 (08:11→19:42)
[2019-01-03] MEDS: LEVETIRACETAM 500 MG (KEPPRA) TAB PO SCH ×2 (08:11→19:41)
--- NOTE | 2019-01-03 09:30 | NUR ---
10MG IV REGLAN GIVEN TO PATIENT PER ORDERS. PATIENT BEGAN TO EXPERIENCE HOT FLASH AND INVOLUNTARY FACIAL MOVEMENT. DR. GOVEA AT BEDSIDE. IV BENADRYL GIVEN AND REGLAN ADDED TO PATIENT'S ALLERGY LIST.
[2019-01-03] MEDS ORDERED: methylPREDNISolone 125 MG (Solu-MEDROL) VIAL ONE (09:40)
--- NOTE | 2019-01-03 10:37 | Progress Note ---
Subjective Date Seen by a Provider: Jan 03, 2019 Time Seen by a Provider: 09:00 Subjective/Events-last exam PT NOT FEELING WELL THIS MORNING APPARENTLY SHE HAD A ROUGH NIGHT LAST NIGHT - HAD TO BE PLACED BACK ON OXYGEN DUE TO O2 AT 85% AFTER I SAW THE PT - SHE HAD A REACTION TO THE REGLAN AND WAS HAVING FACIAL TWITCHING. Review of Systems General: Fatigue HEENT: No Head Aches Pulmonary: No Dyspnea, No Cough Cardiovascular: No: Chest Pain Gastrointestinal: Abdominal Pain; No: Nausea Neurological: Weakness; No: Confusion Objective Exam Last Set of Vital Signs Vital Signs Date Time Temp Pulse Resp B/P (MAP) Pulse Ox O2 Delivery O2 Flow Rate FiO2 01/03/19 03:20 99.1 86 20 119/64 (82) 96 Nasal Cannula 2.00 Capillary Refill : I&O Intake and Output 01/02/19 23:59 Intake Total 2060 ml Output Total 1100 ml Balance 960 ml Intake Oral 2060 ml Output Urine Total 900 ml Post Void Residual 200 ml # Voids 6 General: Alert, Oriented X3, Cooperative, No Acute Distress HEENT: Atraumatic, PERRLA Neck: Supple Lungs: Clear to Auscultation Heart: Regular Rate Abdomen: Normal Bowel Sounds, Soft Skin: No Rashes Neuro: Cranial Nerves 3-12 NL, Other (FACIAL TWITCHING) Psych/Mental Status: Mental Status NL, Mood NL Results Lab Microbiology 01/01/19 MRSA Screen - Final, Complete MRSA not isolated Assessment/Plan Assessment/Plan Assess & Plan/Chief Complaint SMALL BOWEL STRICTURE CROHN'S DISEASE ABDOMINAL PAIN CEREBRAL PALSY HX OF SEIZURE DISORDER MEDICATION REACTION - TO REGLAN EXTRAPYRAMIDAL SYMPTOMS SMALL BOWEL STRICTURE DUE TO CROHN'S DISEASE - DEFER TO DR. ANNE AT THIS TIME - SHE IS POST OP DAY #1 - DOING WELL, DRINKING WELL, WILL CONTINUE IN THE HOSPITAL FOR SEVERAL MORE DAYS WE INCREASE FOOD INTAKE AND WAIT FOR BOWEL FUNCTION TO RESUME. STOP REGLAN DUE TO EXTRAPYRAMIDAL SYMPTOMS. ABDOMINAL PAIN - STABLE WITH IV PAIN MEDICATION. CEREBRAL PALSY WITH HX OF SEIZURE DISORDER - RESUME KEPPRA - MONITOR SYMPTOMS. Clinical Quality Measures DVT/VTE Risk/Contraindication: Risk Factor Score Per Nursin RFS Level Per Nursing on Admit: 4+=Very High DARON GOVEA MD Jan 03, 2019 10:36
[2019-01-03] MEDS ORDERED: NS IV 1000 ML 1,000 ML IV SCH (10:45)
[2019-01-03] MEDS ORDERED: D5 1/2 NS W/KCL 20 MEQ/L 1,000 ML IV ONE (12:37)
--- NOTE | 2019-01-03 12:41 | Progress Note-Standard ---
Standard Progress Note Progress Notes/Assess & Plan Date Seen by a Provider: Jan 03, 2019 Time Seen by a Provider: 10:30 Progress/Assessment & Plan patient became tearful without any specific symptoms out coming. Afebrile and vital signs are stable. Pain control adequate. Incisions dry. Findings in the requirement to convert to open laparotomy revealed with the patient and the family. Reasonably comfortable. Developed extra-pyramidal side effects due to Reglan this morning, currently improving. Reports nausea. No abdominal distention. Pathology confirms features of Crohn's disease with fistula into the cecum. Cecum intravenous fluids in view of nausea. Final Diagnosis Crohn's disease of terminal ileum with stricture and fistula RAMÓN ANNE MD Jan 03, 2019 12:40
[2019-01-03] MEDS: D5 1/2 NS W/KCL 20 MEQ/L 1,000 ML IV SCH ×2 (12:42→20:49)
--- NOTE | 2019-01-03 14:06 | NUR ---
Initial visit with pt and her family: Offered prayer and pt began crying. She thanked me for visiting and said to tell Dr. Caputo that she was feeling better. Pt's family was tearful also, and expressed appreciation for our visit. Pt is [employer] and [facility] [place], [place].
--- NOTE | 2019-01-03 14:12 | Physical Therapy Progress Note ---
Therapy Progress Note Patient has been up in hallway ambulating with family x 3 sets on this date. PT to dismiss patient from services and family will continue. Family and patient agree. SUZANNE MOODY PT Jan 03, 2019 14:12
[2019-01-03 15:40] VITALS: BP 110/66
[2019-01-03] MEDS: ENOXAPARIN 40 MG/0.4 ML (LOVENOX) SYR SC SCH (17:25)
[2019-01-04] VITALS: BP 110/74
[2019-01-04] MEDS: HYDROcodone/APAP 5 MG/325 MG (LORTAB) TAB PO PRN ×3 (02:25→23:21)
[2019-01-04] MEDS: D5 1/2 NS W/KCL 20 MEQ/L 1,000 ML IV SCH ×3 (06:09→23:24)
[2019-01-04] MEDS: LEVETIRACETAM 500 MG (KEPPRA) TAB PO SCH ×2 (08:33→20:01)
[2019-01-04] MEDS: ALPRAZolam 0.25 MG (XANAX) TAB PO PRN ×2 (08:33→20:09)
[2019-01-04] MEDS: SENNA W/DOCUSATE (SENOKOT S) TABLET PO SCH (08:33)
[2019-01-04 08:45] VITALS: BP 131/78
[2019-01-04] MEDS ORDERED: MAGNESIUM CITRATE 300 ML BTL PO NR ×2 (10:30→15:30)
--- NOTE | 2019-01-04 11:04 | Progress Note-Standard ---
Standard Progress Note Progress Notes/Assess & Plan Date Seen by a Provider: Jan 04, 2019 Time Seen by a Provider: 09:20 Progress/Assessment & Plan patient became tearful without any specific symptoms out coming. Afebrile and vital signs are stable. Pain control adequate. Incisions dry. Findings in the requirement to convert to open laparotomy revealed with the patient and the family. Reasonably comfortable. Developed extra-pyramidal side effects due to Reglan this morning, currently improving. Reports nausea. No abdominal distention. Pathology confirms features of Crohn's disease with fistula into the cecum. Cecum intravenous fluids in view of nausea. no active concerns. Side effects from the ductal bromide resolved. No nausea. No abdominal distention. Incision dry. Awaiting passage of flatus. Final Diagnosis Crohn's disease of terminal ileum with stricture and fistula RAMÓN ANNE MD Jan 04, 2019 11:04
--- NOTE | 2019-01-04 15:40 | NUR ---
PATIENT BEGAN TO VOMIT THIN DARK BROWN EMESIS. IV ZOFRAN GIVEN AND DR. ANNE INFORMED OF PATIENT CONDITION. ORDERS RECEIVED FOR PROTONIX BID AND 2ND DOSE OF MAGNESIUM CITRATE HELD.
[2019-01-04 15:53] VITALS: BP 128/83
[2019-01-04] MEDS: ENOXAPARIN 40 MG/0.4 ML (LOVENOX) SYR SC SCH (18:06)
[2019-01-04] MEDS: PANTOPRAZOLE 40 MG (PROTONIX) VIAL IV SCH (20:01)
[2019-01-04 23:59] VITALS: BP 115/72
--- NOTE | 2019-01-05 03:00 | NUR ---
FAMILY STATED PATIENT VOMITED BROWN EMESIS THAT SMELLED LIKE ORANGE JUICE X1. KAILEE OFFERED, BUT PATIENT DECLINED NEED STATING SHE FELT BETTER AFTER THROWING UP. WILL CONTINUE TO MONITOR.
[2019-01-05] MEDS: D5 1/2 NS W/KCL 20 MEQ/L 1,000 ML IV SCH ×2 (04:31→08:09)
--- NOTE | 2019-01-05 07:00 | NUR ---
NO NAUSEA AT THIS TIME. FAMILY IN ROOM STATES PATIENT ONLY HAD EMESIS X1 THROUGH THE NIGHT. DENIES NEEDS AT THIS TIME.
[2019-01-05 07:37] VITALS: BP 121/71
[2019-01-05] MEDS: PANTOPRAZOLE 40 MG (PROTONIX) VIAL IV SCH ×2 (08:09→20:59)
[2019-01-05] MEDS: ALPRAZolam 0.25 MG (XANAX) TAB PO PRN ×2 (08:10→21:08)
[2019-01-05] MEDS: SENNA W/DOCUSATE (SENOKOT S) TABLET PO SCH (08:11)
[2019-01-05] MEDS: LEVETIRACETAM 500 MG (KEPPRA) TAB PO SCH ×2 (08:11→21:09)
[2019-01-05] MEDS: HYDROcodone/APAP 5 MG/325 MG (LORTAB) TAB PO PRN (10:29)
--- NOTE | 2019-01-05 11:45 | NUR ---
DR ANNE AT BEDSIDE TO INSERT NG TUBE WITH LOW INTERMITTENT SUCTION. KIMBERLY DOMINGUEZ AND THIS COPPER TAPPER TO ASSIST.
[2019-01-05] MEDS ORDERED: AA 4.25% W/LYTES IN D5W IV SOL 1,000 ML IV SCH (12:15)
--- NOTE | 2019-01-05 12:21 | Progress Note-Standard ---
Standard Progress Note Progress Notes/Assess & Plan Date Seen by a Provider: Jan 05, 2019 Time Seen by a Provider: 11:40 Progress/Assessment & Plan patient became tearful without any specific symptoms out coming. Afebrile and vital signs are stable. Pain control adequate. Incisions dry. Findings in the requirement to convert to open laparotomy revealed with the patient and the family. Reasonably comfortable. Developed extra-pyramidal side effects due to Reglan this morning, currently improving. Reports nausea. No abdominal distention. Pathology confirms features of Crohn's disease with fistula into the cecum. Cecum intravenous fluids in view of nausea. no active concerns. Side effects from the ductal bromide resolved. No nausea. No abdominal distention. Incision dry. Awaiting passage of flatus. patient and the family reported at least 3-4 episodes of fecal and vomiting with large quantities. I was not notified about any of these at all. On examination, her abdomen is distended and she is nauseous. Postoperative ileus is very likely and therefore I have just placed a nasogastric tube, obtaining bilious fluid. Peripheral parenteral nutrition would be administered today followed by TPN tomorrow. Final Diagnosis Crohn's disease with fistula involving the terminal ileum RAMÓN ANNE MD Jan 05, 2019 12:21
[2019-01-05] MEDS: AA 4.25% W/LYTES IN D5W IV SOL 1,000 ML IV SCH ×2 (12:59→20:59)
[2019-01-05 16:00] VITALS: BP 121/79
[2019-01-05] MEDS: ENOXAPARIN 40 MG/0.4 ML (LOVENOX) SYR SC SCH (17:31)
[2019-01-06] MEDS: AA 4.25% W/LYTES IN D5W IV SOL 1,000 ML IV SCH (05:00)
[2019-01-06 06:55] LABS: INR 1.1 (0.8-1.4); PROTHROMBIN TIME PATIENT 14.3 SEC (12.2-14.7)
[2019-01-06 07:03] LABS: ALANINE AMINOTRANSFERASE 121 U/L (0-55); ALBUMIN 3.2 GM/DL (3.2-4.5); ALKALINE PHOSPHATASE 62 U/L (40-136); BILIRUBIN,TOTAL 0.4 MG/DL (0.1-1.0); BUN/CREATININE RATIO 23; CALCIUM 8.3 MG/DL (8.5-10.1); CARBON DIOXIDE 23 MMOL/L (21-32); CHLORIDE 104 MMOL/L (98-107); CREATININE SERUM 0.71 MG/DL (0.60-1.30); GFR ESTIMATED > 60; GLUCOSE 102 MG/DL (70-105); PHOSPHORUS 4.1 MG/DL (2.3-4.7); POTASSIUM 4.3 MMOL/L (3.6-5.0); SODIUM 136 MMOL/L (135-145); TOTAL PROTEIN 5.8 GM/DL (6.4-8.2); TRIGLYCERIDES 172 MG/DL (<150)
[2019-01-06] MEDS: PANTOPRAZOLE 40 MG (PROTONIX) VIAL IV SCH (08:50)
[2019-01-06] MEDS: LEVETIRACETAM 500 MG (KEPPRA) TAB PO SCH (08:51)
[2019-01-06 09:00] VITALS: BP 117/83
--- NOTE | 2019-01-06 09:02 | Progress Note ---
Subjective Date Seen by a Provider: Jan 06, 2019 Time Seen by a Provider: 09:02 Objective Exam Last Set of Vital Signs Vital Signs Date Time Temp Pulse Resp B/P (MAP) Pulse Ox O2 Delivery O2 Flow Rate FiO2 01/06/19 00:00 98.9 98 16 96 Room Air 01/05/19 16:00 121/79 (93) 01/03/19 03:20 2.00 Capillary Refill : I&O Intake and Output 01/06/19 00:00 Intake Total 700 ml Output Total 1150 ml Balance -450 ml Intake Oral 700 ml Gastric Drainage Total 1150 ml # Voids 8 # Emeses 1 General: Alert, Oriented X3, Cooperative, No Acute Distress HEENT: Atraumatic, PERRLA Neck: Supple Lungs: Clear to Auscultation Heart: Regular Rate Abdomen: Normal Bowel Sounds, Soft Skin: No Rashes Neuro: Cranial Nerves 3-12 NL, Other (FACIAL TWITCHING) Psych/Mental Status: Mental Status NL, Mood NL Results Lab Laboratory Tests 01/06/19 06:19: Prothrombin Time 14.3, INR Comment 1.1, Sodium Level 136, Potassium Level 4.3, Chloride Level 104, Carbon Dioxide Level 23, Anion Gap 9, Blood Urea Nitrogen 16 , Creatinine 0.71, Estimat Glomerular Filtration Rate > 60, BUN/Creatinine Ratio 23, Glucose Level 102, Calcium Level 8.3L, Corrected Calcium 8.9, Phosphorus Level 4.1, Magnesium Level 2.0, Total Bilirubin 0.4, Aspartate Amino Transf (AST/SGOT) 84H, Alanine Aminotransferase (ALT/SGPT) 121H, Alkaline Phosphatase 62, Total Protein 5.8L, Albumin 3.2, Triglycerides Level 172H Microbiology 01/01/19 MRSA Screen - Final, Complete MRSA not isolated Assessment/Plan Assessment/Plan Assess & Plan/Chief Complaint SMALL BOWEL STRICTURE CROHN'S DISEASE ABDOMINAL PAIN CEREBRAL PALSY HX OF SEIZURE DISORDER MEDICATION REACTION - TO REGLAN EXTRAPYRAMIDAL SYMPTOMS SMALL BOWEL STRICTURE DUE TO CROHN'S DISEASE - DEFER TO DR. ANNE AT THIS TIME - SHE IS POST OP DAY #1 - DOING WELL, DRINKING WELL, WILL CONTINUE IN THE HOSPITAL FOR SEVERAL MORE DAYS WE INCREASE FOOD INTAKE AND WAIT FOR BOWEL FUNCTION TO RESUME. STOP REGLAN DUE TO EXTRAPYRAMIDAL SYMPTOMS. ABDOMINAL PAIN - STABLE WITH IV PAIN MEDICATION. CEREBRAL PALSY WITH HX OF SEIZURE DISORDER - RESUME KEPPRA - MONITOR SYMPTOMS. Clinical Quality Measures DVT/VTE Risk/Contraindication: Risk Factor Score Per Nursin RFS Level Per Nursing on Admit: 4+=Very High DARON GOVEA MD Jan 06, 2019 09:02
[2019-01-06] MEDS ORDERED: AA 4.25% W/LYTES IN D5W IV SOL 1,000 ML IV SCH (09:45)
[2019-01-06] MEDS ORDERED: diphenhydrAMINE 25 MG TAB (BENADRYL) PO PRN (10:45)
--- NOTE | 2019-01-06 12:00 | Progress Note-Standard ---
Standard Progress Note Progress Notes/Assess & Plan Date Seen by a Provider: Jan 06, 2019 Time Seen by a Provider: 12:00 Progress/Assessment & Plan patient became tearful without any specific symptoms out coming. Afebrile and vital signs are stable. Pain control adequate. Incisions dry. Findings in the requirement to convert to open laparotomy revealed with the patient and the family. Reasonably comfortable. Developed extra-pyramidal side effects due to Reglan this morning, currently improving. Reports nausea. No abdominal distention. Pathology confirms features of Crohn's disease with fistula into the cecum. Cecum intravenous fluids in view of nausea. no active concerns. Side effects from the ductal bromide resolved. No nausea. No abdominal distention. Incision dry. Awaiting passage of flatus. patient and the family reported at least 3-4 episodes of fecal and vomiting with large quantities. I was not notified about any of these at all. On examination, her abdomen is distended and she is nauseous. Postoperative ileus is very likely and therefore I have just placed a nasogastric tube, obtaining bilious fluid. Peripheral parenteral nutrition would be administered today followed by TPN tomorrow. postoperative ileus resolved and the patient has had several bowel movements with passage of flatus. No nausea vomiting. No abdominal distention on examination. Soft bed would be resumed and she be discharged this afternoon Final Diagnosis Crohn's disease of terminal ileum with strictures and fistulaE RAMÓN ANNE MD Jan 06, 2019 12:00
--- NOTE | 2019-01-06 12:04 | Discharge Summary ---
Diagnosis/Chief Complaint Date of Admission Jan 01, 2019 at 08:40 Date of Discharge 01/06/19 Discharge Date: Jan 06, 2019 Discharge Time: 14:00 Admission Diagnosis Admission Diagnosis small bowel mass Discharge Diagnosis Crohn's disease of terminal ileum with obstruction and fistula Reason Hospital Visit Admitted electively to address what appeared to be a mass of the distal small bowel with thickening of the wall. Initially an attempt to resect the small bowel using minimally invasive technique was made, but due to thickening of the mesentery and lack of progress, an open exploration was performed. An inflammatory mass of the terminal ileum involving the associated mesentery, causing proximal dilatation was encountered. Formal right colectomy colectomy had to be resorted to, to achieve healthy ends of the bowel for anastomosis. Her recovery was hampered by postoperative nausea vomiting, which has since resolved. At the time of discharge, she is able to tolerate a soft diet and she 'll be followed up in my office to the end of this week. Discharge Summary Procedures right hemicolectomy Consultations Dr. Saunders to help with medical management Discharge Physical Examination Allergies: Coded Allergies: codeine (Verified Allergy, Severe, psych, 12/30/18) metoclopramide (Verified Adverse Reaction, Intermediate, RASH, 01/03/19) extrapyramidal symptoms - moderate Vitals & I&Os Vital Signs Date Time Temp Pulse Resp B/P (MAP) Pulse Ox O2 Delivery O2 Flow Rate FiO2 01/06/19 09:00 98.4 101 20 117/83 (94) 95 Room Air 01/03/19 03:20 2.00 Hospital Course Labs (last 24 hrs) Laboratory Tests 01/01/19 09:00: Urine Test NEGATIVE 01/01/19 09:45: White Blood Count 5.9, Red Blood Count 4.23L, Hemoglobin 12.1, Hematocrit 37, Mean Corpuscular Volume 87, Mean Corpuscular Hemoglobin 29, Mean Corpuscular Hemoglobin Concent 33, Red Cell Distribution Width 16.8H, Platelet Count 478H, Mean Platelet Volume 9.6, Neutrophils (%) (Auto) 81H, Lymphocytes (%) (Auto) 11L , Monocytes (%) (Auto) 6, Eosinophils (%) (Auto) 2, Basophils (%) (Auto) 1, Neutrophils # (Auto) 4.8, Lymphocytes # (Auto) 0.6L, Monocytes # (Auto) 0.3, Eosinophils # (Auto) 0.1, Basophils # (Auto) 0.1 01/02/19 05:20: White Blood Count 10.7, Red Blood Count 3.61L, Hemoglobin 10.2L, Hematocrit 32L , Mean Corpuscular Volume 89, Mean Corpuscular Hemoglobin 28, Mean Corpuscular Hemoglobin Concent 32, Red Cell Distribution Width 17.0H, Platelet Count 426H, Mean Platelet Volume 10.2, Neutrophils (%) (Auto) 84H, Lymphocytes (%) (Auto) 5L , Monocytes (%) (Auto) 11, Eosinophils (%) (Auto) 0, Basophils (%) (Auto) 0, Neutrophils # (Auto) 9.0H, Lymphocytes # (Auto) 0.5L, Monocytes # (Auto) 1.2H, Eosinophils # (Auto) 0.0, Basophils # (Auto) 0.0, Neutrophils % (Manual) 88, Lymphocytes % (Manual) 3, Monocytes % (Manual) 9 01/06/19 06:19: Prothrombin Time 14.3, INR Comment 1.1, Sodium Level 136, Potassium Level 4.3, Chloride Level 104, Carbon Dioxide Level 23, Anion Gap 9, Blood Urea Nitrogen 16 , Creatinine 0.71, Estimat Glomerular Filtration Rate > 60, BUN/Creatinine Ratio 23, Glucose Level 102, Calcium Level 8.3L, Corrected Calcium 8.9, Phosphorus Level 4.1, Magnesium Level 2.0, Total Bilirubin 0.4, Aspartate Amino Transf (AST/SGOT) 84H, Alanine Aminotransferase (ALT/SGPT) 121H, Alkaline Phosphatase 62, Total Protein 5.8L, Albumin 3.2, Triglycerides Level 172H Microbiology 01/01/19 MRSA Screen - Final, Complete MRSA not isolated Pending Labs Microbiology Date/Time Source Procedure Growth Status 01/01/19 09:10 Nasal MRSA Screen - Final MRSA not isolated Complete Laboratory Tests 01/01/19 09:00: Urine Test NEGATIVE 01/01/19 09:45: White Blood Count 5.9, Red Blood Count 4.23, Hemoglobin 12.1, Hematocrit 37, Mean Corpuscular Volume 87, Mean Corpuscular Hemoglobin 29, Mean Corpuscular Hemoglobin Concent 33, Red Cell Distribution Width 16.8, Platelet Count 478, Mean Platelet Volume 9.6, Neutrophils (%) (Auto) 81, Lymphocytes (%) (Auto) 11, Monocytes (%) (Auto) 6, Eosinophils (%) (Auto) 2, Basophils (%) (Auto) 1, Neutrophils # (Auto) 4.8, Lymphocytes # (Auto) 0.6, Monocytes # (Auto) 0.3, Eosinophils # (Auto) 0.1, Basophils # (Auto) 0.1 01/02/19 05:20: White Blood Count 10.7, Red Blood Count 3.61, Hemoglobin 10.2, Hematocrit 32, Mean Corpuscular Volume 89, Mean Corpuscular Hemoglobin 28, Mean Corpuscular Hemoglobin Concent 32, Red Cell Distribution Width 17.0, Platelet Count 426, Mean Platelet Volume 10.2, Neutrophils (%) (Auto) 84, Lymphocytes (%) (Auto) 5, Monocytes (%) (Auto) 11, Eosinophils (%) (Auto) 0, Basophils (%) (Auto) 0, Neutrophils # (Auto) 9.0, Lymphocytes # (Auto) 0.5, Monocytes # (Auto) 1.2, Eosinophils # (Auto) 0.0, Basophils # (Auto) 0.0, Neutrophils % (Manual) 88, Lymphocytes % (Manual) 3, Monocytes % (Manual) 9 01/06/19 06:19: Prothrombin Time 14.3, INR Comment 1.1, Sodium Level 136, Potassium Level 4.3, Chloride Level 104, Carbon Dioxide Level 23, Anion Gap 9, Blood Urea Nitrogen 16 , Creatinine 0.71, Estimat Glomerular Filtration Rate > 60, BUN/Creatinine Ratio 23, Glucose Level 102, Calcium Level 8.3, Corrected Calcium 8.9, Phosphorus Level 4.1, Magnesium Level 2.0, Total Bilirubin 0.4, Aspartate Amino Transf (AST/SGOT) 84, Alanine Aminotransferase (ALT/SGPT) 121, Alkaline Phosphatase 62, Total Protein 5.8, Albumin 3.2, Prealbumin [Pending], Triglycerides Level 172 Discharge Home Medications: Active Scripts Active Reported Ortho Tri-Cyclen 28 Tablet (Norgestimate-Ethinyl Estradiol) 1 Each Tablet 1 Tab PO DAILY Keppra (Levetiracetam) 500 Mg Tablet 250 Mg PO BID TAKES 1/2 (500MG) TABLET Instructions to patient/family Please see electronic discharge instructions given to patient. Clinical Quality Measures DVT/VTE Risk/Contraindication: Risk Factor Score Per Nursin RFS Level Per Nursing on Admit: 4+=Very High RAMÓN ANNE MD Jan 06, 2019 12:04
[2019-01-06] MEDS ORDERED: TRAM50TA2 PO (12:06)
--- NOTE | 2019-01-06 12:07 | Discharge Inst-Simple/Standard ---
Discharge Inst-Standard Discharge Medications New, Converted or Re-Newed RX: RX on Chart Patient Instructions/Follow Up Plan of Care/Instructions/FU: february shower. Soft diet; follow-up with me this , the Activity as Tolerated: No Goal: no lifting or pushing Discharge Diet: Soft Diet RAMÓN ANNE MD Jan 06, 2019 12:07
[2019-01-06] MEDS ORDERED: CYANOCOBALAMIN INJ 1000 MCG/ML IM NR (12:15)
[2019-01-06] MEDS ORDERED: TPN IV SCH (12:30)
[2019-01-06] MEDS ORDERED: 1/2 NS IV SOLUTION 1,000 ML IV SCH (17:00)
[2019-01-06] MEDS ORDERED: PANTOPRAZOLE 40 MG (PROTONIX) TAB PO SCH (17:00)
[2019-01-06] MEDS ORDERED: [UNRECOGNIZED DRUG - OTHER] IV SCH ×10 (17:00)
[2019-01-06] MEDS ORDERED: POTASSIUM CHLORIDE IV SCH ×10 (17:00)
[2019-01-06] MEDS ORDERED: SODIUM CHLORIDE IV SCH ×10 (17:00)
== END 2019-01-06 13:16 | disposition home or self-care (01) | DRG 330 ==
LOC: 4TH 08:40 → SURG 08:41 → EDSTATUS 09:00 → 4TH 16:48
PROVIDERS: ADMIT Surgery; ATTEND Surgery
PROC: 8E0W4CZ Robotic Assisted Procedure of Trunk Region, Percutaneous Endoscopic Approach (ICD-10-PCS; principal; 2019-01-01 10:37)
PROC: 0DTF0ZZ Resection of Right Large Intestine, Open Approach (ICD-10-PCS; principal; 2019-01-01 10:37)
DX: K50.012 Crohn's disease of small intestine with intestinal obstruction (principal); K50.013 Crohn's disease of small intestine with fistula; K91.89 Other postprocedural complications and disorders of digestive system; K56.7 Ileus, unspecified; G80.9 Cerebral palsy, unspecified; G40.909 Epilepsy, unspecified, not intractable, without status epilepticus; R62.50 Unspecified lack of expected normal physiological development in childhood; F41.9 Anxiety disorder, unspecified; R05 Cough; J30.2 Other seasonal allergic rhinitis; E66.9 Obesity, unspecified; G25.1 Drug-induced tremor; T45.0X5A Adverse effect of antiallergic and antiemetic drugs, initial encounter; Z68.36 Body mass index [BMI] 36.0-36.9, adult; Z53.31 Laparoscopic surgical procedure converted to open procedure
CPT/HCPCS: 36415; 80053; 83735; 84100; 84134; 84478; 84703; 85007; 85025; 85027; 85610; 86850; 86900; 86901; 87081; 88307; 94664; 94760

== ENCOUNTER → 2019-04-22 | Outpatient (CLI) | payer MEDICARE, MEDICAID ==
[~2019-04-22] MED LIST changes: +TRAM50TA2 PO
--- NOTE | 2019-04-22 10:39 | Diagnostic Imaging Report ---
INDICATION: Left flank pain rating to the anterior portion of the abdomen x1 week. History of Crohn's. TECHNIQUE: 2 supine view of the abdomen 10:20 AM CORRELATION STUDY: 12/17/2018 FINDINGS: Surgical changes are noted about the right mid abdomen, new since prior study. There is pretty mild asymmetric fecal loading in and around the anastomotic suture lines. Bowel gas pattern otherwise unremarkable. No findings to suggest high-degree bowel obstruction. There is however generalized paucity of bowel gas. No definitive pathologic intra-abdominal calcifications. Mild leftward curvature lumbar spine. IMPRESSION: 1. Apparent interval surgical changes in the gastrointestinal tract right mid abdomen. No findings to suggest high-degree bowel obstruction. There is generalized paucity of bowel gas noted. Dictated by: Dictated on workstation # [id number]
== END ==
LOC: RAD 09:51
PROVIDERS: ATTEND Family Medicine
DX: K50.90 Crohn's disease, unspecified, without complications (principal); Z98.890 Other specified postprocedural states
CPT/HCPCS: 74018

== ENCOUNTER → 2021-09-20 | Outpatient (CLI) | payer MEDICARE, MEDICAID ==
[~2021-09-20] MED LIST changes: -NORG1TAB7 PO; +NORG1TAB87 PO; -TRAM50TA2 PO; +TRM50T PO
--- NOTE | 2021-09-20 12:24 | Diagnostic Imaging Report ---
Indication: Routine screening. Correlation is made prior mammogram 10/11/2017 and 04/16/2015. 2-D and 3-D bilateral screening mammography was performed with CAD. Scattered fibroglandular densities are identified bilaterally. The parenchymal pattern is stable. No mass or malignant-appearing microcalcifications are seen. There are occasional benign calcifications. Axillae are unremarkable. IMPRESSION: BI-RADS Category 2 No mammographic features suspicious for malignancy are identified. ACR BI-RADS Category 2: Benign findings. Result letter will be mailed to the patient. Note: At least 10% of breast cancer is not imaged by mammography. Dictated by: Dictated on workstation # [id number]
== END ==
LOC: RAD 08:45
PROVIDERS: ATTEND Nurse Practitioner Family
DX: Z12.31 Encounter for screening mammogram for malignant neoplasm of breast (principal)
CPT/HCPCS: 77063; 77067